=== PATIENT | female | born 1950 | race Caucasian/White ===

== ENCOUNTER → 2016-12-13 | Outpatient (CLI) | payer MEDICARE, MEDICAID | LOC: OD 15:26 | PROVIDERS: ATTEND Specialist | DX: C25.0 Malignant neoplasm of head of pancreas (principal); R97.0 Elevated carcinoembryonic antigen [CEA]; R97.8 Other abnormal tumor markers | CPT/HCPCS: 36415; 82378 ==

== ENCOUNTER → 2017-01-10 | Outpatient (CLI) | payer MEDICAID, MEDICARE ==
--- NOTE | 2017-01-11 15:59 | WOMENS IMAGING REPORT ---
EXAM DESCRIPTION: 3D SCREENING MAMMO BILAT COMPLETED DATE/TIME: 01/10/2017 3:05 pm REASON FOR STUDY: ROUTINE SCREENING; Z12.31 COMPARISON: Multiple since 2009 TECHNIQUE: Standard craniocaudal and mediolateral oblique views of each breast recorded using digita l acquisition and breast tomosynthesis. LIMITATIONS: None. FINDINGS: Findings present which are benign by mammographic criteria. No suspicious masses, calcifi cations or architectural distortion. Pertinent benign findings: The left breast is larger than the right, stable. There is asymmetric fib roglandular tissue in left breast 12 o'clock position without worrisome features. This is stable ove r the series of exams. Read with the assistance of CAD. .[facility] - R2 Cenova Version 1.3 .[facility] - R2 Cenova Version 1.3 .[facility] - R2 Cenova Version 2.4 .[facility] - R2 Cenova Version 2.4 .[facility] - R2 Line Mechanic Version 9.2 Benign mammographic findings may include one or more of the following: Smooth masses, popcorn/rim/co arse calcifications, asymmetries, post-procedure changes, and lesions with long-standing stability. IMPRESSION: BENIGN MAMMOGRAPHIC FINDINGS. BIRADS 2 BREAST DENSITY: b. There are scattered areas of fibroglandular density. BIRAD: 2 BENIGN FINDING(S) RECOMMENDATION: RECOMMENDATION: ROUTINE SCREENING Please continue yearly bilateral screening tomosynthesis in December 2017 COMMENT: The patient has been notified of the results by letter per SA requirements. Additional no tification policies are in place for contacting patient with suspicious or incomplete findings. Quality ID #[id number]: The [employer] recommends an annual screening mammogram for women aged 40 years or over. This facility utilizes a reminder system to ensure that all patients receive reminder letters, and/or direct phone calls for appointments. This includes reminders for routine scr eening mammograms, diagnostic mammograms, or other Breast Imaging Interventions when appropriate. Th is patient will be placed in the appropriate reminder system. The [employer] (ACR) has developed recommendations for screening MRI of the breast s in certain patient populations, to be used in conjunction with mammography. Breast MRI surveillanc e may be appropriate for women with more than 20% lifetime risk of developing breast cancer as deter mined by genetic testing, significant family history of the disease, or history of mantle radiation f or Hodgkins Disease. ACR Practice Guidelines 2008. DBT Technology DBT is a type of tomographic mammography. With conventional mammography, overlapping breast tissue ma y make lesions difficult to detect, even with good compression. DBT uses an x-ray tube that rotates a round the breast, taking images at different angles. These images are then combined to create thin sl ices of the breast that the radiologist can view as a 3D reconstruction. The [employer] Gaming unit can perform full-field digital mammograms (2D imaging); or DBT (3D imaging); or both, in a combination mode that quickly performs both the mammogram and the tomosynthesis scan while the breast is still compressed. RS 6045F: Fluoroscopic imaging is not utilized for breast tomosynthesis. TECHNICAL DOCUMENTATION: FINDING NUMBER: (1) ASSESSMENT: (1) JOB ID: [id number] [employer]- All Rights Reserved
== END ==
LOC: WI 14:49
PROVIDERS: ATTEND Family Medicine
DX: Z12.31 Encounter for screening mammogram for malignant neoplasm of breast (principal)
CPT/HCPCS: 77063; G0202; 77067

== ENCOUNTER → 2017-12-26 | Outpatient (CLI) | payer MEDICARE, MEDICAID ==
--- NOTE | 2017-12-26 15:55 | RADIOLOGY REPORT (SQ) ---
EXAM DESCRIPTION: MRI LT LOWER JOINT WITHOUT COMPLETED DATE/TIME: 12/26/2017 3:42 pm REASON FOR STUDY: OTHER CHONDROCALCINOSIS, LEFT KNEE (M11.262) M11.262 OTHER CHONDROCALCINOSIS, LEF T KNEE COMPARISON: None. TECHNIQUE: Leftknee images acquired and stored on PACS. Multiplanar images include fat sensitive se quences as T1, water sensitive sequences as FST2 or STIR, cartilage sensitive sequences as FSPD, and gradient echo sequences. LIMITATIONS: None. FINDINGS: JOINT AND BURSAE: Small -moderate effusion. No loose bodies appreciated. BONE CORTEX AND MARROW: No alteration of signal to suggest marrow replacement. No worrisome bone lesi ons. No occult fracture. ACL: Intact. No degeneration or ganglion cyst. PCL: Intact. MCL: Intact. No periligamentous edema or fluid. LCL: Intact. No periligamentous edema or fluid. MEDIAL MENISCUS: No tear. LATERAL MENISCUS: Mild degenerative signal is suggested in the posterior horn. Heterogeneous signal in the anterior horn and probably extending into the body. Unclear if this is artifact or related to chondrocalcinosis or true tear. MEDIAL COMPARTMENT: No focal chondral lesions or reactive bone changes. LATERAL COMPARTMENT: No focal chondral lesions or reactive bone changes. PATELLA: Normal location. No focal chondral defects or reactive bone change. EXTENSOR MECHANISM: Intact. Quadriceps and patella tendons normal. SOFT TISSUES: Small popliteal cyst. Appropriate vascular flow voids. OTHER: No other significant finding. IMPRESSION: 1. Lateral meniscus changes as above which may be largely artifact. 2. Joint effusion. No loose bodies appreciated. TECHNICAL DOCUMENTATION: JOB ID: [id number] [employer]- All Rights Reserved Reading location - IP/workstation name: [email or web address]
== END ==
LOC: RAD 14:24
PROVIDERS: ATTEND Orthopaedic Surgery
DX: M11.262 Other chondrocalcinosis, left knee (principal)

== ENCOUNTER → 2018-08-12 | Outpatient (CLI) | payer MEDICARE, MEDICAID ==
--- NOTE | 2018-08-12 14:54 | RADIOLOGY REPORT (SQ) ---
EXAM DESCRIPTION: MRI CERVICAL SPINE WITHOUT COMPLETED DATE/TIME: 08/12/2018 2:30 pm REASON FOR STUDY: M54.2 CERVICALGIA M54.2 CERVICALGIA COMPARISON: None. TECHNIQUE: Sagittal and Axial imaging includes T1, T2, STIR and gradient echo sequences. LIMITATIONS: None. FINDINGS: ALIGNMENT: Minimal degenerative anterolisthesis of C6 on C7. VERTEBRAE: Intact. BONE MARROW: Reactive endplate changes C5-6 DISCS: Loss of height and T2 signal C5-6. HARDWARE: None in the spine. CORD AND BASE OF BRAIN: Normal in size and signal intensity. SOFT TISSUES: No soft tissue masses. C1-C2: No significant spinal stenosis. C2-C3: No significant spinal stenosis or exit foraminal stenosis. C3-C4: No significant spinal stenosis or exit foraminal stenosis. C4-C5: Disc osteophyte complex asymmetric left with moderate narrowing of left exit foramina. . Mild flattening of the anterior thecal sac. C5-C6: Disc osteophyte complex with moderate narrowing of the exit foramina. Flattening of the anter ior thecal sac. C6-C7: Disc osteophyte complex asymmetric left with mild narrowing of the left exit foramina. C7-T1: No significant spinal stenosis or exit foraminal stenosis. UPPER THORACIC: Incompletely imaged. No significant spinal stenosis or exit foraminal stenosis. OTHER: No other significant finding. IMPRESSION: Multilevel milder moderate spondylosis. Most prominent C5-6 with mild spinal stenosis a nd moderate narrowing of the exit foramina. TECHNICAL DOCUMENTATION: JOB ID: [id number] [employer]- All Rights Reserved Reading location - IP/workstation name: [email or web address]
== END ==
LOC: RAD 13:16
PROVIDERS: ATTEND Orthopaedic Surgery
DX: M54.2 Cervicalgia (principal); M47.892 Other spondylosis, cervical region
CPT/HCPCS: 72141

== ENCOUNTER → 2019-01-29 | Outpatient (CLI) | payer MEDICARE, MEDICAID ==
--- NOTE | 2019-01-29 16:33 | WOMENS IMAGING REPORT ---
EXAM DESCRIPTION: 3D SCREENING MAMMO BILAT COMPLETED DATE/TIME: 01/29/2019 3:05 pm REASON FOR STUDY: Z12.31 ENCOUNTER FOR SCREENING MAMMOGRAM FOR MALIGNANT NEOPLASM OF BREAST Z12.31 ENCNTR SCREEN MAMMOGRAM FOR MALIGNANT NEOPLASM OF ELMO COMPARISON: Multiple since 2009 EXAM PARAMETERS: Views: Standard craniocaudal and mediolateral oblique views of each breast recorded using digital acquisition and breast tomosynthesis. Read with the assistance of CAD. .[facility] - [employer]or Belt Repairer Version 9.2 LIMITATIONS: None. FINDINGS: No suspicious masses, suspicious calcifications or architectural distortion. No areas of c oncern. IMPRESSION: NEGATIVE MAMMOGRAM. BIRADS 1. BREAST DENSITY: b. There are scattered areas of fibroglandular density. BIRAD: ASSESSMENT: 1 NEGATIVE RECOMMENDATION: ROUTINE SCREENING COMMENT: The patient has been notified of the results by letter per MQSA requirements. Additional no tification policies are in place for contacting patient with suspicious or incomplete findings. Quality ID #[id number]: The [employer] recommends an annual screening mammogram for women aged 40 years or over. This facility utilizes a reminder system to ensure that all patients receive reminder letters, and/or direct phone calls for appointments. This includes reminders for routine scr eening mammograms, diagnostic mammograms, or other Breast Imaging Interventions when appropriate. Th is patient will be placed in the appropriate reminder system. TECHNICAL DOCUMENTATION: FINDING NUMBER: (1) ASSESSMENT: (1) JOB ID: [id number] [employer]- All Rights Reserved Reading location - IP/workstation name: [email or web address]
== END ==
LOC: WI 14:44
PROVIDERS: ATTEND Family Medicine
DX: Z12.31 Encounter for screening mammogram for malignant neoplasm of breast (principal)
CPT/HCPCS: 77063; 77067

== ENCOUNTER 2019-04-15 18:43 | Emergency (ER) | payer MEDICARE, MEDICAID ==
--- NOTE | 2019-04-15 19:43 | ER Document Report ---
ED Medical Screen (RME) - General Chief Complaint: Fall Stated Complaint: FALL/HEAD INJURY Time Seen by Provider: 04/15/19 19:36 Primary Care Provider: ED HODGES DO [Primary Care Provider] - Follow up as needed TRAVEL OUTSIDE OF THE [place] IN LAST 30 DAYS: No - HPI Notes: 04/15/19 19:42 Patient is a 68-year-old female with history of hypertension who presents complaining of having occasional weakness for the past 1 to 2 weeks with a fall on April 03 in the fall in April 04. Patient states that she was told she needed to come here for evaluation by her family doctor and for imaging of the neck. Patient has been continuing to have neck pain since the fall. She is not on any blood thinning medications. She is able to eat and drink without difficulty. She is urinating normally. No fever, chest pain, shortness of breath, abdominal pain. PHYSICAL EXAMINATION: accompanied by female nurse GENERAL: Well-appearing, well-nourished and in no acute distress. A&Ox3. Answers questions appropriately. HEAD: Atraumatic, normocephalic. Non-tender. No warner sign EYES: Pupils equal round and reactive to light, extraocular movements intact, sclera anicteric, conjunctiva are normal. No raccoon eyes/entrapment ENT: EAC clear b/l. TM's intact b/l without erythema, fluid, or perforation. Nares patent and without discharge. oropharynx clear without exudates. No tonsilar hypertrophy or erythema. Moist mucous membranes. No sinus tenderness. No hemotympanum/CSF discharge. NECK: LROM to rotation due to pain. + midline tenderness. + tenderness left trap mm. Musculoskeletal: Ext b/l: FROM to passive/active. Strength 5+/5. No deficits noted. No bony tenderness of extremities. NEUROLOGICAL: NIH 0. GCS 15. Cranial nerves grossly intact. Normal speech, normal gait. Normal sensory, motor exams. PSYCH: Normal mood, normal affect. SKIN: Warm, Dry, normal turgor, no rashes or lesions noted. - Related Data Allergies/Adverse Reactions: No Known Allergies Allergy (Verified 01/28/16 13:17) Past Medical History - Social History Chew tobacco use (# tins/day): No Frequency of alcohol use: None Drug Abuse: None - Past Medical History Cardiac Medical History: Reports: Hx Hypercholesterolemia, Hx Hypertension GI Medical History: Reports: Hx Gastroesophageal Reflux Disease Past Surgical History: Reports: Hx Cholecystectomy, Hx Orthopedic Surgery - left FA Fx - Immunizations Hx Diphtheria, Pertussis, Tetanus Vaccination: No Physical Exam - Vital signs Vitals: Temp Pulse Resp BP Pulse Ox 98.1 F 96 16 177/87 H 97 04/15/19 19:18 04/15/19 19:18 04/15/19 19:18 04/15/19 19:18 04/15/19 19:18 Course - Vital Signs Vital signs: Temp Pulse Resp BP Pulse Ox 98.1 F 96 16 177/87 H 97 04/15/19 19:34 04/15/19 19:34 04/15/19 19:34 04/15/19 19:34 04/15/19 19:34 Doctor's Discharge - Discharge Referrals: ED HODGES DO [Primary Care Provider] - Follow up as needed
[2019-04-15 20:26] LABS: APPEARANCE,URINE CLEAR; BILIRUBIN,URINE NEGATIVE (NEGATIVE); COLOR,URINE YELLOW; GLUCOSE, URINE NEGATIVE (NEGATIVE); KETONES,URINE NEGATIVE (NEGATIVE); PROTEIN,URINE NEGATIVE (NEGATIVE); URINE SPECIFIC GRAVITY 1.021; UROBILINOGEN,URINE NEGATIVE mg/dL (<2.0)
[2019-04-15 20:35] LABS: ABSOLUTE BASOPHILS # (AUTO) 0.1 10^3/uL (0.0-0.2); ABSOLUTE EOSINOPHILS # (AUTO) 0.1 10^3/uL (0.0-0.6); ABSOLUTE LYMPHOCYTES (AUTO) 2.2 10^3/uL (0.5-4.7); ABSOLUTE MONOCYTES (AUTO) 0.6 10^3/uL (0.1-1.4); ABSOLUTE NEUT (AUTO) 5.7 10^3/uL (1.7-8.2); BASOPHILS % (AUTO) 0.7 % (0-2); EOSINOPHILS % (AUTO) 1.5 % (0-6); HEMATOCRIT 31.4 % (36.0-47.0); HEMOGLOBIN 10.9 g/dL (12.0-15.5); LYMPHOCYTES % (AUTO) 25.1 % (13-45); MEAN CORPUSCULAR HEMOGLOBIN 30.8 pg (27.0-33.4); MEAN CORPUSCULAR HGB CONC 34.6 g/dL (32.0-36.0); MEAN CORPUSCULAR VOLUME 89 fl (80-97); MONOCYTES % (AUTO) 6.7 % (3-13); PLATELET COUNT 435 10^3/uL (150-450); RED BLOOD COUNT 3.53 10^6/uL (3.72-5.28); RED CELL DISTRIBUTION WIDTH 11.9 % (11.5-14.0); TOTAL CELLS COUNTED % (AUTO) 100 %; WHITE BLOOD COUNT 8.6 10^3/uL (4.0-10.5)
[2019-04-15 20:47] LABS: ALBUMIN 3.9 g/dL (3.5-5.0); ALKALINE PHOSPHATASE 97 U/L (38-126); ANION GAP 9 (5-19); ASPARTATE AMINO TRANSFERASE 21 U/L (14-36); BILIRUBIN,DIRECT 0.2 mg/dL (0.0-0.4); BILIRUBIN,TOTAL 0.2 mg/dL (0.2-1.3); BLOOD UREA NITROGEN 27 mg/dL (7-20); CARBON DIOXIDE 31 mmol/L (22-30); CHLORIDE 101 mmol/L (98-107); GLUCOSE 95 mg/dL (75-110); POTASSIUM 4.1 mmol/L (3.6-5.0); TOTAL PROTEIN 6.8 g/dL (6.3-8.2)
--- NOTE | 2019-04-15 20:49 | ER Document Report ---
ED General - General Chief Complaint: Fall Stated Complaint: FALL/HEAD INJURY Time Seen by Provider: 04/15/19 19:36 Primary Care Provider: ED HODGES DO [ACTIVE STAFF] - Follow up as needed TRAVEL OUTSIDE OF THE [place] IN LAST 30 DAYS: No - HPI Onset: Other - Patient fell on Apr 03 and Apr 04 and vincent started to have pain on in her neck Onset/Duration: Gradual Quality of pain: Achy, Sharp Severity: Moderate Pain Level: 4 Associated symptoms: None Exacerbated by: Movement Relieved by: Remaining still Similar symptoms previously: No Recently seen / treated by doctor: No Notes: 68 year old female with a history of Chronic Pain (she is followed at a pain clinic and it sounds like she is maintained on Gabapentin), HTN, HLD, GERD here for neck pain for the last 1-2 weeks. The patient says she fell twice on Apr 03 and Apr 04 and then she developed pain in her neck on which radiates to her head and to her left arm at times. The patient has been using her previously prescribed Gabapentin and Tylenol with mild relief. The patient denies weakness in her arms or hands. - Related Data Allergies/Adverse Reactions: No Known Allergies Allergy (Verified 01/28/16 13:17) Past Medical History - Social History Smoking Status: Never Smoker Chew tobacco use (# tins/day): No Frequency of alcohol use: None Drug Abuse: None Family History: Hypertension Patient has suicidal ideation: No Patient has homicidal ideation: No - Past Medical History Cardiac Medical History: Reports: Hx Hypercholesterolemia, Hx Hypertension GI Medical History: Reports: Hx Gastroesophageal Reflux Disease Musculoskeletal Medical History: Reports Other Other: Chronic Joint and Back Pains Past Surgical History: Reports: Hx Cholecystectomy, Hx Orthopedic Surgery - left FA Fx - Immunizations Hx Diphtheria, Pertussis, Tetanus Vaccination: No Hx Pneumococcal Vaccination: 01/19/11 Review of Systems - Review of Systems Constitutional: No symptoms reported EENT: No symptoms reported Cardiovascular: No symptoms reported Respiratory: No symptoms reported Gastrointestinal: No symptoms reported Genitourinary: No symptoms reported Female Genitourinary: No symptoms reported Musculoskeletal: Neck pain - which radiates to her head and left arm Skin: No symptoms reported Hematologic/Lymphatic: No symptoms reported Neurological/Psychological: No symptoms reported Physical Exam - Vital signs Vitals: Temp Pulse Resp BP Pulse Ox 98.1 F 96 16 177/87 H 97 04/15/19 19:18 04/15/19 19:18 04/15/19 19:18 04/15/19 19:18 04/15/19 19:18 - Notes Notes: GENERAL: Well-appearing, well-nourished and in no acute distress. HEAD: Atraumatic, normocephalic. EYES: Pupils equal round and reactive to light, extraocular movements intact, sclera anicteric, conjunctiva are normal. ENT: Nares patent, oropharynx clear without exudates. Moist mucous membranes. NECK: Slightly limited range of motion due to pain, midline tenderness around C5-C6 area. LUNGS: Breath sounds clear to auscultation bilaterally and equal. No wheezes r ales or rhonchi. HEART: Regular rate and rhythm without murmurs, rubs or gallops. ABDOMEN: Soft, nontender, normoactive bowel sounds. No guarding, no rebound. No masses appreciated. EXTREMITIES: Normal range of motion, no pitting or edema. No clubbing or cyanosis. NEUROLOGICAL: Cranial nerves II through XII grossly intact. Normal speech, normal gait. Normal strength and sensation in upper extremities. PSYCH: Normal mood, normal affect. SKIN: Warm, Dry, normal turgor, no rashes or lesions noted. Morning. Course - Re-evaluation Re-evalutation: 04/15/19 21:23 The patient has pain in her C Spine since a fall in late March. The CT scan shows some Retrolisthesis of C5-C6 and Degenerative changes but no acute injuries. The patient was told of her CT findings and she was was encouraged to follow up with her pain clinic and with a Spine Surgeon for further management. Since the patient likely has a Pain Contract, will DC with Naproxen and Lidocaine Patches. - Vital Signs Vital signs: Temp Pulse Resp BP Pulse Ox 98.1 F 96 16 177/87 H 97 04/15/19 19:34 04/15/19 19:34 04/15/19 19:34 04/15/19 19:34 04/15/19 19:34 - Laboratory Result Diagrams: 04/15/19 20:15 04/15/19 20:15 Laboratory results interpreted by me: 04/15/19 04/15/19 20:15 20:15 RBC 3.53 L Hgb 10.9 L Hct 31.4 L Carbon Dioxide 31 H BUN 27 H - Diagnostic Test Radiology reviewed: Image reviewed, Reports reviewed Discharge - Discharge Clinical Impression: Neck pain Condition: Fair Disposition: HOME, SELF-CARE Instructions: Neck Injury (Cervical Strain) ([facility]) Additional Instructions: Use the prescribed Naproxen for pain along with over the counter Tylenol and your previously prescribed Gabapentin. Also use the prescribed Lidocaine Patches. Follow up with your primary care doctor, your Pain Clinic, and consider follow up with a Spine Surgeon or an Orthopedic Surgeon. Prescriptions: Lidocaine [Lidoderm 5% (700 mg) Transdermal Patch] 1 patch TP DAILY #30 adh..patch Referrals: ED HODGES DO [ACTIVE STAFF] - Follow up as needed
--- NOTE | 2019-04-15 21:19 | RADIOLOGY REPORT (SQ) ---
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 COMPARISON: None. TECHNIQUE: CT scan of the cervical spine without IV contrast. This exam was performed according to our departmental dose-optimization program, which includes automated exposure control, adjustment of the mA and/or kV according to patient size and/or use of iterative reconstruction technique. FINDINGS: No acute cervical fracture or prevertebral soft tissue swelling is seen. There is straightening of the normal cervical lordosis, which may be due to cervical collar, muscle spasm, or patient positioning. Retrolisthesis of C5-C6. Multilevel degenerative disc disease along with facet arthropathy is present. IMPRESSION: No acute fracture or subluxation of the cervical spine.
[2019-04-15 22:50] VITALS: BP 182/77
== END 2019-04-15 22:47 | disposition home or self-care (01) ==
LOC: ER 18:43
DX: S09.90XA Unspecified injury of head, initial encounter (principal); W19.XXXA Unspecified fall, initial encounter; G89.29 Other chronic pain; M54.2 Cervicalgia; I10 Essential (primary) hypertension; E78.00 Pure hypercholesterolemia, unspecified; Z90.49 Acquired absence of other specified parts of digestive tract
CPT/HCPCS: 36415; 72125; 80053; 81001; 85025; 99284

== ENCOUNTER → 2019-04-29 | Outpatient (CLI) | payer MEDICARE, MEDICAID ==
--- NOTE | 2019-04-29 13:57 | RADIOLOGY REPORT (SQ) ---
EXAM DESCRIPTION: CT HEAD WITHOUT COMPLETED DATE/TIME: 04/29/2019 1:46 pm REASON FOR STUDY: REPEATED FALLS (R29.6) M54.16 RADICULOPATHY, LUMBAR REGION M25.511 PAIN IN RIGHT SHOULDER R29.6 REPEATED FALLS COMPARISON: None. TECHNIQUE: Axial images acquired through the brain without intravenous contrast. Images reviewed wi th bone, brain and subdural windows. Additional sagittal and coronal reconstructions were generated. Images stored on PACS. All CT scanners at this facility use dose modulation, iterative reconstruction, and/or weight based d osing when appropriate to reduce radiation dose to as low as reasonably achievable (ALARA). [facility]: Dose Right [facility]: CareDose [facility]: Dose Right [facility]: Teradose 4D [facility]: eeGeo RADIATION DOSE: CT Rad equipment meets quality standard of care and radiation dose reduction techniq ues were employed. CTDIvol: 48.6 mGy. DLP: 929 mGy-cm. mGy. LIMITATIONS: None. FINDINGS: VENTRICLES: Normal size and contour. CEREBRUM: No masses. No hemorrhage. No midline shift. No evidence for acute infarction. Normal gra y/white matter differentiation. No areas of low density in the white matter. CEREBELLUM: No masses. No hemorrhage. No alteration of density. No evidence for acute infarction. EXTRAAXIAL SPACES: No fluid collections. No masses. ORBITS AND GLOBE: No intra- or extraconal masses. Normal contour of globe without masses. CALVARIUM: No fracture. PARANASAL SINUSES: No fluid or mucosal thickening. SOFT TISSUES: No mass or hematoma. OTHER: No other significant finding. IMPRESSION: NORMAL BRAIN CT WITHOUT CONTRAST. EVIDENCE OF ACUTE STROKE: NO. COMMENT: Quality ID # [id number]: Final reports with documentation of one or more dose reduction techniques (e.g., Automated exposure control, adjustment of the mA and/or kV according to patient size, use of iterative reconstruction technique) TECHNICAL DOCUMENTATION: JOB ID: [id number] [employer]- All Rights Reserved Reading location - IP/workstation name: [email or web address]
--- NOTE | 2019-04-29 15:04 | RADIOLOGY REPORT (SQ) ---
EXAM DESCRIPTION: MRI LUMBAR SPINE WITHOUT COMPLETED DATE/TIME: 04/29/2019 2:48 pm REASON FOR STUDY: LUMBAR RADICULOPATHY (M54.16) M54.16 RADICULOPATHY, LUMBAR REGION M25.511 PAIN I N RIGHT SHOULDER R29.6 REPEATED FALLS COMPARISON: None. TECHNIQUE: Sagittal and Axial imaging includes T1, T2, STIR and gradient echo sequences. Coronal T2/ HASTE imaging. LIMITATIONS: None. FINDINGS: VISUALIZED UPPER ABDOMEN: Limited evaluation. No acute or suspicious findings suggested. SEGMENTATION: No transitional anatomy. The lowest well-developed disc space is labeled L5-S1. ALIGNMENT: Anatomic. VERTEBRAE: Intact. BONE MARROW: Normal. No marrow replacement or reactive changes. DISC SIGNAL: Loss of normal height and signal throughout the lumbar spine. POSTERIOR ELEMENTS: Generally intact. No pars defect evident. HARDWARE: None in the spine. CORD AND CONUS: Normal in size and signal intensity. Conus at the appropriate level. SOFT TISSUES: No aortic aneurysm seen. No bulky retroperitoneal adenopathy or mass. No paraspinal mas s or fluid. L1-L2: No significant spinal stenosis or exit foraminal stenosis. L2-L3: Broad-based annular disc bulging with bilateral facet arthropathy. There is mild central sten osis. There is asymmetric narrowing of the right neural foramina. L3-L4: Broad-based disc/osteophyte complex. Bilateral facet arthropathy. Mild central canal stenosi s. Bilateral foraminal narrowing right greater than left. L4-L5: Broad-based disc/ osteophyte complex with bilateral facet arthropathy. This results in modera te central canal stenosis. There is bilateral foraminal narrowing left greater than right. L5-S1: Annular disc bulging. Mild central stenosis. Bilateral foraminal narrowing left greater than right. LOWER THORACIC: Incompletely imaged. No stenosis seen. SACRUM: Visualized upper sacrum intact. OTHER: No other significant findings. IMPRESSION: 1. Multilevel spondylosis. 2. Broad-based annular disc bulging at L2-L3 with bilateral facet arthropathy. This results in mild central stenosis. There is asymmetric narrowing of the right neural foramina. 3. Broad-based disc/ osteophyte complex at L3-L4 along with facet arthropathy. This results in mild central stenosis and bilateral foraminal stenosis right greater than left. 4. Broad-based disc/ osteophyte complex at L4-L5 with bilateral facet arthropathy. This results in moderate central canal stenosis and bilateral foraminal narrowing left greater than right. 5. Annular disc bulging at L5-S1 resulting in mild central stenosis. There is bilateral foraminal s tenosis left greater than right. TECHNICAL DOCUMENTATION: JOB ID: [id number] [employer]- All Rights Reserved Reading location - IP/workstation name: [email or web address]
--- NOTE | 2019-04-29 16:16 | RADIOLOGY REPORT (SQ) ---
EXAM DESCRIPTION: MRI RT UPPER JOINT WITHOUT COMPLETED DATE/TIME: 04/29/2019 2:48 pm REASON FOR STUDY: PAIN IN RIGHT SHOULDER (M25.511) M54.16 RADICULOPATHY, LUMBAR REGION M25.511 AFIA N IN RIGHT SHOULDER R29.6 REPEATED FALLS COMPARISON: None. TECHNIQUE: Right shoulder images acquired and stored on PACS. Multiplanar imaging to include fat sen sitive sequences such as T1, water sensitive sequences such as FST2/STIR, cartilage sensitive sequenc es such as FSPD/gradient-echo sequences. LIMITATIONS: None. FINDINGS: BONE MARROW AND CORTEX: No worrisome bone lesions or marrow replacement. No occult fractur es. JOINT OR BURSAL EFFUSION: Small joint effusion. No loose bodies. GLENO-HUMERAL ARTICULATION: Normal articulation. No subluxation. No cystic change. No osteophytes or cartilage loss. ACROMION AND AC JOINT: Predominantly dorsal degenerative overgrowth. No subacromial compromise. ROTATOR CUFF AND INTERVAL: Diffuse cuff thickening, marked tendinosis. No high-grade partial or full -thickness tear. Mild bursal surface fraying particularly in the supraspinatus. No cuff muscle atro phy. LABRUM AND BICEPS LABRAL COMPLEX: Intact. No labral tear. Intra-articular long-head biceps tendon n ormal. Distal biceps in normal location in bicipital groove. REMAINDER OF LABRUM AND IGHL : No gross tear or paralabral cyst formation. Labral evaluation is less than optimal without joint distention. No thickening of IGHL to suggest adhesive capsulitis. PERIARTICULAR AND ADJACENT SOFT TISSUES: No masses or abnormal nodes. OTHER: No other significant finding. IMPRESSION: 1. AC arthropathy. 2. Cuff tendinosis. No high-grade partial or full-thickness tear detected. TECHNICAL DOCUMENTATION: JOB ID: [id number] [employer]- All Rights Reserved Reading location - IP/workstation name: [email or web address]
== END ==
LOC: RAD 13:23
PROVIDERS: ATTEND Anesthesiology Pain Medicine
DX: S06.0X0A Concussion without loss of consciousness, initial encounter (principal); W19.XXXA Unspecified fall, initial encounter; R41.82 Altered mental status, unspecified; R29.6 Repeated falls; M12.811 Other specific arthropathies, not elsewhere classified, right shoulder; M25.511 Pain in right shoulder; M54.16 Radiculopathy, lumbar region
CPT/HCPCS: 70450; 72148

== ENCOUNTER → 2019-05-01 | Outpatient (CLI) | payer MEDICARE, MEDICAID ==
[2019-05-01 14:44] LABS: ABSOLUTE RETICS # 0.062 10^6/uL (0.028-0.122); HEMATOCRIT 32.8 % (36.0-47.0); MEAN CORPUSCULAR HEMOGLOBIN 29.4 pg (27.0-33.4); MEAN CORPUSCULAR HGB CONC 33.5 g/dL (32.0-36.0); MEAN CORPUSCULAR VOLUME 88 fl (80-97); PLATELET COUNT 377 10^3/uL (150-450); RED BLOOD COUNT 3.73 10^6/uL (3.72-5.28); RED CELL DISTRIBUTION WIDTH 12.4 % (11.5-14.0); RETICULOCYTE COUNT (AUTO) 1.65 % (0.66-2.85); WHITE BLOOD COUNT 5.2 10^3/uL (4.0-10.5)
[2019-05-01 15:04] LABS: ANION GAP 11 (5-19); BLOOD UREA NITROGEN 19 mg/dL (7-20); CALCIUM 9.8 mg/dL (8.4-10.2); CARBON DIOXIDE 28 mmol/L (22-30); CHLORIDE 104 mmol/L (98-107); CHOLESTEROL 204.84 mg/dL (0-200); GLUCOSE 95 mg/dL (75-110); TRIGLYCERIDES 91 mg/dL (<150)
[2019-05-01 15:16] LABS: DIRECT LDL 126 mg/dL (<100)
== END ==
LOC: OD 13:45
PROVIDERS: ATTEND Family Medicine
DX: E78.5 Hyperlipidemia, unspecified (principal); I10 Essential (primary) hypertension; D64.9 Anemia, unspecified; Z79.899 Other long term (current) drug therapy
CPT/HCPCS: 36415; 80048; 80061; 83036; 84443; 85027; 85045

== ENCOUNTER 2019-05-31 20:37 | Inpatient (IN) | payer MEDICARE, MEDICAID ==
[2019-05-31] MEDS ORDERED: ONDANSETRON HCL INJ/PF 4 MG/2 ML SDV IV ONE (21:08)
[2019-05-31] MEDS ORDERED: NORMAL SALINE 1000 ML 1,000 ML IV ONE ×2 (21:08→23:17)
--- NOTE | 2019-05-31 21:14 | ER Document Report ---
ED General - General Stated Complaint: RIGHT KNEE PAIN Time Seen by Provider: 05/31/19 20:57 Notes: Patient is a 68-year-old female that comes from home by EMS for chief complaint of weakness and not being able to get up. Patient states that her knee started hurting and swelling (right knee), she states she has not been able to get up and became progressively weak, she states she has been lying on the floor since Sunday (3-4 days) until she was picked up today. EMS reports that the house was filled with trash and junk "like a hoarder", patient was found covered in feces and urine, patient had to be lifted to the stretcher. She denies vomiting, fever, difficulty breathing, fall injury. Past medical history reportedly only hypertension and arthritis in her knees. TRAVEL OUTSIDE OF THE [place] IN LAST 30 DAYS: No - Related Data Allergies/Adverse Reactions: No Known Allergies Allergy (Verified 01/28/16 13:17) Past Medical History - General Information source: Patient - Social History Smoking Status: Never Smoker Frequency of alcohol use: None Drug Abuse: None Lives with: Family Family History: Hypertension - Past Medical History Cardiac Medical History: Reports: Hx Hypercholesterolemia, Hx Hypertension GI Medical History: Reports: Hx Gastroesophageal Reflux Disease Past Surgical History: Reports: Hx Cholecystectomy, Hx Orthopedic Surgery - left FA Fx - Immunizations Hx Diphtheria, Pertussis, Tetanus Vaccination: No Hx Pneumococcal Vaccination: 01/19/11 Review of Systems - Review of Systems Constitutional: See HPI EENT: No symptoms reported Cardiovascular: No symptoms reported Respiratory: No symptoms reported Gastrointestinal: No symptoms reported Genitourinary: No symptoms reported Female Genitourinary: No symptoms reported Musculoskeletal: See HPI Skin: No symptoms reported Hematologic/Lymphatic: No symptoms reported Neurological/Psychological: No symptoms reported Physical Exam - Vital signs Vitals: Resp 18 05/31/19 20:56 - Notes Notes: GENERAL: Alert, interacts well, cooperative HEAD: Normocephalic, atraumatic. EYES: Pupils equal, round, and reactive to light. Extraocular movements intact. ENT: Oral mucosa very dry moist, tongue midline. Oropharynx unremarkable. Airway patent. NECK: Full range of motion. Supple. Trachea midline. LUNGS: Clear to auscultation bilaterally, no wheezes, rales, or rhonchi. No respiratory distress. No signs of trauma. HEART: Tachycardia, normal rhythm. No murmur ABDOMEN: Soft, non-tender. Non-distended. EXTREMITIES: Warmth and soft tissue swelling over the right knee anteriorly with pain with palpation of the area but no overt erythema. Range of motion is still intact. Left lateral mid thigh with skin breakdown and surrounding soft tissue swelling. No overt erythema or draining noted. There is tenderness to the general area. There is also some skin discoloration of the left shoulder near the point. 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 Lower extremities with some weakness and difficulty lifting both but this is equal, distal neurovascular exam intact. BACK: no cervical, thoracic, lumbar midline tenderness. No saddle anesthesia, normal distal neurovascular exam. Moves all extremities in full range of motion. NEUROLOGICAL: Alert and oriented x3. Normal speech. Cranial nerves II through XII grossly intact except very poor hearing. PSYCH: Normal affect, normal mood. SKIN: Warm, dry, normal turgor. Course - Re-evaluation Re-evalutation: Patient is awake, alert, cooperative. She has skin breakdown over the left hip with some surrounding bruising, bruising and abrasion over the left shoulder although she insists that she did not fall. This could be simply from a lying on her side for days. Patient is tachycardic, has extremely dry mucous membranes, and has swelling and pain to the right knee. Physical exam unremarkable otherwise. Work-up pending. CBC shows leukocytosis at greater than 20,000, no bandemia. Nonspecific minimal normocytic anemia. Chemistry shows elevated BUN but unremarkable creatinine, CK is very elevated at greater than 1500 (especially given patient's small size and emaciated appearance). Urine shows large amount of blood on dipstick with some on automation, urinary tract infection. Given Rocephin, IV fluids, clinical picture is consistent with skin breakdown, patient is persistently tachycardic, she has suspected rhabdomyolysis and urinary tract infection. She is not febrile or hypotensive. Patient is so weak she cannot stand. She will require hospitalization and possible placement. Discussed with Dr. Gorman, hospitalist, she is accepted to [facility] full admission. I discussed with patient, she states appreciation and agreement. - Vital Signs Vital signs: Temp Pulse Resp BP Pulse Ox 99.9 F 126 H 17 140/32 H 99 06/01/19 03:43 06/01/19 03:43 06/01/19 03:43 06/01/19 03:43 06/01/19 03:43 - Laboratory Result Diagrams: 06/01/19 04:50 06/01/19 04:50 Laboratory results interpreted by me: 05/31/19 05/31/19 05/31/19 21:00 21:00 21:00 WBC 22.1 H Hgb 11.7 L Hct 34.7 L Seg Neuts % (Manual) 91 H Lymphocytes % (Manual) 4 L Abs Neuts (Manual) 20.1 H Sodium 133.4 L Potassium 3.4 L Chloride 96 L BUN 42 H Glucose 170 H Direct Bilirubin 0.5 H AST 67 H Alkaline Phosphatase 131 H Creatine Kinase 1388 H Total Protein 6.2 L Albumin 3.1 L Prealbumin 5.2 L Urine Protein Urine Ketones Urine Blood Urine Urobilinogen Ur Leukocyte Esterase 05/31/19 23:50 WBC Hgb Hct Seg Neuts % (Manual) Lymphocytes % (Manual) Abs Neuts (Manual) Sodium Potassium Chloride BUN Glucose Direct Bilirubin AST Alkaline Phosphatase Creatine Kinase Total Protein Albumin Prealbumin Urine Protein >=500 H Urine Ketones TRACE H Urine Blood LARGE H Urine Urobilinogen 4.0 H Ur Leukocyte Esterase SMALL H Discharge - Discharge Clinical Impression: Weakness Urinary tract infection Qualifiers: Urinary tract infection type: site unspecified Hematuria presence: with hematuria Qualified Code(s): N39.0 - Urinary tract infection, site not specified Rhabdomyolysis Qualifiers: Rhabdomyolysis type: non-traumatic Qualified Code(s): M62.82 - Rhabdomyolysis Condition: Stable Disposition: ADMITTED INPATIENT Admitting Provider: Sherif (Hospitalist) Unit Admitted: Telemetry
[2019-05-31 21:33] LABS: HEMATOCRIT 34.7 % (36.0-47.0); HEMOGLOBIN 11.7 g/dL (12.0-15.5); MEAN CORPUSCULAR HEMOGLOBIN 28.7 pg (27.0-33.4); MEAN CORPUSCULAR HGB CONC 33.7 g/dL (32.0-36.0); MEAN CORPUSCULAR VOLUME 85 fl (80-97); PLATELET COUNT 358 10^3/uL (150-450); RED BLOOD COUNT 4.07 10^6/uL (3.72-5.28); RED CELL DISTRIBUTION WIDTH 13.8 % (11.5-14.0); WHITE BLOOD COUNT 22.1 10^3/uL (4.0-10.5)
[2019-05-31 21:39] LABS: ALBUMIN 3.1 g/dL (3.5-5.0); ALKALINE PHOSPHATASE 131 U/L (38-126); ANION GAP 13 (5-19); ASPARTATE AMINO TRANSFERASE 67 U/L (14-36); BILIRUBIN,DIRECT 0.5 mg/dL (0.0-0.4); BLOOD UREA NITROGEN 42 mg/dL (7-20); CALCIUM 9.2 mg/dL (8.4-10.2); CARBON DIOXIDE 24 mmol/L (22-30); CHLORIDE 96 mmol/L (98-107); CREATINE KINASE 1388 U/L (30-135); GLUCOSE 170 mg/dL (75-110); POTASSIUM 3.4 mmol/L (3.6-5.0); TOTAL PROTEIN 6.2 g/dL (6.3-8.2)
[2019-05-31 22:09] LABS: ABSOLUTE LYMPHOCYTES# (MANUAL) 0.9 10^3/uL (0.5-4.7); ABSOLUTE MONOCYTES # (MANUAL) 1.1 10^3/uL (0.1-1.4); BASOPHILS % (MANUAL) 0 % (0-2); EOSINOPHILS % (MANUAL) 0 % (0-6); LYMPHOCYTES % (MANUAL) 4 % (13-45); MONOCYTES % (MANUAL) 5 % (3-13); SEGMENTED NEUTROPHILS % (MAN) 91 % (42-78); TOTAL CELLS COUNTED 100
--- NOTE | 2019-05-31 22:09 | RADIOLOGY REPORT (SQ) ---
EXAM DESCRIPTION: Left shoulder RadLex: XR SHOULDER 2 OR MORE VIEWS Views: 3 CLINICAL HISTORY: 68 years Female; bruising, pain; COMPARISON: None. FINDINGS: Negative for acute fracture, dislocation, or radiopaque foreign body. There are chronic degenerative changes at the AC joint, with mild reactive bone formation. No subluxation. Surgical staple line is noted at the right lung apex. IMPRESSION: 1. No acute findings.
[2019-05-31 22:10] LABS: PLATELET COMMENT ADEQUATE; RBC MORPHOLOGY COMMENT NORMO-CYTIC/CHROMIC
--- NOTE | 2019-05-31 22:10 | RADIOLOGY REPORT (SQ) ---
EXAM DESCRIPTION: XR CHEST 1 VIEW COMPLETED DATE/TME: 05/31/2019 21:07 CLINICAL HISTORY: 68 years, Female, weakness COMPARISON: Prior study from 05/12/2014 NUMBER OF VIEWS: One TECHNIQUE: Single frontal view of the chest was obtained portably LIMITATIONS: None. FINDINGS: Cardiac and mediastinal contours are stable in appearance. Suture line projects over the right apex. Lungs are otherwise clear. No pleural effusion or pneumothorax. Surgical clips project over the right upper quadrant. IMPRESSION: No acute disease. copyright 2010 [employer]- All Rights Reserved
--- NOTE | 2019-05-31 22:10 | RADIOLOGY REPORT (SQ) ---
EXAM DESCRIPTION: XR KNEE 4 OR MORE VIEWS COMPLETED DATE/TME: 05/31/2019 21:07 CLINICAL HISTORY: 68 years, Female, swelling, pain COMPARISON: None. NUMBER OF VIEWS: 4 TECHNIQUE: Right LIMITATIONS: None. FINDINGS: No acute displaced fracture. Alignment is anatomic. Small to moderate joint effusion. Osteoarthritis. Chondrocalcinosis IMPRESSION: No acute bony injury to the knee. Small to moderate joint effusion copyright 2010 [employer]- All Rights Reserved
--- NOTE | 2019-05-31 22:15 | RADIOLOGY REPORT (SQ) ---
EXAM DESCRIPTION: XR HIP 2 OR MORE VIEWS COMPLETED DATE/TME: 05/31/2019 21:07 CLINICAL HISTORY: 68 years, Female, bruising, swelling, pain COMPARISON: None. NUMBER OF VIEWS: 2 TECHNIQUE: AP pelvis single view left hip LIMITATIONS: None. FINDINGS: Osteoarthritis. No acute fracture. Vascular calcification. Moderate hard stool within the colon IMPRESSION: No acute displaced fracture of the left hip. Osteoarthritis copyright 2010 [employer]- All Rights Reserved
[2019-05-31] MEDS ORDERED: MORPHINE SULFATE 10 MG/ML INJ IV ONE (22:32)
[2019-06-01 00:08] LABS: APPEARANCE,URINE CLOUDY; BILIRUBIN,URINE NEGATIVE (NEGATIVE); CALCIUM OXALATE CRYSTALS,URINE RARE /HPF; COLOR,URINE AMBER; GLUCOSE, URINE NEGATIVE (NEGATIVE); KETONES,URINE TRACE mg/dL (NEGATIVE); LEUKOCYTE ESTERASE,URINE SMALL (NEGATIVE); NITRITE,URINE NEGATIVE (NEGATIVE); PROTEIN,URINE >=500 mg/dL (NEGATIVE); URINE SPECIFIC GRAVITY 1.026
[2019-06-01] MEDS ORDERED: CEFTRIAXONE 1 GM/D5W RTU 1 GM/50 ML RTUPB IV ONE (00:23)
[2019-06-01] MEDS ORDERED: MAGNESIUM HYDROXIDE SUSP 30 ML UDCUP PO PRN (00:38)
[2019-06-01] MEDS ORDERED: MAG HYDROX/AL HYDROX/SIMETH SUSP 30 ML UDCUP PO PRN (00:38)
[2019-06-01] MEDS ORDERED: IPRATROPIUM/ALBUTEROL 0.5-2.5 MG/3 ML AMPUL NEB PRN (00:38)
[2019-06-01] MEDS ORDERED: AMLODIPINE BESYLATE 5 MG TABLET PO ONE (01:00)
[2019-06-01 01:21] LABS: PHOSPHORUS 3.3 mg/dL (2.5-4.5)
[2019-06-01 01:27] LABS: PREALBUMIN 5.2 mg/dL (17.6-36.0)
--- NOTE | 2019-06-01 03:25 | PDOC H&P ---
History of Present Illness Admission Date/PCP: 06/01/19 00:55 TYRONE FLORES MD Patient complains of: Right knee pain History of Present Illness: OSMAN VALERIO is a 68 year old female with past medical history of difficulty hearing, chronic pain and narcotic use who presents to the emergency room via EMS. She was found on the floor after 3 days disheveled surrounded by trash and excrement the resides with her mother and sister. Patient is unable to provide significant history that led up to her being found on the ground. In the emergency room she is found to have leukocytosis, rhabdomyolysis and a urinary tract infection. She is started on empiric antibiotics, IV fluids and referred to the hospitalist for admission. Patient is unable to recall the names of her medications Past Medical History Cardiac Medical History: Reports: Hyperlipidema, Hypertension GI Medical History: Reports: Gastroesophageal Reflux Disease Psychiatric Medical History: Denies: Dementia, Substance Abuse, Tobacco Dependency Past Surgical History Past Surgical History: Reports: Cholecystectomy, Orthopedic Surgery - left FA Fx Social History Information Source: Patient, [facility] Lives with: Family Smoking Status: Never Smoker Frequency of Alcohol Use: None Drugs: None - Advance Directive Resuscitation Status: Full Code Family History Family History: Hypertension Parental Family History Reviewed: Yes Children Family History Reviewed: Yes Sibling(s) Family History Reviewed.: Yes Medication/Allergy Home Medications: Lidocaine [Lidoderm 5% (700 mg) Transdermal Patch] 1 patch TP DAILY #30 adh..pat ch 04/15/19 Naproxen 500 mg PO BID PRN #14 tablet 04/15/19 Allergies/Adverse Reactions: No Known Allergies Allergy (Verified 01/28/16 13:17) Physical Exam Vital Signs: Temp Pulse Resp BP Pulse Ox 99.5 F 19 167/93 H 96 05/31/19 21:23 06/01/19 02:01 06/01/19 02:01 06/01/19 02:48 Intake & Output 05/30/19 05/31/19 06/01/19 11:59 11:59 11:59 Intake Total 2049 Balance 2049 Weight 57.7 kg General appearance: PRESENT: cooperative, disheveled, severe distress, well- developed. ABSENT: well-nourished Head exam: PRESENT: atraumatic, normocephalic Eye exam: PRESENT: conjunctiva pink, EOMI, PERRLA. ABSENT: scleral icterus Ear exam: PRESENT: normal external ear exam Mouth exam: PRESENT: dry mucosa, tongue midline Neck exam: ABSENT: carotid bruit, JVD, lymphadenopathy, thyromegaly Respiratory exam: ABSENT: accessory muscle use, prolonged expiratory phas, rales, wheezes Cardiovascular exam: PRESENT: RRR. ABSENT: diastolic murmur, rubs, systolic mu rmur Pulses: PRESENT: normal dorsalis pedis pul Vascular exam: PRESENT: normal capillary refill GI/Abdominal exam: PRESENT: normal bowel sounds, soft. ABSENT: distended, guarding, mass, organolmegaly, rebound, tenderness Rectal exam: PRESENT: deferred Extremities exam: PRESENT: tenderness - Left acromium process ecchymosis without deformity, other - Right lateral thigh with stage II decubiti Neurological exam: PRESENT: alert, awake, oriented to person, oriented to place, oriented to time, oriented to situation, CN II-XII grossly intact. ABSENT: motor sensory deficit Psychiatric exam: PRESENT: appropriate affect, normal mood. ABSENT: homicidal ideation, suicidal ideation Skin exam: PRESENT: abrasion, erythema, other - 5 x 5 cm left lateral thigh stage II decubitus. ABSENT: mottled, normal color, pallor, petechiae, rash Results Laboratory Results: 05/31/19 21:00 05/31/19 21:00 05/31/19 05/31/19 05/31/19 21:00 21:00 21:00 WBC 22.1 H RBC 4.07 Hgb 11.7 L Hct 34.7 L MCV 85 MCH 28.7 MCHC 33.7 RDW 13.8 Plt Count 358 Seg Neutrophils % Not Reportable Sodium 133.4 L Potassium 3.4 L Chloride 96 L Carbon Dioxide 24 Anion Gap 13 BUN 42 H Creatinine 0.83 Est GFR ( Amer) > 60 Glucose 170 H Calcium 9.2 Phosphorus Magnesium 1.9 Total Bilirubin 1.0 AST 67 H Alkaline Phosphatase 131 H Total Protein 6.2 L Albumin 3.1 L Prealbumin TSH Urine Color Urine Appearance Urine pH Ur Specific [place] Urine Protein Urine Glucose (UA) Urine Ketones Urine Blood Urine Nitrite Ur Leukocyte Esterase Urine WBC (Auto) Urine RBC (Auto) 05/31/19 05/31/19 05/31/19 21:00 21:00 23:50 WBC RBC Hgb Hct MCV MCH MCHC RDW Plt Count Seg Neutrophils % Sodium Potassium Chloride Carbon Dioxide Anion Gap BUN Creatinine Est GFR ( Amer) Glucose Calcium Phosphorus 3.3 Magnesium Total Bilirubin AST Alkaline Phosphatase Total Protein Albumin Prealbumin 5.2 L TSH 1.56 Urine Color AYESHA Urine Appearance CLOUDY Urine pH 6.0 Ur Specific [place] 1.026 Urine Protein >=500 H Urine Glucose (UA) NEGATIVE Urine Ketones TRACE H Urine Blood LARGE H Urine Nitrite NEGATIVE Ur Leukocyte Esterase SMALL H Urine WBC (Auto) 53 Urine RBC (Auto) 24 05/31/19 05/31/19 21:00 21:00 Creatine Kinase 1388 H Troponin I 0.028 Impressions: Chest X-Ray 05/31/19 21:07 IMPRESSION: No acute disease. copyright 2010 [employer]- All Rights Reserved Hip X-Ray 05/31/19 21:07 IMPRESSION: No acute displaced fracture of the left hip. Osteoarthritis copyright 2010 [employer]- All Rights Reserved Knee X-Ray 05/31/19 21:07 IMPRESSION: No acute bony injury to the knee. Small to moderate joint effusion copyright 2010 [employer] All Rights Reserved Shoulder X-Ray 05/31/19 21:07 IMPRESSION: 1. No acute findings. Assessment and Plan - Diagnosis (1) Hypertension Is this a current diagnosis for this admission?: Yes Plan: Norvasc, hydralazine as needed (2) Rhabdomyolysis Qualifiers: Rhabdomyolysis type: non-traumatic Qualified Code(s): M62.82 - Rhabdomyol ysis Is this a current diagnosis for this admission?: Yes Plan: Secondary to prolonged immobile state likely complicated by narcotics. IV fluid challenge, follow-up chemistry and total CK (3) Urinary tract infection Qualifiers: Urinary tract infection type: site unspecified Hematuria presence: with hematuria Qualified Code(s): N39.0 - Urinary tract infection, site not specified; R31.9 - Hematuria, unspecified Is this a current diagnosis for this admission?: Yes Plan: Empiric antibiotics, follow-up blood and urine culture (4) Hypokalemia Is this a current diagnosis for this admission?: Yes Plan: Potassium repletion, follow-up magnesium and phosphate level (5) Failure to thrive Is this a current diagnosis for this admission?: Yes Plan: Discharge planning consult given living condition (6) Weakness Is this a current diagnosis for this admission?: Yes Plan: Physical and Occupational Therapy consult - Time Time Spent with patient: 25-34 minutes - Inpatient Certification Medical Necessity: Significant Comorbidiites Make Outpatient Treatment Too Risky, Need Close Monitoring Due to Risk of Patient Decompensation
[2019-06-01] MEDS: NORMAL SALINE 1000 ML 1,000 ML IV PRN ×3 (03:44→15:14)
[2019-06-01] MEDS ORDERED: INFLUENZA QUAD (6MOS+) 2019-20 VAC 0.5 ML SYR IM ONE (04:25)
[2019-06-01 05:22] LABS: ABSOLUTE BASOPHILS # (AUTO) 0.2 10^3/uL (0.0-0.2); ABSOLUTE MONOCYTES (AUTO) 1.7 10^3/uL (0.1-1.4); ABSOLUTE NEUT (AUTO) 14.9 10^3/uL (1.7-8.2); HEMATOCRIT 31.4 % (36.0-47.0); HEMOGLOBIN 10.6 g/dL (12.0-15.5); LYMPHOCYTES % (AUTO) 5.5 % (13-45); MEAN CORPUSCULAR HEMOGLOBIN 28.4 pg (27.0-33.4); MEAN CORPUSCULAR HGB CONC 33.7 g/dL (32.0-36.0); MEAN CORPUSCULAR VOLUME 84 fl (80-97); MONOCYTES % (AUTO) 9.7 % (3-13); PLATELET COUNT 299 10^3/uL (150-450); RED BLOOD COUNT 3.73 10^6/uL (3.72-5.28); RED CELL DISTRIBUTION WIDTH 13.3 % (11.5-14.0); SEGMENTED NEUTROPHILS % (AUTO) 83.8 % (42-78); TOTAL CELLS COUNTED % (AUTO) 100 %; WHITE BLOOD COUNT 17.8 10^3/uL (4.0-10.5)
[2019-06-01 05:37] LABS: ANION GAP 10 (5-19); BLOOD UREA NITROGEN 33 mg/dL (7-20); CALCIUM 8.8 mg/dL (8.4-10.2); CARBON DIOXIDE 24 mmol/L (22-30); CHLORIDE 100 mmol/L (98-107); GLUCOSE 124 mg/dL (75-110); POTASSIUM 3.2 mmol/L (3.6-5.0)
[2019-06-01] MEDS: HEPARIN SOD (PORCINE) 5,000 UNIT/ML 1 ML VIAL SUBCUT SCH ×3 (05:50→21:44)
[2019-06-01] MEDS: ACETAMINOPHEN 325 MG TABLET PO PRN ×4 (06:15→18:20)
[2019-06-01] MEDS: DOCUSATE SODIUM 100 MG CAPSULE PO SCH ×2 (10:10→17:46)
[2019-06-01] MEDS: AMLODIPINE BESYLATE 5 MG TABLET PO SCH ×2 (10:10→21:46)
[2019-06-01] MEDS: POTASSIUM CHLORIDE 10 MEQ TABLET.ER PO SCH ×2 (14:06→21:44)
[2019-06-01] MEDS: TRAMADOL HCL 50 MG TABLET PO PRN ×2 (15:10→21:45)
[2019-06-01] MEDS: VERAPAMIL HCL 240 MG TABLET.SA PO SCH (15:10)
[2019-06-01] MEDS: FLUTICASONE NASAL SPRAY 50 MCG/SPRY 120 SPRAY/16 GM NAREB SCH (17:47)
--- NOTE | 2019-06-01 18:29 | EKG REPORT ---
SEVERITY:- ABNORMAL ECG - SINUS TACHYCARDIA NONSPECIFIC INTRAVENTRICULAR CONDUCTION DELAY : Confirmed by: Elli Viveros MD 01-Jun-2019 18:28:49
[2019-06-01] MEDS: DULOXETINE HCL 30 MG CAPSULE.DR PO SCH (21:45)
[2019-06-01] MEDS: CEFTRIAXONE 1 GM/D5W RTU 1 GM/50 ML RTUPB IV SCH (21:45)
[2019-06-01] MEDS: GABAPENTIN 400 MG CAPSULE PO SCH (21:45)
[2019-06-02] MEDS: TRAMADOL HCL 50 MG TABLET PO PRN ×2 (05:29→21:39)
[2019-06-02] MEDS: HEPARIN SOD (PORCINE) 5,000 UNIT/ML 1 ML VIAL SUBCUT SCH ×3 (05:30→21:39)
[2019-06-02 07:13] LABS: ABSOLUTE BASOPHILS # (AUTO) 0.2 10^3/uL (0.0-0.2); ABSOLUTE EOSINOPHILS # (AUTO) 0.1 10^3/uL (0.0-0.6); ABSOLUTE LYMPHOCYTES (AUTO) 1.3 10^3/uL (0.5-4.7); ABSOLUTE MONOCYTES (AUTO) 1.2 10^3/uL (0.1-1.4); ABSOLUTE NEUT (AUTO) 11.2 10^3/uL (1.7-8.2); BASOPHILS % (AUTO) 1.1 % (0-2); EOSINOPHILS % (AUTO) 0.4 % (0-6); HEMATOCRIT 29.6 % (36.0-47.0); HEMOGLOBIN 9.8 g/dL (12.0-15.5); LYMPHOCYTES % (AUTO) 9.5 % (13-45); MEAN CORPUSCULAR HEMOGLOBIN 28.3 pg (27.0-33.4); MEAN CORPUSCULAR HGB CONC 33.2 g/dL (32.0-36.0); MEAN CORPUSCULAR VOLUME 85 fl (80-97); MONOCYTES % (AUTO) 8.5 % (3-13); PLATELET COUNT 319 10^3/uL (150-450); RED BLOOD COUNT 3.47 10^6/uL (3.72-5.28); SEGMENTED NEUTROPHILS % (AUTO) 80.5 % (42-78); TOTAL CELLS COUNTED % (AUTO) 100 %; WHITE BLOOD COUNT 13.9 10^3/uL (4.0-10.5)
[2019-06-02 07:35] LABS: ANION GAP 9 (5-19); BLOOD UREA NITROGEN 22 mg/dL (7-20); CALCIUM 8.6 mg/dL (8.4-10.2); CARBON DIOXIDE 23 mmol/L (22-30); CHLORIDE 105 mmol/L (98-107); CREATINE KINASE 479 U/L (30-135); GLUCOSE 94 mg/dL (75-110)
[2019-06-02] MEDS: FLUTICASONE NASAL SPRAY 50 MCG/SPRY 120 SPRAY/16 GM NAREB SCH ×2 (10:40→17:58)
[2019-06-02] MEDS: DULOXETINE HCL 30 MG CAPSULE.DR PO SCH ×2 (10:41→21:36)
[2019-06-02] MEDS: AMLODIPINE BESYLATE 5 MG TABLET PO SCH ×2 (10:41→21:37)
[2019-06-02] MEDS: DOCUSATE SODIUM 100 MG CAPSULE PO SCH ×2 (10:41→17:57)
[2019-06-02] MEDS: ACETAMINOPHEN 325 MG TABLET PO PRN (10:41)
[2019-06-02] MEDS: CETIRIZINE 10 MG TABLET PO SCH (10:41)
[2019-06-02] MEDS: GABAPENTIN 400 MG CAPSULE PO SCH ×2 (10:41→21:39)
[2019-06-02] MEDS: VERAPAMIL HCL 240 MG TABLET.SA PO SCH (10:41)
[2019-06-02] MEDS: NORMAL SALINE 1000 ML 1,000 ML IV PRN ×2 (12:51→23:20)
--- NOTE | 2019-06-02 13:17 | PDOC PROGRESS REPORT ---
Subjective Progress Note for:: 06/02/19 Subjective:: Patient states that she has significant pain in b/l knees. States that she has some back pain but is unable to walk due to bad knee pains. Patient Reason For Visit: RHABDO FTT UTI Physical Exam Vital Signs: Temp Pulse Resp BP Pulse Ox 98.5 F 96 15 104/57 L 96 06/02/19 12:18 06/02/19 12:18 06/02/19 12:18 06/02/19 12:18 06/02/19 12:18 Intake & Output 06/01/19 06/02/19 06/03/19 06:59 06:59 06:59 Intake Total 2049 4170 Output Total 1699 Balance 2049 2470 Weight 60 kg 63 kg General appearance: PRESENT: no acute distress, cooperative Neck exam: ABSENT: JVD Respiratory exam: PRESENT: clear to auscultation stephany, unlabored. ABSENT: accessory muscle use, chest wall tenderness, retraction, tachypnea, wheezes Cardiovascular exam: PRESENT: +S1, +S2 GI/Abdominal exam: PRESENT: soft. ABSENT: normal bowel sounds, rebound, rigid, tenderness Rectal exam: PRESENT: normal rectal tone. ABSENT: decreased rectal tone Extremities exam: PRESENT: joint swelling - Effusion and significant tenderness in bilateral knees Neurological exam: PRESENT: alert, awake, oriented to person, oriented to place. ABSENT: oriented to time, oriented to situation Results Laboratory Results: 06/02/19 06:22 06/02/19 06:22 06/01/19 06/02/19 06/02/19 04:50 06:22 06:22 WBC 13.9 H RBC 3.47 L Hgb 9.8 L Hct 29.6 L MCV 85 MCH 28.3 MCHC 33.2 RDW 14.0 Plt Count 319 Seg Neutrophils % 80.5 H Sodium 137.2 Potassium 4.0 Chloride 105 Carbon Dioxide 23 Anion Gap 9 BUN 22 H Creatinine 0.69 Est GFR ( Amer) > 60 Glucose 94 Uric Acid 3.9 Calcium 8.6 05/31/19 23:50 Catheterized Urine Urine Culture - Final Escherichia Coli 05/31/19 05/31/19 06/02/19 21:00 21:00 06:22 Creatine Kinase 1388 H 479 H Troponin I 0.028 Impressions: Chest X-Ray 05/31/19 21:07 IMPRESSION: No acute disease. copyright 2010 [employer]- All Rights Reserved Hip X-Ray 05/31/19 21:07 IMPRESSION: No acute displaced fracture of the left hip. Osteoarthritis copyright 2010 [employer]- All Rights Reserved Knee X-Ray 05/31/19 21:07 IMPRESSION: No acute bony injury to the knee. Small to moderate joint effusion copyright 2010 [employer]- All Rights Reserved Shoulder X-Ray 05/31/19 21:07 IMPRESSION: 1. No acute findings. Assessment and Plan - Diagnosis (1) Rhabdomyolysis Qualifiers: Rhabdomyolysis type: traumatic Encounter type: initial encounter Qualified Code(s): T79.6XXA - Traumatic ischemia of muscle, initial encounter Is this a current diagnosis for this admission?: Yes Plan: Likely secondary to prolonged immobilization on the floor from fall. CK down to 400s today following IV fluids. (2) Bilateral knee effusions Is this a current diagnosis for this admission?: Yes Plan: Patient has history of pseudogout with chondrocalcinosis noted on right knee x- ray I will try to see if ambulatory dysfunction improved once her significant knee pains are better controlled. Orthopedics consulted for diagnostic and therapeutic arthrocentesis and need for possible intra-articular steroid injection (3) Ambulatory dysfunction Is this a current diagnosis for this admission?: Yes Plan: Secondary to generalized muscle weakness as well as bilateral knee pain and effusion Will need physical therapy while addressing knee problems. PT recommending SNF. service planner made aware for placement. (4) Failure to thrive Qualifiers: Failure to thrive age range: in adult Qualified Code(s): R62.7 - Adult failure to thrive Is this a current diagnosis for this admission?: Yes Plan: Patient seems to have some cognitive impairment as well on encounter. Patient was found in her house very poorly kept, dirty, seems to be a hoarder and covered in faeces. Discharge planning has been made aware of patient will need placement at SNF regardless. (5) Hypertension Qualifiers: Hypertension type: essential hypertension Qualified Code(s): I10 - Essential (primary) hypertension Is this a current diagnosis for this admission?: Yes Plan: Lisinopril and amlodipine (6) Urinary tract infection Qualifiers: Urinary tract infection type: site unspecified Hematuria presence: with hematuria Qualified Code(s): N39.0 - Urinary tract infection, site not specified; R31.9 - Hematuria, unspecified Is this a current diagnosis for this admission?: Yes Plan: Ceftriaxone day 2 of 3. Urine culture now growing pansensitive E. coli. - Time Time Spent with patient: 15-24 minutes
[2019-06-02] MEDS: LISINOPRIL 10 MG TABLET PO SCH (14:48)
--- NOTE | 2019-06-02 17:23 | PDOC CONSULTATION ---
Consultation Consult Date: 06/02/19 Provider Consulted: ED HODGES Consult reason:: Bilateral knee pain History of Present Illness Admission Date/PCP: 06/01/19 00:55 TYRONE FLORES MD Patient complains of: Bilateral knee pain History of Present Illness: OSMAN VALERIO is a 68 year old female who was made to the hospital with pain status post fall for unknown period of time developing rhabdomyolysis patient was seen and brought to the emergency room. Patient states she is been having right knee pain for quite some time and has history of previous injections that were done at our office. She states in the past 24 hours she is also noticed increasing pain and swelling in the left knee as well and has been unable to ambulate. Denies fever or chills. Pain 8/10. Past Medical History Cardiac Medical History: Reports: Hyperlipidema, Hypertension GI Medical History: Reports: Gastroesophageal Reflux Disease Psychiatric Medical History: Reports: Depression Denies: Dementia, Substance Abuse, Tobacco Dependency Past Surgical History Past Surgical History: Reports: Cholecystectomy, Orthopedic Surgery - left FA Fx Social History Lives with: Family Smoking Status: Never Smoker Electronic Cigarette use?: No Frequency of Alcohol Use: None Hx Recreational Drug Use: No Drugs: None Hx Prescription Drug Abuse: No - patient denies - Advance Directive Resuscitation Status: Full Code Family History Family History: Hypertension Parental Family History Reviewed: No Children Family History Reviewed: No Sibling(s) Family History Reviewed.: No Medication/Allergy Home Medications: Benzonatate 200 mg PO Q8HP PRN 06/01/19 Cetirizine HCl [Zyrtec 10 mg Tablet] 10 mg PO DAILY 06/01/19 Duloxetine HCl 60 mg PO Q12 06/01/19 Fluticasone Propionate [Flonase Nasal Exmore 50 Mcg/Exmore 16 gm] 1 spray NAREB BID 06/01/19 Gabapentin [Neurontin 400 mg Capsule] 400 mg PO Q12 06/01/19 Lisinopril [Prinivil 10 mg Tablet] 40 mg PO DAILY 06/01/19 Loperamide HCl [Imodium 2 mg Capsule] 2 mg PO BIDP PRN 06/01/19 Naproxen 500 mg PO DAILY 06/01/19 Tramadol HCl [Ultram 50 mg Tablet] 50 mg PO Q6HP PRN 06/01/19 Verapamil HCl [Calan Sr 240 mg Tablet.sa] 240 mg PO DAILY 06/01/19 Allergies/Adverse Reactions: No Known Allergies Allergy (Verified 01/28/16 13:17) Review of Systems Constitutional: ABSENT: chills, fever(s), headache(s), weight gain, weight loss Eyes: ABSENT: visual disturbances Ears: ABSENT: hearing changes Cardiovascular: ABSENT: chest pain, dyspnea on exertion, edema, orthropnea, palpitations Respiratory: ABSENT: cough, hemoptysis Gastrointestinal: ABSENT: abdominal pain, constipation, diarrhea, hematemesis, hematochezia, nausea, vomiting Genitourinary: ABSENT: dysuria, hematuria Musculoskeletal: PRESENT: as per HPI Integumentary: ABSENT: rash, wounds Neurological: ABSENT: abnormal gait, abnormal speech, confusion, dizziness, focal weakness, syncope Psychiatric: ABSENT: anxiety, depression, homidical ideation, suicidal ideation Endocrine: ABSENT: cold intolerance, heat intolerance, menstrual abnormalities, polydipsia, polyuria Hematologic/Lymphatic: ABSENT: easy bleeding, easy bruising, lymphadenopathy Physical Exam Vital Signs: Temp Pulse Resp BP Pulse Ox 98.5 F 96 15 104/57 L 96 06/02/19 12:18 06/02/19 12:18 06/02/19 12:18 06/02/19 12:18 06/02/19 12:18 Intake & Output 06/01/19 06/02/19 06/03/19 06:59 06:59 06:59 Intake Total 2049 4170 240 Output Total 1700 125 Balance 2049 2470 115 Weight 60 kg 63 kg Results Laboratory Results: 06/02/19 06:22 06/02/19 06:22 06/02/19 06/02/19 06:22 06:22 WBC 13.9 H RBC 3.47 L Hgb 9.8 L Hct 29.6 L MCV 85 MCH 28.3 MCHC 33.2 RDW 14.0 Plt Count 319 Seg Neutrophils % 80.5 H Sodium 137.2 Potassium 4.0 Chloride 105 Carbon Dioxide 23 Anion Gap 9 BUN 22 H Creatinine 0.69 Est GFR ( Amer) > 60 Glucose 94 Calcium 8.6 05/31/19 23:50 Catheterized Urine Urine Culture - Final Escherichia Coli 05/31/19 05/31/19 06/02/19 21:00 21:00 06:22 Creatine Kinase 1388 H 479 H Troponin I 0.028 Impressions: Chest X-Ray 05/31/19 21:07 IMPRESSION: No acute disease. copyright 2010 [employer]- All Rights Reserved Hip X-Ray 05/31/19 21:07 IMPRESSION: No acute displaced fracture of the left hip. Osteoarthritis copyright 2010 [employer]- All Rights Reserved Knee X-Ray 05/31/19 21:07 IMPRESSION: No acute bony injury to the knee. Small to moderate joint effusion copyright 2010 [employer]- All Rights Reserved Shoulder X-Ray 05/31/19 21:07 IMPRESSION: 1. No acute findings. Status: Image reviewed by il - Radiographs of the right knee have been reviewed which demonstrate mildmoderate effusion with chondrocalcinosis. Assessment & Plan - Diagnosis (1) Bilateral knee effusions Is this a current diagnosis for this admission?: Yes Plan: Patient has radiographic evidence of chondrocalcinosis which likely matches patient's clinical presentation I feel septic arthritis is low on the differential diagnosis but given her leukocytosis and bilateral effusions we will proceed with right knee aspiration. Depending on knee aspiration results will discuss treatment options including possible bilateral intra-articular injections.
--- NOTE | 2019-06-02 17:31 | Progress Note ---
Provider Note Provider Note: Procedure note: Pre-procedure diagnosis: Right knee effusion Post procedure diagnosis: Same Procedure performed: Right knee arthrocentesis Procedure in detail: Right knee was prepped with alcohol. Under sterile technique 18-gauge needle was inserted via superolateral patellar approach. 20 cc of yellow fluid was successfully aspirated no purulence was appreciated. Patient tolerated procedure well. Fluid was sent for cell count with differential, culture and sensitivity, crystals
[2019-06-02 17:46] LABS: CALCIUM PYROPHOSPHATE CRYSTALS NONE OBSERVED; MONOSODIUM URATE CRYSTALS INTRACELLULAR; OTHER CRYSTALS NONE OBSERVED
[2019-06-02 18:42] LABS: FLUID APPEARANCE CLOUDY; FLUID COLOR LIGHT YELLOW; FLUID SOURCE KNEE; FLUID TYPE SYNOVIAL
[2019-06-02 18:43] LABS: FLUID VISCOSITY MODERATELY VISCOUS
[2019-06-02] MEDS: CEFTRIAXONE 1 GM/D5W RTU 1 GM/50 ML RTUPB IV SCH (21:38)
[2019-06-03] MEDS: TRAMADOL HCL 50 MG TABLET PO PRN (05:22)
[2019-06-03] MEDS: HEPARIN SOD (PORCINE) 5,000 UNIT/ML 1 ML VIAL SUBCUT SCH ×3 (05:22→21:59)
[2019-06-03 05:31] LABS: ABSOLUTE EOSINOPHILS # (AUTO) 0.1 10^3/uL (0.0-0.6); ABSOLUTE LYMPHOCYTES (AUTO) 1.3 10^3/uL (0.5-4.7); ABSOLUTE MONOCYTES (AUTO) 1.2 10^3/uL (0.1-1.4); ABSOLUTE NEUT (AUTO) 9.6 10^3/uL (1.7-8.2); BASOPHILS % (AUTO) 0.3 % (0-2); EOSINOPHILS % (AUTO) 0.9 % (0-6); HEMOGLOBIN 9.6 g/dL (12.0-15.5); LYMPHOCYTES % (AUTO) 10.7 % (13-45); MEAN CORPUSCULAR HEMOGLOBIN 28.1 pg (27.0-33.4); MEAN CORPUSCULAR HGB CONC 33.2 g/dL (32.0-36.0); MEAN CORPUSCULAR VOLUME 85 fl (80-97); MONOCYTES % (AUTO) 9.5 % (3-13); PLATELET COUNT 332 10^3/uL (150-450); RED BLOOD COUNT 3.42 10^6/uL (3.72-5.28); RED CELL DISTRIBUTION WIDTH 13.8 % (11.5-14.0); SEGMENTED NEUTROPHILS % (AUTO) 78.6 % (42-78); TOTAL CELLS COUNTED % (AUTO) 100 %; WHITE BLOOD COUNT 12.2 10^3/uL (4.0-10.5)
[2019-06-03 06:02] LABS: ANION GAP 9 (5-19); BLOOD UREA NITROGEN 20 mg/dL (7-20); CALCIUM 8.4 mg/dL (8.4-10.2); CARBON DIOXIDE 25 mmol/L (22-30); CHLORIDE 102 mmol/L (98-107); CREATINE KINASE 172 U/L (30-135); GLUCOSE 93 mg/dL (75-110); POTASSIUM 3.5 mmol/L (3.6-5.0)
--- NOTE | 2019-06-03 08:09 | PDOC PROGRESS REPORT ---
Subjective Progress Note for:: 06/03/19 Subjective:: Patient lying in bed comfortably. No issues overnight. States she continues to have pain in her right and left knee with motion and attempted ambulation. Denies fever chills or sweats. Reason For Visit: RHABDO FTT UTI Physical Exam Vital Signs: Temp Pulse Resp BP Pulse Ox 98.2 F 104 H 16 135/60 H 91 L 06/03/19 03:05 06/03/19 03:05 06/03/19 03:05 06/03/19 03:05 06/03/19 03:05 Intake & Output 06/02/19 06/03/19 06/04/19 06:59 06:59 06:59 Intake Total 4170 1610 Output Total 1700 1475 Balance 2470 135 Weight 63 kg 65 kg General appearance: PRESENT: no acute distress, well-developed, well-nourished Head exam: PRESENT: atraumatic, normocephalic Eye exam: PRESENT: conjunctiva pink, EOMI, PERRLA. ABSENT: scleral icterus Ear exam: PRESENT: normal external ear exam Mouth exam: PRESENT: moist, tongue midline Neck exam: PRESENT: full ROM. ABSENT: carotid bruit, JVD, lymphadenopathy, thyromegaly Cardiovascular exam: PRESENT: RRR. ABSENT: diastolic murmur, rubs, systolic murmur Pulses: PRESENT: normal dorsalis pedis pul, +2 pedal pulses bilateral Vascular exam: PRESENT: normal capillary refill GI/Abdominal exam: PRESENT: normal bowel sounds, soft. ABSENT: distended, gu arding, mass, organolmegaly, rebound, tenderness Rectal exam: PRESENT: deferred Musculoskeletal exam: PRESENT: other - Right knee: Mildmoderate effusion with no significant increased warmth compared to left knee. Pain with attempted range of motion. No calf tenderness. No erythema or swelling. No evidence of open wound. Intact plantarflexion/dorsiflexion no sensory deficits. Left knee: Mildmoderate effusion with no significant increased warmth compared to left knee. Pain with attempted range of motion. No calf tenderness. No erythema or swelling. No evidence of open wound. Intact plantarflexion/dorsiflexion no sensory deficits. Neurological exam: PRESENT: alert, awake, oriented to person, oriented to place, oriented to time, oriented to situation, CN II-XII grossly intact. ABSENT: motor sensory deficit Psychiatric exam: PRESENT: appropriate affect, normal mood. ABSENT: homicidal ideation, suicidal ideation Skin exam: PRESENT: dry, intact, warm. ABSENT: cyanosis, rash Results Laboratory Results: 06/03/19 04:25 06/03/19 04:25 06/02/19 06/02/19 06/03/19 17:10 17:10 04:25 WBC 12.2 H RBC 3.42 L Hgb 9.6 L Hct 29.0 L MCV 85 MCH 28.1 MCHC 33.2 RDW 13.8 Plt Count 332 Seg Neutrophils % 78.6 H Sodium Potassium Chloride Carbon Dioxide Anion Gap BUN Creatinine Est GFR ( Amer) Glucose Calcium Fluid Type SYNOVIAL SYNOVIAL Fluid Source KNEE Fluid Color LIGHT YELLOW Fluid Appearance CLOUDY Fluid Viscosity MODERATELY VISCOUS Fluid WBC 09553 Fluid RBC 633 06/03/19 04:25 WBC RBC Hgb Hct MCV MCH MCHC RDW Plt Count Seg Neutrophils % Sodium 135.9 L Potassium 3.5 L Chloride 102 Carbon Dioxide 25 Anion Gap 9 BUN 20 Creatinine 0.60 Est GFR ( Amer) > 60 Glucose 93 Calcium 8.4 Fluid Type Fluid Source Fluid Color Fluid Appearance Fluid Viscosity Fluid WBC Fluid RBC 05/31/19 23:50 Catheterized Urine Urine Culture - Final Escherichia Coli 05/31/19 05/31/19 06/02/19 21:00 21:00 06:22 Creatine Kinase 1388 H 479 H Troponin I 0.028 06/03/19 04:25 Creatine Kinase 172 H Troponin I Impressions: Chest X-Ray 05/31/19 21:07 IMPRESSION: No acute disease. copyright 2010 [employer]- All Rights Reserved Hip X-Ray 05/31/19 21:07 IMPRESSION: No acute displaced fracture of the left hip. Osteoarthritis copyright 2010 [employer]- All Rights Reserved Knee X-Ray 05/31/19 21:07 IMPRESSION: No acute bony injury to the knee. Small to moderate joint effusion copyright 2010 [employer]- All Rights Reserved Shoulder X-Ray 05/31/19 21:07 IMPRESSION: 1. No acute findings. Assessment & Plan - Diagnosis (1) Bilateral knee effusions Is this a current diagnosis for this admission?: Yes Plan: Patient has evidence of bilateral knee effusions radiographs of the right knee demonstrate chondrocalcinosis with degenerative changes. Proceeded with aspiration of the right knee which demonstrated white blood cell count of 13,000 which is low risk for septic arthritis there is positive mono sodium crystals consistent with gout. Thus would recommend treatment of gout. Alternative option would include bilateral intra-articular corticosteroid injections but would recommend against injection until patient's leukocytosis is normalized. Also feel some of patient's current pain is likely secondary to rhabdomyolysis. Patient may follow-up as an outpatient for bilateral knee injections or may obtain the injections while in the hospital once leukocytosis resolved and knee cultures negative - Time Time Spent with patient: Less than 15 minutes
[2019-06-03] MEDS ORDERED: POTASSIUM CHLORIDE 10 MEQ TABLET.ER PO ONE (09:00)
[2019-06-03] MEDS: LISINOPRIL 10 MG TABLET PO SCH (09:24)
[2019-06-03] MEDS: CETIRIZINE 10 MG TABLET PO SCH (09:24)
[2019-06-03] MEDS: ACETAMINOPHEN 325 MG TABLET PO PRN (09:24)
[2019-06-03] MEDS: DULOXETINE HCL 30 MG CAPSULE.DR PO SCH ×2 (09:24→21:58)
[2019-06-03] MEDS: AMLODIPINE BESYLATE 5 MG TABLET PO SCH ×2 (09:24→21:58)
[2019-06-03] MEDS: GABAPENTIN 400 MG CAPSULE PO SCH ×2 (09:24→21:58)
[2019-06-03] MEDS: NORMAL SALINE 1000 ML 1,000 ML IV PRN ×2 (09:25→19:48)
--- NOTE | 2019-06-03 10:26 | RADIOLOGY REPORT (SQ) ---
EXAM DESCRIPTION: KNEE LEFT 2 VIEWS COMPLETED DATE/TIME: 06/03/2019 10:14 am REASON FOR STUDY: left knee pain COMPARISON: 05/12/2014. NUMBER OF VIEWS: Two views. TECHNIQUE: AP and lateral radiographic images acquired of the left knee. LIMITATIONS: None. FINDINGS: MINERALIZATION: Normal. BONES: No acute fracture or dislocation. No worrisome bone lesions. Small osteophytes. JOINT: No effusion. Chondrocalcinosis. OTHER: No other significant finding. IMPRESSION: DEGENERATIVE CHANGES. CHONDROCALCINOSIS. NO ACUTE FINDINGS. TECHNICAL DOCUMENTATION: JOB ID: [id number] [employer]- All Rights Reserved Reading location - IP/workstation name: [email or web address]
[2019-06-03] MEDS: VERAPAMIL HCL 240 MG TABLET.SA PO SCH (11:57)
[2019-06-03] MEDS: FLUTICASONE NASAL SPRAY 50 MCG/SPRY 120 SPRAY/16 GM NAREB SCH ×2 (11:57→18:22)
--- NOTE | 2019-06-03 17:01 | PDOC PROGRESS REPORT ---
Subjective Progress Note for:: 06/03/19 Subjective:: Patient still having some knee pain bilaterally. Patient had arthrocentesis done yesterday. Patient denies fever chills. Reason For Visit: RHABDO FTT UTI Physical Exam Vital Signs: Temp Pulse Resp BP Pulse Ox 98.4 F 102 H 20 137/68 H 95 06/03/19 11:28 06/03/19 14:00 06/03/19 11:28 06/03/19 11:28 06/03/19 11:28 Intake & Output 06/02/19 06/03/19 06/04/19 06:59 06:59 06:59 Intake Total 4170 1610 1400 Output Total 1700 1475 600 Balance 2470 135 800 Weight 63 kg 65 kg 65 kg General appearance: PRESENT: no acute distress, cooperative, disheveled Ear exam: PRESENT: other - Hard of hearing and seems to have some cognitive delays Neck exam: ABSENT: JVD Respiratory exam: PRESENT: clear to auscultation stephany, symmetrical, unlabored. ABSENT: tachypnea, wheezes Cardiovascular exam: PRESENT: RRR, +S1, +S2. ABSENT: tachycardia GI/Abdominal exam: PRESENT: normal bowel sounds, soft. ABSENT: rebound, rigid, tenderness Rectal exam: PRESENT: normal rectal tone Extremities exam: PRESENT: joint swelling - Bilateral knee swelling without erythema or significant warmth, tenderness - Tenderness in thighs, +1 edema. ABSENT: +2 edema Neurological exam: PRESENT: alert, awake Results Laboratory Results: 06/03/19 04:25 06/03/19 04:25 06/02/19 06/02/19 06/03/19 17:10 17:10 04:25 WBC 12.2 H RBC 3.42 L Hgb 9.6 L Hct 29.0 L MCV 85 MCH 28.1 MCHC 33.2 RDW 13.8 Plt Count 332 Seg Neutrophils % 78.6 H Sodium Potassium Chloride Carbon Dioxide Anion Gap BUN Creatinine Est GFR ( Amer) Glucose Calcium Fluid Type SYNOVIAL SYNOVIAL Fluid Source KNEE Fluid Color LIGHT YELLOW Fluid Appearance CLOUDY Fluid Viscosity MODERATELY VISCOUS Fluid WBC 11768 Fluid RBC 633 06/03/19 04:25 WBC RBC Hgb Hct MCV MCH MCHC RDW Plt Count Seg Neutrophils % Sodium 135.9 L Potassium 3.5 L Chloride 102 Carbon Dioxide 25 Anion Gap 9 BUN 20 Creatinine 0.60 Est GFR ( Amer) > 60 Glucose 93 Calcium 8.4 Fluid Type Fluid Source Fluid Color Fluid Appearance Fluid Viscosity Fluid WBC Fluid RBC 05/31/19 05/31/19 06/02/19 21:00 21:00 06:22 Creatine Kinase 1388 H 479 H Troponin I 0.028 06/03/19 04:25 Creatine Kinase 172 H Troponin I Impressions: Chest X-Ray 05/31/19 21:07 IMPRESSION: No acute disease. copyright 2010 [employer]- All Rights Reserved Hip X-Ray 05/31/19 21:07 IMPRESSION: No acute displaced fracture of the left hip. Osteoarthritis copyright 2010 [employer]- All Rights Reserved Shoulder X-Ray 05/31/19 21:07 IMPRESSION: 1. No acute findings. Knee X-Ray 06/03/19 00:00 IMPRESSION: DEGENERATIVE CHANGES. CHONDROCALCINOSIS. NO ACUTE FINDINGS. Assessment and Plan - Diagnosis (1) Rhabdomyolysis Qualifiers: Rhabdomyolysis type: traumatic Encounter type: initial encounter Qualified Code(s): T79.6XXA - Traumatic ischemia of muscle, initial encounter Is this a current diagnosis for this admission?: Yes Plan: Likely secondary to prolonged immobilization on the floor from fall. Resolved (2) Bilateral knee effusions Is this a current diagnosis for this admission?: Yes Plan: Patient has history of pseudogout with chondrocalcinosis noted on right knee x- ray I will try to see if ambulatory dysfunction improved once her significant knee pains are better controlled. Right knee arthrocentesis done by orthopedics yesterday. Fluid analysis showing 13,000 WBCs which makes septic arthritis unlikely and shows intracellular monosodium crystals suggestive of gout. However Gram stain is positive for gram-negative rods but only 1 colony raising possible question of septic joint or contamination. I have discussed this with orthopedics who holds very low suspicion for septic arthritis raising potential of contamination of sample and would like to hold off on any plan for knee washout at this time. He recommends treating for gout while waiting on speciation from knee culture as well as blood cultures results. Of note patient is currently on ceftriaxone for treatment of UTI. I will go ahead and start patient on Motrin and colchicine load. Follow-up blood cultures and synovial fluid culture for speciation. (3) Ambulatory dysfunction Is this a current diagnosis for this admission?: Yes Plan: Secondary to generalized muscle weakness as well as bilateral knee pain and e ffusion Will need physical therapy while addressing knee problems. PT recommending SNF. interstate planner made aware for placement. (4) Failure to thrive Qualifiers: Failure to thrive age range: in adult Qualified Code(s): R62.7 - Adult failure to thrive Is this a current diagnosis for this admission?: Yes Plan: Patient seems to have some cognitive impairment as well on encounter. Patient was found in her house very poorly kept, dirty, seems to be a hoarder and [place]ove red in faeces. Discharge planning has been made aware of patient will need placement at SNF regardless. (5) Hypertension Qualifiers: Hypertension type: essential hypertension Qualified Code(s): I10 - Essential (primary) hypertension Is this a current diagnosis for this admission?: Yes Plan: Lisinopril and amlodipine (6) Urinary tract infection Qualifiers: Urinary tract infection type: site unspecified Hematuria presence: with hematuria Qualified Code(s): N39.0 - Urinary tract infection, site not specified; R31.9 - Hematuria, unspecified Is this a current diagnosis for this admission?: Yes Plan: Ceftriaxone day 07/14. Urine culture now growing pansensitive E. coli. - Time Time Spent with patient: 15-24 minutes
[2019-06-03] MEDS ORDERED: COLCHICINE 0.6 MG TABLET PO ONE (17:02)
[2019-06-03] MEDS: IBUPROFEN 400 MG TABLET PO SCH (18:21)
[2019-06-03] MEDS ORDERED: COLCHICINE 0.6 MG TABLET PO SCH (18:30)
[2019-06-03] MEDS: CEFTRIAXONE 1 GM/D5W RTU 1 GM/50 ML RTUPB IV SCH (21:59)
[2019-06-04 05:02] LABS: ABSOLUTE EOSINOPHILS # (AUTO) 0.2 10^3/uL (0.0-0.6); ABSOLUTE LYMPHOCYTES (AUTO) 1.4 10^3/uL (0.5-4.7); ABSOLUTE MONOCYTES (AUTO) 1.1 10^3/uL (0.1-1.4); ABSOLUTE NEUT (AUTO) 6.9 10^3/uL (1.7-8.2); BASOPHILS % (AUTO) 0.3 % (0-2); EOSINOPHILS % (AUTO) 2.1 % (0-6); HEMATOCRIT 30.8 % (36.0-47.0); HEMOGLOBIN 10.4 g/dL (12.0-15.5); LYMPHOCYTES % (AUTO) 14.5 % (13-45); MEAN CORPUSCULAR HEMOGLOBIN 28.7 pg (27.0-33.4); MEAN CORPUSCULAR HGB CONC 33.8 g/dL (32.0-36.0); MEAN CORPUSCULAR VOLUME 85 fl (80-97); MONOCYTES % (AUTO) 11.5 % (3-13); PLATELET COUNT 386 10^3/uL (150-450); RED BLOOD COUNT 3.64 10^6/uL (3.72-5.28); SEGMENTED NEUTROPHILS % (AUTO) 71.6 % (42-78); TOTAL CELLS COUNTED % (AUTO) 100 %; WHITE BLOOD COUNT 9.6 10^3/uL (4.0-10.5)
[2019-06-04 05:17] LABS: ANION GAP 6 (5-19); BLOOD UREA NITROGEN 13 mg/dL (7-20); CALCIUM 8.4 mg/dL (8.4-10.2); CARBON DIOXIDE 29 mmol/L (22-30); CHLORIDE 101 mmol/L (98-107); GLUCOSE 78 mg/dL (75-110); POTASSIUM 3.4 mmol/L (3.6-5.0)
[2019-06-04] MEDS: NORMAL SALINE 1000 ML 1,000 ML IV PRN ×2 (06:20→16:35)
[2019-06-04] MEDS: HEPARIN SOD (PORCINE) 5,000 UNIT/ML 1 ML VIAL SUBCUT SCH ×3 (06:21→21:55)
[2019-06-04] MEDS: DULOXETINE HCL 30 MG CAPSULE.DR PO SCH ×2 (10:30→21:54)
[2019-06-04] MEDS: CETIRIZINE 10 MG TABLET PO SCH (10:30)
[2019-06-04] MEDS: AMLODIPINE BESYLATE 5 MG TABLET PO SCH ×2 (10:30→22:57)
[2019-06-04] MEDS: LISINOPRIL 10 MG TABLET PO SCH (10:30)
[2019-06-04] MEDS: GABAPENTIN 400 MG CAPSULE PO SCH ×2 (10:30→21:55)
[2019-06-04] MEDS: FLUTICASONE NASAL SPRAY 50 MCG/SPRY 120 SPRAY/16 GM NAREB SCH ×2 (10:31→16:38)
[2019-06-04] MEDS: VERAPAMIL HCL 240 MG TABLET.SA PO SCH (10:31)
[2019-06-04] MEDS: COLCHICINE 0.6 MG TABLET PO SCH (10:31)
[2019-06-04] MEDS: IBUPROFEN 400 MG TABLET PO SCH ×2 (10:32→16:39)
[2019-06-04] MEDS ORDERED: POTASSIUM CHLORIDE 10 MEQ TABLET.ER PO ONE (13:57)
--- NOTE | 2019-06-04 14:02 | PDOC PROGRESS REPORT ---
Subjective Progress Note for:: 06/04/19 Subjective:: Patient was seen and examined at bedside. She is awake and alert. She still having pain in her knees. She is tolerating diet. She is afebrile. White count is normal. Reason For Visit: RHABDO FTT UTI Physical Exam Vital Signs: Temp Pulse Resp BP Pulse Ox 98.0 F 109 H 18 142/69 H 96 06/04/19 12:35 06/04/19 12:35 06/04/19 12:35 06/04/19 12:35 06/04/19 12:35 Intake & Output 06/03/19 06/04/19 06/05/19 06:59 06:59 06:59 Intake Total 1610 3775 Output Total 1475 2900 Balance 135 875 Weight 143 lb 4.807 oz 142 lb 6.698 oz Exam: Patient is no acute distress Alert oriented to time place person No anxiety or depression Head: atraumatic normocephalic Pupils: are equal reactive Neck: is supple and trachea is central no lymphadenopathy No pharyngeal erythema or exudates Heart: Regular rate and rhythm, no peripheral edema Lungs: clear to auscul, no respiratory distress Abdomen: nontender nondistended Neurological exam: unremarkable Musculoskeletal: Mild bilateral knee joint effusion No suicidal or homicidal ideation Results Laboratory Results: 06/04/19 04:39 06/04/19 04:39 06/03/19 06/04/19 06/04/19 15:58 04:39 04:39 WBC 9.6 RBC 3.64 L Hgb 10.4 L Hct 30.8 L MCV 85 MCH 28.7 MCHC 33.8 RDW 14.0 Plt Count 386 Seg Neutrophils % 71.6 Sodium 135.5 L Potassium 3.4 L Chloride 101 Carbon Dioxide 29 Anion Gap 6 BUN 13 Creatinine 0.53 Est GFR ( Amer) > 60 Glucose 78 Calcium 8.4 C-Reactive Protein 231.4 H 06/02/19 17:10 Knee Fluid - Right Gram Stain - Final 05/31/19 05/31/19 06/02/19 21:00 21:00 06:22 Creatine Kinase 1388 H 479 H Troponin I 0.028 06/03/19 04:25 Creatine Kinase 172 H Troponin I Impressions: Chest X-Ray 05/31/19 21:07 IMPRESSION: No acute disease. copyright 2011 [employer]- All Rights Reserved Hip X-Ray 05/31/19 21:07 IMPRESSION: No acute displaced fracture of the left hip. Osteoarthritis copyright 2010 [employer]- All Rights Reserved Shoulder X-Ray 05/31/19 21:07 IMPRESSION: 1. No acute findings. Knee X-Ray 06/03/19 00:00 IMPRESSION: DEGENERATIVE CHANGES. CHONDROCALCINOSIS. NO ACUTE FINDINGS. Assessment and Plan - Diagnosis (1) Ambulatory dysfunction Is this a current diagnosis for this admission?: Yes Plan: Secondary to generalized muscle weakness as well as bilateral knee pain and effusion PT recommending SNF. (2) Bilateral knee effusions Is this a current diagnosis for this admission?: Yes Plan: Patient has history of pseudogout with chondrocalcinosis noted on right knee x- ray Right knee arthrocentesis done by orthopedics yesterday. Fluid analysis showing 13,000 WBCs which makes septic arthritis unlikely and shows intracellular monosodium crystals suggestive of gout. Continue Motrin and colchicine. (3) Failure to thrive Qualifiers: Failure to thrive age range: in adult Qualified Code(s): R62.7 - Adult failure to thrive Is this a current diagnosis for this admission?: Yes Plan: Patient seems to have some cognitive impairment as well on encounter. Patient was found in her house very poorly kept, dirty, seems to be a hoarder and covered in faeces. Plan to discharge to SNF. (4) Hypertension Qualifiers: Hypertension type: essential hypertension Qualified Code(s): I10 - Essential (primary) hypertension Is this a current diagnosis for this admission?: Yes Plan: Lisinopril and amlodipine (5) Rhabdomyolysis Qualifiers: Rhabdomyolysis type: traumatic Encounter type: initial encounter Qualified Code(s): T79.6XXA - Traumatic ischemia of muscle, initial encounter Is this a current diagnosis for this admission?: Yes Plan: Likely secondary to prolonged immobilization on the floor from fall. Resolved (6) Urinary tract infection Qualifiers: Urinary tract infection type: site unspecified Hematuria presence: with hematuria Qualified Code(s): N39.0 - Urinary tract infection, site not specified; R31.9 - Hematuria, unspecified Is this a current diagnosis for this admission?: Yes Plan: Continue ceftriaxone. Urine culture now growing pansensitive E. coli.
[2019-06-04] MEDS: CEFTRIAXONE 1 GM/D5W RTU 1 GM/50 ML RTUPB IV SCH (21:54)
[2019-06-05] MEDS: NORMAL SALINE 1000 ML 1,000 ML IV PRN ×2 (03:05→16:45)
[2019-06-05 03:22] LABS: C DIFFICILE GDH NEGATIVE (NEGATIVE)
[2019-06-05] MEDS: HEPARIN SOD (PORCINE) 5,000 UNIT/ML 1 ML VIAL SUBCUT SCH ×3 (05:39→22:24)
[2019-06-05] MEDS: IBUPROFEN 400 MG TABLET PO SCH ×2 (09:25→19:36)
[2019-06-05] MEDS: COLCHICINE 0.6 MG TABLET PO SCH (09:25)
[2019-06-05] MEDS: LISINOPRIL 10 MG TABLET PO SCH (09:25)
[2019-06-05] MEDS: CETIRIZINE 10 MG TABLET PO SCH (09:25)
[2019-06-05] MEDS: GABAPENTIN 400 MG CAPSULE PO SCH ×2 (09:26→22:24)
[2019-06-05] MEDS: DULOXETINE HCL 30 MG CAPSULE.DR PO SCH ×2 (09:26→22:25)
[2019-06-05] MEDS: VERAPAMIL HCL 240 MG TABLET.SA PO SCH (09:26)
[2019-06-05] MEDS: FLUTICASONE NASAL SPRAY 50 MCG/SPRY 120 SPRAY/16 GM NAREB SCH ×2 (09:26→19:37)
[2019-06-05] MEDS: AMLODIPINE BESYLATE 5 MG TABLET PO SCH ×2 (09:26→22:24)
--- NOTE | 2019-06-05 16:20 | PDOC PROGRESS REPORT ---
Subjective Progress Note for:: 06/05/19 Subjective:: Patient was seen and examined at bedside. She is awake and alert. She still having pain in her knees. The nurse told me that patient is not eating well. Reason For Visit: RHABDO FTT UTI Physical Exam Vital Signs: Temp Pulse Resp BP Pulse Ox 98.6 F 102 H 16 128/56 H 94 06/05/19 13:14 06/05/19 13:14 06/05/19 13:14 06/05/19 13:14 06/05/19 13:14 Intake & Output 06/04/19 06/05/19 06/06/19 06:59 06:59 06:59 Intake Total 3775 2410 Output Total 2900 1600 Balance 875 810 Weight 142 lb 6.698 oz 142 lb 6.698 oz Exam: Patient is no acute distress Alert oriented to time place person No anxiety or depression Head: atraumatic normocephalic Pupils: are equal reactive Neck: is supple and trachea is central no lymphadenopathy No pharyngeal erythema or exudates Heart: Regular rate and rhythm, no peripheral edema Lungs: clear to auscul, no respiratory distress Abdomen: nontender nondistended Neurological exam: unremarkable Musculoskeletal: Mild bilateral knee joint effusion No suicidal or homicidal ideation Results Laboratory Results: 06/04/19 04:39 06/04/19 04:39 06/02/19 17:10 Knee Fluid - Right Gram Stain - Final 05/31/19 05/31/19 06/02/19 21:00 21:00 06:22 Creatine Kinase 1388 H 479 H Troponin I 0.028 06/03/19 04:25 Creatine Kinase 172 H Troponin I Impressions: Chest X-Ray 05/31/19 21:07 IMPRESSION: No acute disease. copyright 2010 [employer]- All Rights Reserved Hip X-Ray 05/31/19 21:07 IMPRESSION: No acute displaced fracture of the left hip. Osteoarthritis copyright 2010 [employer]- All Rights Reserved Shoulder X-Ray 05/31/19 21:07 IMPRESSION: 1. No acute findings. Knee X-Ray 06/03/19 00:00 IMPRESSION: DEGENERATIVE CHANGES. CHONDROCALCINOSIS. NO ACUTE FINDINGS. Assessment and Plan - Diagnosis (1) Ambulatory dysfunction Is this a current diagnosis for this admission?: Yes Plan: Secondary to generalized muscle weakness as well as bilateral knee pain and effusion PT recommending SNF. (2) Bilateral knee effusions Is this a current diagnosis for this admission?: Yes Plan: Patient has history of pseudogout with chondrocalcinosis noted on right knee x- ray Right knee arthrocentesis done by orthopedics yesterday. Fluid analysis showing 13,000 WBCs which makes septic arthritis unlikely and shows intracellular monosodium crystals suggestive of gout. Continue Motrin and colchicine. (3) Failure to thrive Qualifiers: Failure to thrive age range: in adult Qualified Code(s): R62.7 - Adult failure to thrive Is this a current diagnosis for this admission?: Yes Plan: Patient seems to have some cognitive impairment as well on encounter. Patient was found in her house very poorly kept, dirty, seems to be a hoarder and covered in faeces. Start Marinol. She seems to be depressed. We will start mirtazapine. Plan to discharge to SNF. (4) Hypertension Qualifiers: Hypertension type: essential hypertension Qualified Code(s): I10 - Essential (primary) hypertension Is this a current diagnosis for this admission?: Yes Plan: Lisinopril and amlodipine (5) Rhabdomyolysis Qualifiers: Rhabdomyolysis type: traumatic Encounter type: initial encounter Qualified Code(s): T79.6XXA - Traumatic ischemia of muscle, initial encounter Is this a current diagnosis for this admission?: Yes Plan: Likely secondary to prolonged immobilization on the floor from fall. Resolved (6) Urinary tract infection Qualifiers: Urinary tract infection type: site unspecified Hematuria presence: with hematuria Qualified Code(s): N39.0 - Urinary tract infection, site not specified; R31.9 - Hematuria, unspecified Is this a current diagnosis for this admission?: Yes Plan: Continue ceftriaxone. Urine culture now growing pansensitive E. coli.
[2019-06-05 17:48] LABS: ANION GAP 11 (5-19); BLOOD UREA NITROGEN 13 mg/dL (7-20); CALCIUM 8.6 mg/dL (8.4-10.2); CARBON DIOXIDE 30 mmol/L (22-30); CHLORIDE 96 mmol/L (98-107); GLUCOSE 89 mg/dL (75-110); POTASSIUM 3.1 mmol/L (3.6-5.0)
[2019-06-05] MEDS: DRONABINOL 2.5 MG CAPSULE PO SCH (19:36)
[2019-06-05] MEDS: CEPHALEXIN 500 MG CAPSULE PO SCH (19:38)
[2019-06-05] MEDS: MIRTAZAPINE 15 MG TABLET PO SCH (22:25)
[2019-06-06] MEDS: CEPHALEXIN 500 MG CAPSULE PO SCH ×5 (01:00→23:15)
[2019-06-06] MEDS: NORMAL SALINE 1000 ML 1,000 ML IV PRN ×2 (05:27→16:21)
[2019-06-06] MEDS: HEPARIN SOD (PORCINE) 5,000 UNIT/ML 1 ML VIAL SUBCUT SCH ×3 (05:28→22:49)
[2019-06-06] MEDS ORDERED: POTASSIUM CHLORIDE 10 MEQ TABLET.ER PO ONE ×2 (09:04→10:19)
[2019-06-06] MEDS ORDERED: POTASSIUM CHLORIDE 10 MEQ TABLET.ER PO SCH (10:00)
[2019-06-06] MEDS: AMLODIPINE BESYLATE 5 MG TABLET PO SCH ×2 (10:13→22:49)
[2019-06-06] MEDS: GABAPENTIN 400 MG CAPSULE PO SCH ×2 (10:13→22:49)
[2019-06-06] MEDS: DULOXETINE HCL 30 MG CAPSULE.DR PO SCH ×2 (10:13→22:49)
[2019-06-06] MEDS: CETIRIZINE 10 MG TABLET PO SCH (10:13)
[2019-06-06] MEDS: DRONABINOL 2.5 MG CAPSULE PO SCH ×3 (10:14→17:00)
[2019-06-06] MEDS: VERAPAMIL HCL 240 MG TABLET.SA PO SCH (10:14)
[2019-06-06] MEDS: IBUPROFEN 400 MG TABLET PO SCH ×2 (10:14→17:00)
[2019-06-06] MEDS: FLUTICASONE NASAL SPRAY 50 MCG/SPRY 120 SPRAY/16 GM NAREB SCH ×2 (10:15→17:00)
[2019-06-06] MEDS: COLCHICINE 0.6 MG TABLET PO SCH (10:15)
[2019-06-06] MEDS: LISINOPRIL 10 MG TABLET PO SCH (10:15)
--- NOTE | 2019-06-06 12:19 | PDOC PROGRESS REPORT ---
Subjective Progress Note for:: 06/06/19 Subjective:: 06/04/2019: Patient was seen and examined at bedside. She is awake and alert. She still having pain in her knees. She is tolerating diet. She is afebrile. White count is normal. 06/05/2019: Patient was seen and examined at bedside. She is awake and alert. She still having pain in her knees. The nurse told me that patient is not eating well. 06/06/2019: Patient was seen and examined at bedside. She is awake and alert. Still having poor appetite. Still with low potassium. Reason For Visit: RHABDO FTT UTI Physical Exam Vital Signs: Temp Pulse Resp BP Pulse Ox 98.8 F 86 18 147/58 H 96 06/06/19 00:00 06/06/19 02:00 06/06/19 00:00 06/06/19 00:00 06/06/19 00:00 Intake & Output 06/05/19 06/06/19 06/07/19 06:59 06:59 06:59 Intake Total 2410 2060 Output Total 1600 Balance 810 2060 Weight 142 lb 6.698 oz 142 lb 6.698 oz Exam: Patient is no acute distress Alert oriented to time place person No anxiety or depression Head: atraumatic normocephalic Pupils: are equal reactive Neck: is supple and trachea is central no lymphadenopathy No pharyngeal erythema or exudates Heart: Regular rate and rhythm, no peripheral edema Lungs: clear to auscul, no respiratory distress Abdomen: nontender nondistended Neurological exam: unremarkable Musculoskeletal: Mild bilateral knee joint effusion No suicidal or homicidal ideation Results Laboratory Results: 06/04/19 04:39 06/05/19 16:57 06/05/19 16:57 Sodium 136.7 L Potassium 3.1 L Chloride 96 L Carbon Dioxide 30 Anion Gap 11 BUN 13 Creatinine 0.50 L Est GFR ( Amer) > 60 Glucose 89 Calcium 8.6 06/02/19 17:10 Knee Fluid - Right Gram Stain - Final 06/02/19 17:10 Knee Fluid - Right Body Fluid Culture - Final NO AEROBIC OR ANAEROBIC ORGANISMS RECOVERED 05/31/19 05/31/19 06/02/19 21:00 21:00 06:22 Creatine Kinase 1388 H 479 H Troponin I 0.028 06/03/19 04:25 Creatine Kinase 172 H Troponin I Impressions: Chest X-Ray 05/31/19 21:07 IMPRESSION: No acute disease. copyright 2010 [employer]- All Rights Reserved Hip X-Ray 05/31/19 21:07 IMPRESSION: No acute displaced fracture of the left hip. Osteoarthritis copyright 2010 [employer]- All Rights Reserved Shoulder X-Ray 05/31/19 21:07 IMPRESSION: 1. No acute findings. Knee X-Ray 06/03/19 00:00 IMPRESSION: DEGENERATIVE CHANGES. CHONDROCALCINOSIS. NO ACUTE FINDINGS. Assessment and Plan - Diagnosis (1) Ambulatory dysfunction Is this a current diagnosis for this admission?: Yes Plan: Secondary to generalized muscle weakness as well as bilateral knee pain and effusion PT recommending SNF. (2) Bilateral knee effusions Is this a current diagnosis for this admission?: Yes Plan: Patient has history of pseudogout with chondrocalcinosis noted on right knee x-ray Right knee arthrocentesis done by orthopedics. Fluid analysis showing 13,000 WBCs which makes septic arthritis unlikely and shows intracellular monosodium crystals suggestive of gout. Continue Motrin and colchicine. (3) Failure to thrive Qualifiers: Failure to thrive age range: in adult Qualified Code(s): R62.7 - Adult fail ure to thrive Is this a current diagnosis for this admission?: Yes Plan: Patient seems to have some cognitive impairment as well on encounter. Patient was found in her house very poorly kept, dirty, seems to be a hoarder and covered in faeces. continue Marinol. She seems to be depressed. continue mirtazapine. Plan to discharge to SNF. (4) Hypertension Qualifiers: Hypertension type: essential hypertension Qualified Code(s): I10 - Essential (primary) hypertension Is this a current diagnosis for this admission?: Yes Plan: Lisinopril and amlodipine (5) Rhabdomyolysis Qualifiers: Rhabdomyolysis type: traumatic Encounter type: initial encounter Qualified Code(s): T79.6XXA - Traumatic ischemia of muscle, initial encounter Is this a current diagnosis for this admission?: Yes Plan: Likely secondary to prolonged immobilization on the floor from fall. Resolved (6) Urinary tract infection Qualifiers: Urinary tract infection type: site unspecified Hematuria presence: with hematuria Qualified Code(s): N39.0 - Urinary tract infection, site not specified; R31.9 - Hematuria, unspecified Is this a current diagnosis for this admission?: Yes Plan: Continue keflex. Urine culture now growing pansensitive E. coli.
[2019-06-06 14:41] LABS: ANION GAP 10 (5-19); BLOOD UREA NITROGEN 11 mg/dL (7-20); CALCIUM 8.3 mg/dL (8.4-10.2); CARBON DIOXIDE 31 mmol/L (22-30); CHLORIDE 98 mmol/L (98-107); GLUCOSE 96 mg/dL (75-110); POTASSIUM 3.4 mmol/L (3.6-5.0)
--- NOTE | 2019-06-06 15:41 | PSYCHOLOGICAL NOTE ---
Psych Note - Psych Note Date seen by psych provider: 06/06/19 Time seen by psych provider: 12:45 Psych Note: Reason For Consult: Depression Patient reports she came to [facility] because she was unable to walk. She is unsure what is wrong however thinks that it may be gout. She states she can even feel her legs in the hospital is going to be sending her to rehab. Patient asked clinician why she cannot engage in rehab here at the hospital. When patient is asked about her thoughts and emotions she deflects and reports she worries about her mom. She reports that she normally cares for her mom however her sister is currently taking care of their mom since she cannot. Patient reports that she knew the day would come that she have difficulty with mobility however did not think you would be so soon. Patient will not answer if she has a prior diagnosis of mental health. Patient is alert and orientated to person, place, time and circumstance. Mood and affect is flat. Patient denies suicidal and homicidal ideation. Delusions are absent and behaviors congruent with an intact reality based presentation ie organized and linear thought process. Eye contact is poor. Conversational speech is within normal rate, tone and prosody. Intellectual abilities appear to be within the average range. Attention and concentration are fair. Insight, judgment, impulse control are fair. Medication recommendations per [facility]'s contracted psychiatrist Dr. Nadeen PEÑA are as follows Please decrease home medication of Cymbalta to 60mg daily Please discontinue Remeron Impression\plan: Patient is cleared from acute psychiatric services. Patient engages appropriately with clinician however will not discuss her emotions in regards to anxiety or depression. Patient is very focused on her current medical situation and not being able to walk. She is concerned about her mother and not being there for her because she is being sent to inpatient physical rehab. Patient asked why she could not engage in physical rehab here at this hospital. Clinician explained that if she needs to be sent for rehab, the hospital staff will assist her to ensure she obtains all necessary medical treatment. Medication recommendations have been provided. Thank you for this consult. If any new concerns arise please reconsult. Dr. Griggs was consulted to care management of this patient; attending physicians in agreement with recommendations and disposition.
[2019-06-06] MEDS: MIRTAZAPINE 15 MG TABLET PO SCH (22:49)
[2019-06-07] MEDS: NORMAL SALINE 1000 ML 1,000 ML IV PRN ×3 (02:54→23:54)
[2019-06-07] MEDS: HEPARIN SOD (PORCINE) 5,000 UNIT/ML 1 ML VIAL SUBCUT SCH ×3 (05:17→22:32)
[2019-06-07] MEDS: CEPHALEXIN 500 MG CAPSULE PO SCH ×4 (05:17→23:08)
[2019-06-07] MEDS: DRONABINOL 2.5 MG CAPSULE PO SCH ×3 (09:46→17:20)
[2019-06-07] MEDS: GABAPENTIN 400 MG CAPSULE PO SCH ×2 (09:46→22:34)
[2019-06-07] MEDS: POTASSIUM CHLORIDE 10 MEQ TABLET.ER PO SCH (09:46)
[2019-06-07] MEDS: DULOXETINE HCL 30 MG CAPSULE.DR PO SCH ×2 (09:46→22:34)
[2019-06-07] MEDS: LISINOPRIL 10 MG TABLET PO SCH (09:47)
[2019-06-07] MEDS: AMLODIPINE BESYLATE 5 MG TABLET PO SCH ×2 (09:47→22:34)
[2019-06-07] MEDS: VERAPAMIL HCL 240 MG TABLET.SA PO SCH (09:47)
[2019-06-07] MEDS: CETIRIZINE 10 MG TABLET PO SCH (09:47)
[2019-06-07] MEDS: COLCHICINE 0.6 MG TABLET PO SCH (09:47)
[2019-06-07] MEDS: IBUPROFEN 400 MG TABLET PO SCH ×2 (09:47→17:20)
[2019-06-07] MEDS: FLUTICASONE NASAL SPRAY 50 MCG/SPRY 120 SPRAY/16 GM NAREB SCH ×2 (09:47→17:21)
[2019-06-07] MEDS ORDERED: MAGNESIUM SULFATE/D5W 1 GM/100 ML RTUPB IV ONE (11:39)
--- NOTE | 2019-06-07 11:43 | PDOC PROGRESS REPORT ---
Subjective Progress Note for:: 06/07/19 Subjective:: 06/04/2019: Patient was seen and examined at bedside. She is awake and alert. She still having pain in her knees. She is tolerating diet. She is afebrile. White count is normal. 06/05/2019: Patient was seen and examined at bedside. She is awake and alert. She still having pain in her knees. The nurse told me that patient is not eating well. 06/06/2019: Patient was seen and examined at bedside. She is awake and alert. Still having poor appetite. Still with low potassium. 06/07/2019: Patient was seen and examined at bedside. Is awake and alert. Still with poor appetite. Discussed with RN and dietitian today. Still with low potassium and low magnesium levels. Reason For Visit: RHABDO FTT UTI Physical Exam Vital Signs: Temp Pulse Resp BP Pulse Ox 98.4 F 94 16 134/65 H 96 06/07/19 08:02 06/07/19 08:02 06/07/19 08:02 06/07/19 08:02 06/07/19 08:02 Intake & Output 06/06/19 06/07/19 06/08/19 06:59 06:59 06:59 Intake Total 2059 2360 Output Total 1403 Balance 2059 957 Weight 142 lb 6.698 oz 143 lb 4.807 oz Exam: Patient is no acute distress Alert oriented to time place person No anxiety or depression Head: atraumatic normocephalic Pupils: are equal reactive Neck: is supple and trachea is central no lymphadenopathy No pharyngeal erythema or exudates Heart: Regular rate and rhythm, no peripheral edema Lungs: clear to auscul, no respiratory distress Abdomen: nontender nondistended Neurological exam: unremarkable Musculoskeletal: Mild bilateral knee joint effusion No suicidal or homicidal ideation Results Laboratory Results: 06/04/19 04:39 06/06/19 06/07/19 13:21 06:23 Sodium 138.8 Potassium 3.4 L Chloride 98 Carbon Dioxide 31 H Anion Gap 10 BUN 11 Creatinine 0.48 L Est GFR ( Amer) > 60 Glucose 96 Calcium 8.3 L Magnesium 1.4 L 06/02/19 17:10 Knee Fluid - Right Gram Stain - Final 06/02/19 17:10 Knee Fluid - Right Body Fluid Culture - Final NO AEROBIC OR ANAEROBIC ORGANISMS RECOVERED 05/31/19 05/31/19 06/02/19 21:00 21:00 06:22 Creatine Kinase 1388 H 479 H Troponin I 0.028 06/03/19 04:25 Creatine Kinase 172 H Troponin I Impressions: Chest X-Ray 05/31/19 21:07 IMPRESSION: No acute disease. copyright 2010 [employer]- All Rights Reserved Hip X-Ray 05/31/19 21:07 IMPRESSION: No acute displaced fracture of the left hip. Osteoarthritis copyright 2010 [employer]- All Rights Reserved Shoulder X-Ray 05/31/19 21:07 IMPRESSION: 1. No acute findings. Knee X-Ray 06/03/19 00:00 IMPRESSION: DEGENERATIVE CHANGES. CHONDROCALCINOSIS. NO ACUTE FINDINGS. Assessment and Plan - Diagnosis (1) Ambulatory dysfunction Is this a current diagnosis for this admission?: Yes Plan: Secondary to generalized muscle weakness as well as bilateral knee pain and effusion PT recommending SNF. (2) Bilateral knee effusions Is this a current diagnosis for this admission?: Yes Plan: Patient has history of pseudogout with chondrocalcinosis noted on right knee x- ray Right knee arthrocentesis done by orthopedics. Fluid analysis showing 13,000 WBCs which makes septic arthritis unlikely and shows intracellular monosodium crystals suggestive of gout. Continue Motrin and colchicine. (3) Failure to thrive Qualifiers: Failure to thrive age range: in adult Qualified Code(s): R62.7 - Adult failure to thrive Is this a current diagnosis for this admission?: Yes Plan: Patient seems to have some cognitive impairment as well on encounter. Patient was found in her house very poorly kept, dirty, seems to be a hoarder and covered in faeces. continue Marinol. She seems to be depressed. continue mirtazapine. Discussed with RN and dietitian. Continue supplements. Plan to discharge to SNF. (4) Hypertension Qualifiers: Hypertension type: essential hypertension Qualified Code(s): I10 - Essential (primary) hypertension Is this a current diagnosis for this admission?: Yes Plan: Lisinopril and amlodipine (5) Rhabdomyolysis Qualifiers: Rhabdomyolysis type: traumatic Encounter type: initial encounter Qualified Code(s): T79.6XXA - Traumatic ischemia of muscle, initial encounter Is this a current diagnosis for this admission?: Yes Plan: Likely secondary to prolonged immobilization on the floor from fall. Resolved (6) Urinary tract infection Qualifiers: Urinary tract infection type: site unspecified Hematuria presence: with hematuria Qualified Code(s): N39.0 - Urinary tract infection, site not specified; R31.9 - Hematuria, unspecified Is this a current diagnosis for this admission?: Yes Plan: Continue keflex. Urine culture now growing pansensitive E. coli.
[2019-06-07 11:48] LABS: ANION GAP 6 (5-19); BLOOD UREA NITROGEN 10 mg/dL (7-20); CALCIUM 8.5 mg/dL (8.4-10.2); CARBON DIOXIDE 33 mmol/L (22-30); CHLORIDE 102 mmol/L (98-107); GLUCOSE 81 mg/dL (75-110); POTASSIUM 3.4 mmol/L (3.6-5.0)
[2019-06-07] MEDS: MAGNESIUM OXIDE 400 MG TABLET PO SCH (17:20)
[2019-06-07] MEDS: MIRTAZAPINE 15 MG TABLET PO SCH (22:33)
[2019-06-08] MEDS: HEPARIN SOD (PORCINE) 5,000 UNIT/ML 1 ML VIAL SUBCUT SCH ×3 (06:44→22:42)
[2019-06-08] MEDS: CEPHALEXIN 500 MG CAPSULE PO SCH ×2 (06:44→11:11)
[2019-06-08 09:09] LABS: ANION GAP 8 (5-19); BLOOD UREA NITROGEN 10 mg/dL (7-20); CALCIUM 8.5 mg/dL (8.4-10.2); CARBON DIOXIDE 29 mmol/L (22-30); CHLORIDE 103 mmol/L (98-107); GLUCOSE 95 mg/dL (75-110); POTASSIUM 3.2 mmol/L (3.6-5.0)
[2019-06-08] MEDS: CETIRIZINE 10 MG TABLET PO SCH (11:05)
[2019-06-08] MEDS: VERAPAMIL HCL 240 MG TABLET.SA PO SCH (11:05)
[2019-06-08] MEDS: FLUTICASONE NASAL SPRAY 50 MCG/SPRY 120 SPRAY/16 GM NAREB SCH ×2 (11:06→17:53)
[2019-06-08] MEDS: DRONABINOL 2.5 MG CAPSULE PO SCH ×3 (11:06→18:00)
[2019-06-08] MEDS: MAGNESIUM OXIDE 400 MG TABLET PO SCH ×2 (11:06→18:00)
[2019-06-08] MEDS: GABAPENTIN 400 MG CAPSULE PO SCH ×2 (11:06→23:01)
[2019-06-08] MEDS: DULOXETINE HCL 30 MG CAPSULE.DR PO SCH ×2 (11:06→23:00)
[2019-06-08] MEDS: POTASSIUM CHLORIDE 10 MEQ TABLET.ER PO SCH ×2 (11:06→18:00)
[2019-06-08] MEDS: COLCHICINE 0.6 MG TABLET PO SCH (11:07)
[2019-06-08] MEDS: LISINOPRIL 10 MG TABLET PO SCH (11:07)
[2019-06-08] MEDS: MAGNESIUM SULFATE/D5W 1 GM/100 ML RTUPB IV SCH (11:07)
[2019-06-08] MEDS: IBUPROFEN 400 MG TABLET PO SCH ×2 (11:08→17:59)
[2019-06-08] MEDS: AMLODIPINE BESYLATE 5 MG TABLET PO SCH ×2 (11:10→23:01)
[2019-06-08] MEDS: NORMAL SALINE 1000 ML 1,000 ML IV PRN ×2 (11:12→20:17)
--- NOTE | 2019-06-08 11:22 | PDOC PROGRESS REPORT ---
Subjective Progress Note for:: 06/08/19 Subjective:: 06/04/2019: Patient was seen and examined at bedside. She is awake and alert. She still having pain in her knees. She is tolerating diet. She is afebrile. White count is normal. 06/05/2019: Patient was seen and examined at bedside. She is awake and alert. She still having pain in her knees. The nurse told me that patient is not eating well. 06/06/2019: Patient was seen and examined at bedside. She is awake and alert. Still having poor appetite. Still with low potassium. 06/07/2019: Patient was seen and examined at bedside. Is awake and alert. Still with poor appetite. Discussed with RN and dietitian today. Still with low potassium and low magnesium levels. 06/08/2019: Patient was seen and examined. He is awake and alert. She still has poor appetite but slightly better. She still with low potassium and magnesium levels. Is having diarrhea for at least for the past couple of days. Reason For Visit: RHABDO FTT UTI Physical Exam Vital Signs: Temp Pulse Resp BP Pulse Ox 98.5 F 96 16 137/58 H 98 06/08/19 07:41 06/08/19 07:41 06/08/19 07:41 06/08/19 07:41 06/08/19 07:41 Intake & Output 06/07/19 06/08/19 06/09/19 06:59 06:59 06:59 Intake Total 2360 2676 1000 Output Total 1403 600 Balance 957 2076 1000 Weight 143 lb 4.807 oz 143 lb 1.28 oz Exam: Patient is no acute distress Alert oriented to time place person No anxiety or depression Head: atraumatic normocephalic Pupils: are equal reactive Neck: is supple and trachea is central no lymphadenopathy No pharyngeal erythema or exudates Heart: Regular rate and rhythm, no peripheral edema Lungs: clear to auscul, no respiratory distress Abdomen: nontender nondistended Neurological exam: unremarkable Musculoskeletal: Mild bilateral knee joint effusion No suicidal or homicidal ideation Results Laboratory Results: 06/04/19 04:39 06/08/19 06:06 06/07/19 06/08/19 06/08/19 06:23 06:06 06:06 Sodium 140.5 140.0 Potassium 3.4 L 3.2 L Chloride 102 103 Carbon Dioxide 33 H 29 Anion Gap 6 8 BUN 10 10 Creatinine 0.60 0.54 Est GFR ( Amer) > 60 > 60 Glucose 81 95 Calcium 8.5 8.5 Magnesium 1.4 L 05/31/19 05/31/19 06/02/19 21:00 21:00 06:22 Creatine Kinase 1388 H 479 H Troponin I 0.028 06/03/19 04:25 Creatine Kinase 172 H Troponin I Impressions: Chest X-Ray 05/31/19 21:07 IMPRESSION: No acute disease. copyright 2010 [employer]- All Rights Reserved Hip X-Ray 05/31/19 21:07 IMPRESSION: No acute displaced fracture of the left hip. Osteoarthritis copyright 2010 [employer]- All Rights Reserved Shoulder X-Ray 05/31/19 21:07 IMPRESSION: 1. No acute findings. Knee X-Ray 06/03/19 00:00 IMPRESSION: DEGENERATIVE CHANGES. CHONDROCALCINOSIS. NO ACUTE FINDINGS. Assessment and Plan - Diagnosis (1) Ambulatory dysfunction Is this a current diagnosis for this admission?: Yes Plan: Secondary to generalized muscle weakness as well as bilateral knee pain and effusion PT recommending SNF. (2) Bilateral knee effusions Is this a current diagnosis for this admission?: Yes Plan: Patient has history of pseudogout with chondrocalcinosis noted on right knee x- ray Right knee arthrocentesis done by orthopedics. Fluid analysis showing 13,000 WBCs which makes septic arthritis unlikely and shows intracellular monosodium crystals suggestive of gout. Continue Motrin and colchicine. (3) Failure to thrive Qualifiers: Failure to thrive age range: in adult Qualified Code(s): R62.7 - Adult failure to thrive Is this a current diagnosis for this admission?: Yes Plan: Patient seems to have some cognitive impairment as well on encounter. Patient was found in her house very poorly kept, dirty, seems to be a hoarder and covered in faeces. continue Marinol. She seems to be depressed. continue mirtazapine. Discussed with RN and dietitian. Continue supplements. Plan to discharge to SNF. (4) Hypertension Qualifiers: Hypertension type: essential hypertension Qualified Code(s): I10 - Essential (primary) hypertension Is this a current diagnosis for this admission?: Yes Plan: Lisinopril and amlodipine (5) Rhabdomyolysis Qualifiers: Rhabdomyolysis type: traumatic Encounter type: initial encounter Qualified Code(s): T79.6XXA - Traumatic ischemia of muscle, initial encounter Is this a current diagnosis for this admission?: Yes Plan: Likely secondary to prolonged immobilization on the floor from fall. Resolved (6) Urinary tract infection Qualifiers: Urinary tract infection type: site unspecified Hematuria presence: with hematuria Qualified Code(s): N39.0 - Urinary tract infection, site not specified; R31.9 - Hematuria, unspecified Is this a current diagnosis for this admission?: Yes Plan: Continue keflex. Urine culture now growing pansensitive E. coli. (7) Hypomagnesemia Is this a current diagnosis for this admission?: Yes Plan: Replace and monitor. (8) Diarrhea Is this a current diagnosis for this admission?: Yes Plan: Continue IV fluids. Check C. difficile. (9) Hypokalemia Is this a current diagnosis for this admission?: Yes Plan: Potassium repletion, follow-up magnesium level
[2019-06-08 12:34] LABS: ANION GAP 9 (5-19); BLOOD UREA NITROGEN 8 mg/dL (7-20); CALCIUM 8.7 mg/dL (8.4-10.2); CARBON DIOXIDE 31 mmol/L (22-30); CHLORIDE 99 mmol/L (98-107); GLUCOSE 106 mg/dL (75-110)
[2019-06-08] MEDS: MAGNESIUM SULFATE 1 GM/D5W 100 ML IV SCH ×2 (12:48→16:17)
[2019-06-08] MEDS ORDERED: POTASSIUM CHLORIDE 20 MEQ/50 ML RTU IV ONE (14:00)
[2019-06-08] MEDS: ACETAMINOPHEN 325 MG TABLET PO PRN (20:17)
[2019-06-08] MEDS: MIRTAZAPINE 15 MG TABLET PO SCH (23:01)
[2019-06-09 05:02] LABS: C DIFFICILE GDH NEGATIVE (NEGATIVE)
[2019-06-09] MEDS: HEPARIN SOD (PORCINE) 5,000 UNIT/ML 1 ML VIAL SUBCUT SCH ×3 (05:06→22:24)
[2019-06-09] MEDS: DULOXETINE HCL 30 MG CAPSULE.DR PO SCH ×2 (10:59→22:23)
[2019-06-09] MEDS: POTASSIUM CHLORIDE 10 MEQ TABLET.ER PO SCH ×2 (11:00→17:55)
[2019-06-09] MEDS: MAGNESIUM OXIDE 400 MG TABLET PO SCH ×2 (11:00→17:56)
[2019-06-09] MEDS: AMLODIPINE BESYLATE 5 MG TABLET PO SCH ×2 (11:00→22:23)
[2019-06-09] MEDS: DRONABINOL 2.5 MG CAPSULE PO SCH ×3 (11:00→17:55)
[2019-06-09] MEDS: GABAPENTIN 400 MG CAPSULE PO SCH ×2 (11:00→22:23)
[2019-06-09] MEDS: FLUTICASONE NASAL SPRAY 50 MCG/SPRY 120 SPRAY/16 GM NAREB SCH ×2 (11:01→18:00)
[2019-06-09] MEDS: CETIRIZINE 10 MG TABLET PO SCH (11:01)
[2019-06-09] MEDS: COLCHICINE 0.6 MG TABLET PO SCH (11:01)
[2019-06-09] MEDS: VERAPAMIL HCL 240 MG TABLET.SA PO SCH (11:02)
[2019-06-09] MEDS: IBUPROFEN 400 MG TABLET PO SCH ×2 (11:02→17:56)
[2019-06-09] MEDS: MAGNESIUM SULFATE/D5W 1 GM/100 ML RTUPB IV SCH (11:07)
[2019-06-09] MEDS: NORMAL SALINE 1000 ML 1,000 ML IV PRN ×2 (11:10→20:24)
[2019-06-09] MEDS: LISINOPRIL 10 MG TABLET PO SCH (11:30)
--- NOTE | 2019-06-09 11:35 | PDOC PROGRESS REPORT ---
Subjective Progress Note for:: 06/09/19 Subjective:: 06/04/2019: Patient was seen and examined at bedside. She is awake and alert. She still having pain in her knees. She is tolerating diet. She is afebrile. White count is normal. 06/05/2019: Patient was seen and examined at bedside. She is awake and alert. She still having pain in her knees. The nurse told me that patient is not eating well. 06/06/2019: Patient was seen and examined at bedside. She is awake and alert. Still having poor appetite. Still with low potassium. 06/07/2019: Patient was seen and examined at bedside. Is awake and alert. Still with poor appetite. Discussed with RN and dietitian today. Still with low potassium and low magnesium levels. 06/08/2019: Patient was seen and examined. He is awake and alert. She still has poor appetite but slightly better. She still with low potassium and magnesium levels. Is having diarrhea for at least for the past couple of days. 06/09/2019: Patient seen and examined. Awake and alert. Appetite slightly better. She still complains of generalized pain. Reason For Visit: RHABDO FTT UTI Physical Exam Vital Signs: Temp Pulse Resp BP Pulse Ox 97.5 F 75 16 118/47 L 94 06/09/19 07:28 06/09/19 07:28 06/09/19 07:28 06/09/19 07:28 06/09/19 07:28 Intake & Output 06/08/19 06/09/19 06/10/19 06:59 06:59 06:59 Intake Total 7446 3629 1000 Output Total 600 Balance 2076 3629 1000 Weight 143 lb 1.28 oz 143 lb 1.28 oz Exam: Patient is no acute distress Alert oriented to time place person No anxiety or depression Head: atraumatic normocephalic Pupils: are equal reactive Neck: is supple and trachea is central no lymphadenopathy No pharyngeal erythema or exudates Heart: Regular rate and rhythm, no peripheral edema Lungs: clear to auscul, no respiratory distress Abdomen: nontender nondistended Neurological exam: unremarkable Musculoskeletal: Mild bilateral knee joint effusion No suicidal or homicidal ideation Results Laboratory Results: 06/04/19 04:39 06/08/19 11:54 06/08/19 11:54 Sodium 138.7 Potassium 3.0 L* Chloride 99 Carbon Dioxide 31 H Anion Gap 9 BUN 8 Creatinine 0.52 Est GFR ( Amer) > 60 Glucose 106 Calcium 8.7 Magnesium 1.6 06/03/19 16:42 Blood Blood Culture - Final NO GROWTH IN 5 DAYS 06/03/19 15:58 Blood Blood Culture - Final NO GROWTH IN 5 DAYS 05/31/19 05/31/19 06/02/19 21:00 21:00 06:22 Creatine Kinase 1388 H 479 H Troponin I 0.028 06/03/19 04:25 Creatine Kinase 172 H Troponin I Impressions: Chest X-Ray 05/31/19 21:07 IMPRESSION: No acute disease. copyright 2010 [employer]- All Rights Reserved Hip X-Ray 05/31/19 21:07 IMPRESSION: No acute displaced fracture of the left hip. Osteoarthritis copyright 2010 [employer]- All Rights Reserved Shoulder X-Ray 05/31/19 21:07 IMPRESSION: 1. No acute findings. Knee X-Ray 06/03/19 00:00 IMPRESSION: DEGENERATIVE CHANGES. CHONDROCALCINOSIS. NO ACUTE FINDINGS. Assessment and Plan - Diagnosis (1) Ambulatory dysfunction Is this a current diagnosis for this admission?: Yes Plan: Secondary to generalized muscle weakness as well as bilateral knee pain and effusion PT recommending SNF. (2) Bilateral knee effusions Is this a current diagnosis for this admission?: Yes Plan: Patient has history of pseudogout with chondrocalcinosis noted on right knee x- ray Right knee arthrocentesis done by orthopedics. Fluid analysis showing 13,000 WBCs which makes septic arthritis unlikely and shows intracellular monosodium crystals suggestive of gout. Continue Motrin and colchicine. (3) Failure to thrive Qualifiers: Failure to thrive age range: in adult Qualified Code(s): R62.7 - Adult failure to thrive Is this a current diagnosis for this admission?: Yes Plan: Patient seems to have some cognitive impairment as well on encounter. Patient was found in her house very poorly kept, dirty, seems to be a hoarder and covered in faeces. continue Marinol. She seems to be depressed. continue mirtazapine. Discussed with RN and dietitian. Continue supplements. Plan to discharge to SNF. (4) Hypertension Qualifiers: Hypertension type: essential hypertension Qualified Code(s): I10 - Essential (primary) hypertension Is this a current diagnosis for this admission?: Yes Plan: Lisinopril and amlodipine (5) Rhabdomyolysis Qualifiers: Rhabdomyolysis type: traumatic Encounter type: initial encounter Qualified Code(s): T79.6XXA - Traumatic ischemia of muscle, initial encounter Is this a current diagnosis for this admission?: Yes Plan: Likely secondary to prolonged immobilization on the floor from fall. Resolved (6) Urinary tract infection Qualifiers: Urinary tract infection type: site unspecified Hematuria presence: with hematuria Qualified Code(s): N39.0 - Urinary tract infection, site not specified; R31.9 - Hematuria, unspecified Is this a current diagnosis for this admission?: Yes Plan: Finished course of ceftriaxone and Keflex. Urine culture now growing pansensitive E. coli. (7) Hypomagnesemia Is this a current diagnosis for this admission?: Yes Plan: Replace and monitor. (8) Diarrhea Is this a current diagnosis for this admission?: Yes Plan: Continue IV fluids. Negative C. difficile. Improved. (9) Hypokalemia Is this a current diagnosis for this admission?: Yes Plan: Continue supplements and monitor magnesium and potassium levels.
[2019-06-09 13:08] LABS: ANION GAP 9 (5-19); BLOOD UREA NITROGEN 11 mg/dL (7-20); CARBON DIOXIDE 30 mmol/L (22-30); CHLORIDE 102 mmol/L (98-107); GLUCOSE 87 mg/dL (75-110); POTASSIUM 4.2 mmol/L (3.6-5.0)
[2019-06-09] MEDS: MIRTAZAPINE 15 MG TABLET PO SCH (22:23)
[2019-06-10] MEDS: HEPARIN SOD (PORCINE) 5,000 UNIT/ML 1 ML VIAL SUBCUT SCH ×3 (05:11→22:02)
[2019-06-10 05:55] LABS: HEMATOCRIT 31.5 % (36.0-47.0); HEMOGLOBIN 10.6 g/dL (12.0-15.5); MEAN CORPUSCULAR HEMOGLOBIN 28.7 pg (27.0-33.4); MEAN CORPUSCULAR HGB CONC 33.7 g/dL (32.0-36.0); MEAN CORPUSCULAR VOLUME 85 fl (80-97); PLATELET COUNT 472 10^3/uL (150-450); RED CELL DISTRIBUTION WIDTH 14.3 % (11.5-14.0); WHITE BLOOD COUNT 9.7 10^3/uL (4.0-10.5)
[2019-06-10] MEDS: NORMAL SALINE 1000 ML 1,000 ML IV PRN ×2 (06:28→16:58)
[2019-06-10] MEDS: CETIRIZINE 10 MG TABLET PO SCH (10:26)
[2019-06-10] MEDS: AMLODIPINE BESYLATE 5 MG TABLET PO SCH ×2 (10:26→22:02)
[2019-06-10] MEDS: GABAPENTIN 400 MG CAPSULE PO SCH ×2 (10:26→22:02)
[2019-06-10] MEDS: DULOXETINE HCL 30 MG CAPSULE.DR PO SCH ×2 (10:26→22:02)
[2019-06-10] MEDS: DRONABINOL 2.5 MG CAPSULE PO SCH ×3 (10:26→17:55)
[2019-06-10] MEDS: MAGNESIUM OXIDE 400 MG TABLET PO SCH ×2 (10:26→17:55)
[2019-06-10] MEDS: LISINOPRIL 10 MG TABLET PO SCH (10:26)
[2019-06-10] MEDS: POTASSIUM CHLORIDE 10 MEQ TABLET.ER PO SCH ×2 (10:26→17:55)
[2019-06-10] MEDS: IBUPROFEN 400 MG TABLET PO SCH ×2 (10:27→17:57)
[2019-06-10] MEDS: COLCHICINE 0.6 MG TABLET PO SCH (10:27)
[2019-06-10] MEDS: FLUTICASONE NASAL SPRAY 50 MCG/SPRY 120 SPRAY/16 GM NAREB SCH ×2 (10:28→17:55)
[2019-06-10] MEDS: VERAPAMIL HCL 240 MG TABLET.SA PO SCH (10:28)
--- NOTE | 2019-06-10 15:28 | PDOC PROGRESS REPORT ---
Subjective Progress Note for:: 06/10/19 Subjective:: OSMAN VALERIO is a 68 year old female with past medical history of difficulty hearing, chronic pain and narcotic use who presents to the emergency room via EMS. She was found on the floor after 3 days disheveled surrounded by trash and excrement the resides with her mother and sister. Patient is unable to provide significant history that led up to her being found on the ground. In the emergency room she is found to have leukocytosis, rhabdomyolysis and a urinary tract infection. She is started on empiric antibiotics, IV fluids and referred to the hospitalist for admission. Patient is unable to recall the names of her medications 06/02/2019. No acute events overnight. Pending placement to rehab. Reason For Visit: RHABDO FTT UTI Physical Exam Vital Signs: Temp Pulse Resp BP Pulse Ox 98.4 F 87 16 130/54 H 98 06/10/19 11:01 06/10/19 11:01 06/10/19 11:01 06/10/19 11:01 06/10/19 11:01 Intake & Output 06/09/19 06/10/19 06/11/19 06:59 06:59 06:59 Intake Total 3629 4558 576 Output Total 1150 1900 Balance 3629 3408 -1324 Weight 64.9 kg 53.7 kg General appearance: PRESENT: no acute distress, well-developed, well-nourished Head exam: PRESENT: atraumatic, normocephalic Respiratory exam: PRESENT: clear to auscultation stephany. ABSENT: rales, rhonchi, wheezes Cardiovascular exam: PRESENT: RRR. ABSENT: diastolic murmur, rubs, systolic murmur GI/Abdominal exam: PRESENT: normal bowel sounds, soft. ABSENT: distended, guarding, mass, organolmegaly, rebound, tenderness Neurological exam: PRESENT: alert, awake, oriented to person, oriented to place, CN II-XII grossly intact. ABSENT: motor sensory deficit Results Laboratory Results: 06/10/19 05:26 06/09/19 12:25 06/10/19 05:26 WBC 9.7 RBC 3.70 L Hgb 10.6 L Hct 31.5 L MCV 85 MCH 28.7 MCHC 33.7 RDW 14.3 H Plt Count 472 H 06/09/19 02:55 Stool - Stool - Final 05/31/19 05/31/19 06/02/19 21:00 21:00 06:22 Creatine Kinase 1388 H 479 H Troponin I 0.028 06/03/19 04:25 Creatine Kinase 172 H Troponin I Impressions: Chest X-Ray 05/31/19 21:07 IMPRESSION: No acute disease. copyright 2010 [employer]- All Rights Reserved Hip X-Ray 05/31/19 21:07 IMPRESSION: No acute displaced fracture of the left hip. Osteoarthritis copyright 2010 [employer]- All Rights Reserved Shoulder X-Ray 05/31/19 21:07 IMPRESSION: 1. No acute findings. Knee X-Ray 06/03/19 00:00 IMPRESSION: DEGENERATIVE CHANGES. CHONDROCALCINOSIS. NO ACUTE FINDINGS. Assessment and Plan - Diagnosis (1) Acute gout of right knee Qualifiers: Encounter type: initial encounter Is this a current diagnosis for this admission?: Yes Plan: Bilateral knee swelling and pain worse on the right side. That is post right knee thoracentesis. Synovitic fluid right knee WBC 13,300, RBC 633, neutrophil 96. Monosodium urate crystals present. Calcium pyrophosphate crystals not observed. Initially started on colchicine but unfortunately causing diarrhea. DC colchicine, start on prednisone 20 mg p.o. twice daily untill acute flare is resolved and to be tapered over 10 to 14 days. Outpatient rheumatology follow-up. (2) Ambulatory dysfunction Is this a current diagnosis for this admission?: Yes Plan: Secondary to generalized muscle weakness as well as bilateral knee pain and effusion PT recommending SNF. (3) Bilateral knee effusions Is this a current diagnosis for this admission?: Yes Plan: Patient has history of pseudogout with chondrocalcinosis noted on right knee x- ray Right knee arthrocentesis done by orthopedics. Fluid analysis showing 13,000 WBCs which makes septic arthritis unlikely and shows intracellular monosodium crystals suggestive of gout. Plan as per #1. (4) Diarrhea Qualifiers: Diarrhea type: unspecified type Qualified Code(s): R19.7 - Diarrhea, unspecified Is this a current diagnosis for this admission?: Yes Plan: Improved. C. difficile negative. WBC WNL. Afebrile. This was likely induced by colchicine started for acute gouty attack. DC colchicine. Monitor volume status, monitor electrolytes and replace as needed. (5) Failure to thrive Qualifiers: Failure to thrive age range: in adult Qualified Code(s): R62.7 - Adult failure to thrive Is this a current diagnosis for this admission?: Yes Plan: Patient seems to have some cognitive impairment as well on encounter. Patient was found in her house very poorly kept, dirty, seems to be a hoarder and covered in faeces. Continue Marinol. She seems to be depressed. Continue mirtazapine. Continue supplements. (6) Hypertension Qualifiers: Hypertension type: essential hypertension Qualified Code(s): I10 - Essential (primary) hypertension Is this a current diagnosis for this admission?: Yes Plan: Euvolemic. Normotensive. Continue lisinopril and amlodipine. Outpatient PCP follow-up. Adjust dosage as needed. (7) Hypomagnesemia Is this a current diagnosis for this admission?: Yes Plan: Repleted. Replace and monitor. (8) Rhabdomyolysis Qualifiers: Rhabdomyolysis type: traumatic Encounter type: initial encounter Qualified Code(s): T79.6XXA - Traumatic ischemia of muscle, initial encounter Is this a current diagnosis for this admission?: Yes Plan: Likely secondary to prolonged immobilization on the floor from fall. Renal function WNL. Resented with CK of 13,000 noted with CK of 1388. Follow- up CK 172. (9) Urinary tract infection Qualifiers: Urinary tract infection type: site unspecified Hematuria presence: with hematuria Qualified Code(s): N39.0 - Urinary tract infection, site not specified; R31.9 - Hematuria, unspecified Is this a current diagnosis for this admission?: Yes Plan: Due to E. coli pansensitive. Completed a course of IV antibiotics. Asymptomatic. (10) Hypokalemia Is this a current diagnosis for this admission?: Yes Plan: Replaced. Potassium WNL.
[2019-06-10] MEDS: MIRTAZAPINE 15 MG TABLET PO SCH (22:02)
[2019-06-11] MEDS: NORMAL SALINE 1000 ML 1,000 ML IV PRN (03:02)
[2019-06-11] MEDS: HEPARIN SOD (PORCINE) 5,000 UNIT/ML 1 ML VIAL SUBCUT SCH ×2 (05:33→13:28)
[2019-06-11] MEDS: MAGNESIUM OXIDE 400 MG TABLET PO SCH (09:49)
[2019-06-11] MEDS: DULOXETINE HCL 30 MG CAPSULE.DR PO SCH (09:49)
[2019-06-11] MEDS: DRONABINOL 2.5 MG CAPSULE PO SCH ×2 (09:49→13:28)
[2019-06-11] MEDS: AMLODIPINE BESYLATE 5 MG TABLET PO SCH (09:49)
[2019-06-11] MEDS: LISINOPRIL 10 MG TABLET PO SCH (09:49)
[2019-06-11] MEDS: POTASSIUM CHLORIDE 10 MEQ TABLET.ER PO SCH (09:49)
[2019-06-11] MEDS: CETIRIZINE 10 MG TABLET PO SCH (09:50)
[2019-06-11] MEDS: COLCHICINE 0.6 MG TABLET PO SCH (09:50)
[2019-06-11] MEDS: VERAPAMIL HCL 240 MG TABLET.SA PO SCH (09:50)
[2019-06-11] MEDS: GABAPENTIN 400 MG CAPSULE PO SCH (09:50)
[2019-06-11] MEDS: IBUPROFEN 400 MG TABLET PO SCH (09:50)
[2019-06-11] MEDS: FLUTICASONE NASAL SPRAY 50 MCG/SPRY 120 SPRAY/16 GM NAREB SCH (09:51)
[2019-06-11] MEDS ORDERED: PREDNISONE 20 MG TABLET PO SCH (11:45)
--- NOTE | 2019-06-11 12:31 | PDOC H&P/TRANSFER SUM ---
General Admission Date/PCP: 06/01/19 00:55 TYRONE FLORES MD Resuscitation Status: Full Code - Transfer Diagnosis (1) Acute gout of right knee Current Visit: Yes (2) Ambulatory dysfunction Current Visit: Yes (3) Bilateral knee effusions Current Visit: Yes (4) Diarrhea Current Visit: Yes (5) Failure to thrive Current Visit: Yes (6) Hypertension Current Visit: Yes (7) Hypomagnesemia Current Visit: Yes (8) Rhabdomyolysis Current Visit: Yes (9) Urinary tract infection Current Visit: Yes (10) Hypokalemia Current Visit: No - Transfer Medications Home Medications: Benzonatate 200 mg PO Q8HP PRN 06/01/19 Cetirizine HCl [Zyrtec 10 mg Tablet] 10 mg PO DAILY 06/01/19 Duloxetine HCl 60 mg PO Q12 06/01/19 Fluticasone Propionate [Flonase Nasal [place] 50 Mcg/[place] 16 gm] 1 spray NAREB BID 06/01/19 Gabapentin [Neurontin 400 mg Capsule] 400 mg PO Q12 06/01/19 Lisinopril [Prinivil 10 mg Tablet] 40 mg PO DAILY 06/01/19 Loperamide HCl [Imodium 2 mg Capsule] 2 mg PO BIDP PRN 06/01/19 Naproxen 500 mg PO DAILY 06/01/19 Tramadol HCl [Ultram 50 mg Tablet] 50 mg PO Q6HP PRN 06/01/19 Verapamil HCl [Calan Sr 240 mg Tablet.sa] 240 mg PO DAILY 06/01/19 Transfer Medications: Current Medications Acetaminophen (Tylenol 325 Mg Tablet) 650 mg PO Q4HP PRN PRN Reason: FOR PAIN OR TEMP Stop: 07/01/19 00:37 Last Admin: 06/08/19 20:17 Dose: 650 mg Documented by: Al Hydrox/Mg Hydrox/Simethicone (Maalox Plus Susp 30 Udcup) 30 ml PO Q6HP PRN PRN Reason: HEARTBURN Stop: 07/01/19 00:37 Albuterol/Ipratropium (Duoneb 3 Ml Ampul) 3 ml NEB [id number] PRN PRN Reason: SHORTNESS OF BREATH Stop: 07/01/19 00:37 Amlodipine Besylate (Norvasc 5 Mg Tablet) 5 mg PO Q12 JEVON Stop: 07/01/19 09:59 Last Admin: 06/11/19 09:49 Dose: 5 mg Documented by: Cetirizine HCl (Zyrtec 10 Mg Tablet) 10 mg PO DAILY [facility] Stop: 07/02/19 09:59 Last Admin: 06/11/19 09:50 Dose: 10 mg Documented by: Dronabinol (Marinol 2.5 Mg Capsule) 2.5 mg PO TID [facility] Stop: 06/12/19 17:59 Last Admin: 06/11/19 09:49 Dose: 2.5 mg Documented by: Duloxetine HCl (Cymbalta 30 Mg Capsule.Dr) 60 mg PO Q12 [facility] Stop: 07/01/19 21:59 Last Admin: 06/11/19 09:49 Dose: 60 mg Documented by: Fluticasone Propionate (Flonase Nasal [place] 50 Mcg/[place] 16 Gm) 1 spray NAREB BID [facility] Stop: 07/01/19 17:59 Last Admin: 06/11/19 09:51 Dose: 1 sprays Documented by: Gabapentin (Neurontin 400 Mg Capsule) 400 mg PO Q12 [facility] Stop: 07/01/19 21:59 Last Admin: 06/11/19 09:50 Dose: 400 mg Documented by: Heparin Sodium (Porcine) (Heparin Inj 5,000 Units/Ml 1 Ml Vial) 5,000 unit SUBCUT Q8 [facility] Stop: 07/01/19 05:59 Last Admin: 06/11/19 05:33 Dose: 5,000 unit Documented by: Sodium Chloride (Nacl 0.9% 1000 Ml Iv Soln) 1,000 mls @ 100 mls/hr IV CONTINUOUS PRN PRN Reason: THIS MED IS NOT "PRN" Stop: 07/02/19 12:32 Last Admin: 06/11/19 03:02 Dose: 100 mls/hr Documented by: Ibuprofen (Motrin 400 Mg Tablet) 400 mg PO BID [facility] Stop: 07/03/19 17:59 Last Admin: 06/11/19 09:50 Dose: 400 mg Documented by: Lisinopril (Prinivil 10 Mg Tablet) 40 mg PO DAILY [facility] Stop: 07/02/19 09:59 Last Admin: 06/11/19 09:49 Dose: 40 mg Documented by: Magnesium Hydroxide (Milk Of Magnesia 30 Ml Udcup) 30 ml PO HSP PRN PRN Reason: FOR CONSTIPATION Stop: 07/01/19 00:37 Magnesium Oxide (Mag-Ox 400 Mg Tablet) 400 mg PO BID JEVON Stop: 07/07/19 17:59 Last Admin: 06/11/19 09:49 Dose: 400 mg Documented by: Mirtazapine (Remeron 15 Mg Tablet) 15 mg PO QHS JEVON Stop: 07/05/19 21:59 Last Admin: 06/10/19 22:02 Dose: 15 mg Documented by: Potassium Chloride (Klor-Con 10 Meq Tablet Er) 40 meq PO BID JEVON Stop: 07/08/19 17:59 Last Admin: 06/11/19 09:49 Dose: 40 meq Documented by: Prednisone (Deltasone 20 Mg Tablet) 20 mg PO BID [facility] Stop: 07/11/19 11:44 Verapamil HCl (Calan Sr 240 Mg Tablet.Sa) 240 mg PO DAILY [facility] Stop: 07/01/19 13:59 Last Admin: 06/11/19 09:50 Dose: 240 mg Documented by: - Allergies Allergies/Adverse Reactions: No Known Allergies Allergy (Verified 01/28/16 13:17) History of Present Illness Admission Date/PCP: 06/01/19 00:55 TYRONE FLORES MD History of Present Illness: OSMAN VALERIO is a 68 year old female with past medical history of difficulty hearing, chronic pain and narcotic use who presents to the emergency room via EMS. She was found on the floor after 3 days disheveled surrounded by trash and excrement the resides with her mother and sister. Patient is unable to provide significant history that led up to her being found on the ground. In the emergency room she is found to have leukocytosis, rhabdomyolysis and a urinary tract infection. She is started on empiric antibiotics, IV fluids and referred to the hospitalist for admission. Patient is unable to recall the names of her medications (1) Acute gout of right knee Bilateral knee swelling and pain worse on the right side. That is post right knee thoracentesis. Synovitic fluid right knee WBC 13,300, RBC 633, neutrophil 96. Monosodium urate crystals present. Calcium pyrophosphate crystals not observed. Initially started on colchicine but unfortunately causing diarrhea. DC colchicine, start on prednisone 20 mg p.o. twice daily untill acute flare is resolved and to be tapered over 10 to 14 days. Continue Motrin 400 p.o. twice daily. Continue once acute gouty flare has resolved to avoid GI renal side effects. Outpatient rheumatology follow-up. (2) Ambulatory dysfunction Secondary to generalized muscle weakness as well as bilateral knee pain and effusion PT recommending SNF. (3) Bilateral knee effusions Patient has history of pseudogout with chondrocalcinosis noted on right knee x- ray Right knee arthrocentesis done by orthopedics. Fluid analysis showing 13,000 WBCs which makes septic arthritis unlikely and shows intracellular monosodium crystals suggestive of gout. Plan as per #1. (4) Diarrhea Chronic diarrhea likely worsened by addition of colchicine for acute gout attack. Takes Imodium at home. Improved. C. difficile negative. WBC WNL. Afebrile. DC colchicine. Monitor volume status, monitor electrolytes and replace as needed. (5) Failure to thrive Patient seems to have some cognitive impairment as well on encounter. Patient was found in her house very poorly kept, dirty, seems to be a hoarder and covered in faeces. Continue Marinol. She seems to be depressed. Continue mirtazapine. Continue supplements. (6) Hypertension Euvolemic. Normotensive. Continue lisinopril and amlodipine. Outpatient PCP follow-up. Adjust dosage as needed. (7) Hypomagnesemia Replaced. Magnesium level WNL. Continue supplemental magnesium. Patient will need her magnesium rechecked once her diarrhea resolved to avoid causing hypermagnesemia. (8) Rhabdomyolysis Likely secondary to prolonged immobilization on the floor from fall. Renal function WNL. Resented with CK of 13,000 noted with CK of 1388. Follow- up CK 172. (9) Urinary tract infection Due to E. coli pansensitive. Completed a course of IV antibiotics. Asymptomatic. (10) Hypokalemia Due to GI losses. Replaced. Potassium WNL. Continue supplemental potassium. Patient will need routine BMP if she is continued on supplemental potassium and her diarrhea has completely resolved to avoid causing hyperkalemia. Past Medical History Cardiac Medical History: Reports: Hyperlipidema, Hypertension GI Medical History: Reports: Gastroesophageal Reflux Disease Psychiatric Medical History: Reports: Depression Denies: Dementia, Substance Abuse, Tobacco Dependency Past Surgical History Past Surgical History: Reports: Cholecystectomy, Orthopedic Surgery - left FA Fx Social History Lives with: Family Smoking Status: Never Smoker Electronic Cigarette use?: No Frequency of Alcohol Use: None Hx Recreational Drug Use: No Drugs: None Hx Prescription Drug Abuse: No - patient denies - Advance Directive Resuscitation Status: Full Code Family History Family History: Hypertension Parental Family History Reviewed: Yes Children Family History Reviewed: Yes Sibling(s) Family History Reviewed.: Yes Physical Exam Vital Signs: Temp Pulse Resp BP Pulse Ox 97.6 F 88 16 117/98 H 98 06/11/19 10:59 06/11/19 10:59 06/11/19 10:59 06/11/19 10:59 06/11/19 10:59 Intake & Output 06/10/19 06/11/19 06/12/19 06:59 06:59 06:59 Intake Total 4558 3918 Output Total 1150 4000 Balance 3408 -82 Weight 53.7 kg 53.7 kg General appearance: PRESENT: no acute distress, well-developed, well-nourished Neck exam: ABSENT: carotid bruit, JVD, lymphadenopathy, thyromegaly Respiratory exam: PRESENT: clear to auscultation stephany. ABSENT: rales, rhonchi, wheezes Cardiovascular exam: PRESENT: RRR. ABSENT: diastolic murmur, rubs, systolic murmur GI/Abdominal exam: PRESENT: normal bowel sounds, soft. ABSENT: distended, guarding, mass, organolmegaly, rebound, tenderness Extremities exam: PRESENT: full ROM, tenderness - Bilateral knee numbness, bilateral lower extremity neurovascularly intact. No erythema, discharge or any sign of infection.. ABSENT: calf tenderness, clubbing, pedal edema Skin exam: PRESENT: dry, intact, warm. ABSENT: cyanosis, rash Results Laboratory Results: 06/10/19 05:26 06/09/19 12:25 06/09/19 02:55 Stool - Stool - Final 05/31/19 05/31/19 06/02/19 21:00 21:00 06:22 Creatine Kinase 1388 H 479 H Troponin I 0.028 06/03/19 04:25 Creatine Kinase 172 H Troponin I Impressions: Chest X-Ray 05/31/19 21:07 IMPRESSION: No acute disease. copyright 2010 [employer]- All Rights Reserved Hip X-Ray 05/31/19 21:07 IMPRESSION: No acute displaced fracture of the left hip. Osteoarthritis copyright 2010 [employer]- All Rights Reserved Shoulder X-Ray 05/31/19 21:07 IMPRESSION: 1. No acute findings. Knee X-Ray 06/03/19 00:00 IMPRESSION: DEGENERATIVE CHANGES. CHONDROCALCINOSIS. NO ACUTE FINDINGS.
[2019-06-11 17:39] VITALS: BP 140/32
--- NOTE | 2019-06-14 17:53 | PDOC TRANSFER SUMMARY ---
General Admission Date/PCP: 06/01/19 00:55 TYRONE FLORES MD Resuscitation Status: Full Code - Transfer Diagnosis (1) Acute gout of right knee Is this a current diagnosis for this admission?: Yes (2) Ambulatory dysfunction Is this a current diagnosis for this admission?: Yes (3) Bilateral knee effusions Is this a current diagnosis for this admission?: Yes (4) Diarrhea Is this a current diagnosis for this admission?: Yes (5) Failure to thrive Is this a current diagnosis for this admission?: Yes (6) Hypertension Is this a current diagnosis for this admission?: Yes (7) Hypomagnesemia Is this a current diagnosis for this admission?: Yes (8) Rhabdomyolysis Is this a current diagnosis for this admission?: Yes (9) Urinary tract infection Is this a current diagnosis for this admission?: Yes (10) Hypokalemia Is this a current diagnosis for this admission?: Yes - Transfer Medications Home Medications: Benzonatate 200 mg PO Q8HP PRN 06/01/19 Cetirizine HCl [Zyrtec 10 mg Tablet] 10 mg PO DAILY 06/01/19 Duloxetine HCl 60 mg PO Q12 06/01/19 Fluticasone Propionate [Flonase Nasal [place] 50 Mcg/[place] 16 gm] 1 spray NAREB BID 06/01/19 Gabapentin [Neurontin 400 mg Capsule] 400 mg PO Q12 06/01/19 Lisinopril [Prinivil 10 mg Tablet] 40 mg PO DAILY 06/01/19 Loperamide HCl [Imodium 2 mg Capsule] 2 mg PO BIDP PRN 06/01/19 Naproxen 500 mg PO DAILY 06/01/19 Tramadol HCl [Ultram 50 mg Tablet] 50 mg PO Q6HP PRN 06/01/19 Verapamil HCl [Calan Sr 240 mg Tablet.sa] 240 mg PO DAILY 06/01/19 - Allergies Allergies/Adverse Reactions: No Known Allergies Allergy (Verified 01/28/16 13:17) Hospital Course Hospital Course: OSMAN VALERIO is a 68 year old female with past medical history of difficulty hearing, chronic pain and narcotic use who presents to the emergency room via EMS. She was found on the floor after 3 days disheveled surrounded by trash and excrement the resides with her mother and sister. Patient is unable to provide significant history that led up to her being found on the ground. In the emergency room she is found to have leukocytosis, rhabdomyolysis and a urinary tract infection. She is started on empiric antibiotics, IV fluids and referred to the hospitalist for admission. Patient is unable to recall the names of her medications (1) Acute gout of right knee Bilateral knee swelling and pain worse on the right side. That is post right knee thoracentesis. Synovitic fluid right knee WBC 13,300, RBC 633, neutrophil 96. Monosodium urate crystals present. Calcium pyrophosphate crystals not observed. Initially started on colchicine but unfortunately causing diarrhea. DC colchicine, start on prednisone 20 mg p.o. twice daily untill acute flare is resolved and to be tapered over 10 to 14 days. Continue Motrin 400 p.o. twice daily. Continue once acute gouty flare has resolved to avoid GI renal side effects. Outpatient rheumatology follow-up. (2) Ambulatory dysfunction Secondary to generalized muscle weakness as well as bilateral knee pain and effusion PT recommending SNF. (3) Bilateral knee effusions Patient has history of pseudogout with chondrocalcinosis noted on right knee x- ray Right knee arthrocentesis done by orthopedics. Fluid analysis showing 13,000 WBCs which makes septic arthritis unlikely and shows intracellular monosodium crystals suggestive of gout. Plan as per #1. (4) Diarrhea Chronic diarrhea likely worsened by addition of colchicine for acute gout a ttack. Takes Imodium at home. Improved. C. difficile negative. WBC WNL. Afebrile. DC colchicine. Monitor volume status, monitor electrolytes and replace as needed. (5) Failure to thrive Patient seems to have some cognitive impairment as well on encounter. Patient was found in her house very poorly kept, dirty, seems to be a hoarder and covered in faeces. Continue Marinol. She seems to be depressed. Continue mirtazapine. Continue supplements. (6) Hypertension Euvolemic. Normotensive. Continue lisinopril and amlodipine. Outpatient PCP follow-up. Adjust dosage as needed. (7) Hypomagnesemia Replaced. Magnesium level WNL. Continue supplemental magnesium. Patient will need her magnesium rechecked once her diarrhea resolved to avoid causing hypermagnesemia. (8) Rhabdomyolysis Likely secondary to prolonged immobilization on the floor from fall. Renal function WNL. Resented with CK of 13,000 noted with CK of 1388. Follow- up CK 172. (9) Urinary tract infection Due to E. coli pansensitive. Completed a course of IV antibiotics. Asymptomatic. (10) Hypokalemia Due to GI losses. Replaced. Potassium WNL. Continue supplemental potassium. Patient will need routine BMP if she is continued on supplemental potassium and her diarrhea has completely resolved to avoid causing hyperkalemia. Physical Exam Vital Signs: Temp Pulse Resp BP Pulse Ox 98.4 F 89 16 140/32 H 96 06/11/19 17:35 06/11/19 17:35 06/11/19 17:35 06/11/19 17:35 06/11/19 17:35 General appearance: PRESENT: no acute distress, well-developed, well-nourished Head exam: PRESENT: atraumatic, normocephalic Respiratory exam: PRESENT: clear to auscultation stephany. ABSENT: rales, rhonchi, wheezes GI/Abdominal exam: PRESENT: normal bowel sounds, soft. ABSENT: distended, guarding, mass, organolmegaly, rebound, tenderness Neurological exam: PRESENT: alert, awake, oriented to person, oriented to place, CN II-XII grossly intact. ABSENT: motor sensory deficit Results Laboratory Results: 06/10/19 05:26 06/09/19 12:25 05/31/19 05/31/19 06/02/19 21:00 21:00 06:22 Creatine Kinase 1388 H 479 H Troponin I 0.028 06/03/19 04:25 Creatine Kinase 172 H Troponin I Impressions: Chest X-Ray 05/31/19 21:07 IMPRESSION: No acute disease. copyright 2010 [employer]- All Rights Reserved Hip X-Ray 05/31/19 21:07 IMPRESSION: No acute displaced fracture of the left hip. Osteoarthritis copyright 2010 [employer]- All Rights Reserved Shoulder X-Ray 05/31/19 21:07 IMPRESSION: 1. No acute findings. Knee X-Ray 06/03/19 00:00 IMPRESSION: DEGENERATIVE CHANGES. CHONDROCALCINOSIS. NO ACUTE FINDINGS.
== END 2019-06-11 17:39 | DRG 554 ==
LOC: ER 20:37 → EH 06-01 00:55 → 4S 06-01 03:18
PROVIDERS: ADMIT Internal Medicine; ATTEND Internal Medicine
PROC: 0S9C3ZX Drainage of Right Knee Joint, Percutaneous Approach, Diagnostic (ICD-10-PCS; principal; 2019-06-02)
DX: M10.9 Gout, unspecified (principal); M62.82 Rhabdomyolysis; N39.0 Urinary tract infection, site not specified; L89.892 Pressure ulcer of other site, stage 2; M11.261 Other chondrocalcinosis, right knee; E87.6 Hypokalemia; E83.42 Hypomagnesemia; R62.7 Adult failure to thrive; I10 Essential (primary) hypertension; E78.00 Pure hypercholesterolemia, unspecified; K21.9 Gastro-esophageal reflux disease without esophagitis; R31.9 Hematuria, unspecified; B96.20 Unspecified Escherichia coli [E. coli] as the cause of diseases classified elsewhere; F32.9 Major depressive disorder, single episode, unspecified
CPT/HCPCS: 36415; 51702; 71045; 80048; 80053; 81001; 82550; 83735; 84100; 84134; 84443; 84484; 84550; 85025; 85027; 85652; 86140; 87040; 87045; 87070; 87075; 87077; 87086; 87088; 87186; 87205; 87324; 87449; 89050; 89060; 93005; 93010; 96361; 96374; 96375; 99285; A9270-GY; J0696; J1644; J2270; J2405; J3475; J3480; J3490; J7030; J7512

== ENCOUNTER 2019-07-18 09:35 | Inpatient (IN) | payer MEDICARE, MEDICAID ==
[2019-07-18] MEDS ORDERED: NORMAL SALINE 1000 ML 1,000 ML IV PRN (10:13)
--- NOTE | 2019-07-18 10:15 | ER Document Report ---
ED General - General Chief Complaint: Abnormal Lab Results Stated Complaint: POSSIBLE SEPSIS Time Seen by Provider: 07/18/19 09:51 Primary Care Provider: TYRONE FLORES MD [Primary Care Provider] - Follow up as needed Mode of Arrival: Medic Information source: Patient Notes: 68-year-old woman presents to the emergency department with a elevated white blood cell count and multiple joint swelling and pain. She was sent to the emergency department for evaluation for possible sepsis. TRAVEL OUTSIDE OF THE [place] IN LAST 30 DAYS: No - Related Data Allergies/Adverse Reactions: No Known Allergies Allergy (Verified 01/28/16 13:17) Home Medications: ASA, Atorvastatin, benztropine, biotene, bisacodyl, Docusate, fluvoxamine, maalox, magnesium oxide, melatonin, propranolol, prostat Past Medical History - Social History Smoking Status: Never Smoker Family History: Hypertension Patient has suicidal ideation: No Patient has homicidal ideation: No - Past Medical History Cardiac Medical History: Reports: Hx Hypercholesterolemia, Hx Hypertension GI Medical History: Reports: Hx Gastroesophageal Reflux Disease Psychiatric Medical History: Reports: Hx Depression Denies: Hx Dementia Past Surgical History: Reports: Hx Cholecystectomy, Hx Orthopedic Surgery - left FA Fx - Immunizations Hx Diphtheria, Pertussis, Tetanus Vaccination: No Hx Pneumococcal Vaccination: 01/19/11 Review of Systems - Review of Systems Notes: Constitutional: Negative for fever. HENT: Negative for sore throat. Eyes: Negative for visual changes. Cardiovascular: Negative for chest pain. Respiratory: Negative for shortness of breath. Gastrointestinal: Negative for abdominal pain, vomiting or diarrhea. Genitourinary: Negative for dysuria. Musculoskeletal: + Knee swelling and pain, + bilateral ankle pain Skin: Negative for rash. Neurological: + Poor historian. 10 point ROS negative except as marked above and in HPI. Physical Exam - Vital signs Vitals: Temp Resp BP 98.3 F 17 142/68 H 07/18/19 09:41 07/18/19 09:41 07/18/19 09:41 - Notes Notes: PHYSICAL EXAMINATION: Physical Exam: General: Frail elderly 68-year-old woman moderate distress secondary to bilateral knee and bilateral ankle pain. HEENT: NC/AT, pupils equal round and reactive to light, MM moist,nares clear, oropharynx clear, airway patent Neck: supple, no adenopathy, no masses. Good range of motion Lungs: clear, no wheezing, no rales no rhonchi CVS: Regular rate and rhythm no murmur gallop or rub Abdomen: Soft, active, nontender, no masses, no hepatosplenomegaly Ext: + Swelling at the knees bilaterally, + swelling at the ankles bilaterally Neuro: Alert and responsive, moving all 4 extremities on command, cranial nerves intact, no focal findings Skin: Intact no open lesions, no rash PSYCH: Normal mood, normal affect. Course - Re-evaluation Re-evalutation: 07/18/19 13:07 Sepsis work-up was begun blood cultures x2, lactate, IV fluids, and 1 dose of IV antibiotics given as part of the protocol. Lactate is 1.1 patient is afebrile white count is elevated at 18,000. Given the bilateral joint swelling, history of osteoarthritis is unclear whether this is an acute flare of arthritis which may be supported by CRP, uric acid level. The patient is given Decadron 10 mg IV and Toradol 30 mg. BUN and creatinine are also elevated and the patient is given more IV fluids. I have discussed the patient with the hospitalist, Dr. Itz diego will admit the patient to the hospital for further evaluation and treatment. - Vital Signs Vital signs: Temp Pulse Resp BP Pulse Ox 98.3 F 15 136/68 H 95 07/18/19 09:41 07/18/19 10:01 07/18/19 10:00 07/18/19 10:01 - Laboratory Result Diagrams: 07/18/19 09:43 07/18/19 09:43 Laboratory results interpreted by me: 07/18/19 07/18/19 07/18/19 09:43 09:43 10:45 WBC 18.4 H RBC 3.24 L Hgb 9.1 L Hct 27.2 L RDW 17.0 H Plt Count 723 H Seg Neuts % (Manual) 84 H Lymphocytes % (Manual) 3 L Abs Neuts (Manual) 15.5 H Abs Monocytes (Manual) 2.4 H ABG pO2 ABG HCO3 ABG Total CO2 ABG O2 Saturation Sodium 133.1 L Potassium 5.7 H Chloride 95 L BUN 46 H Creatinine 1.69 H Est GFR ( Amer) 36 L Est GFR (MDRD) Non-Af 30 L Glucose 122 H Alkaline Phosphatase 294 H C-Reactive Protein 388.4 H Total Protein 5.9 L Albumin 2.8 L Urine Protein 30 H Urine Blood SMALL H 07/18/19 10:50 WBC RBC Hgb Hct RDW Plt Count Seg Neuts % (Manual) Lymphocytes % (Manual) Abs Neuts (Manual) Abs Monocytes (Manual) ABG pO2 68.1 L ABG HCO3 25.4 H ABG Total CO2 26.6 H ABG O2 Saturation 93.7 L Sodium Potassium Chloride BUN Creatinine Est GFR ( Amer) Est GFR (MDRD) Non-Af Glucose Alkaline Phosphatase C-Reactive Protein Total Protein Albumin Urine Protein Urine Blood Discharge - Discharge Clinical Impression: Polyarthritis, LENIN (acute kidney injury) Dementia Qualifiers: Dementia type: unspecified type Dementia behavioral disturbance: without behavioral disturbance Qualified Code(s): F03.90 - Unspecified dementia without behavioral disturbance Leukocytosis Qualifiers: Leukocytosis type: lymphocytosis Qualified Code(s): D72.820 - Lymphocytosis (symptomatic) Condition: Good Disposition: ADMITTED INPATIENT Admitting Provider: Renard (Hospitalist) Unit Admitted: Medical Floor Referrals: TYRONE FLORES MD [Primary Care Provider] - Follow up as needed
[2019-07-18] MEDS ORDERED: DEXAMETHASONE SOD PHOS INJ 10 MG/1 ML VIAL IV ONE (10:16)
[2019-07-18] MEDS ORDERED: KETOROLAC TROMETHAMINE INJ/PF 30 MG/1 ML SDV IV ONE (10:16)
[2019-07-18 10:36] LABS: INTERNATIONAL RATION (INR) 1.16; PROTHROMBIN TIME 14.9 SEC (11.4-15.4)
[2019-07-18 10:43] LABS: HEMATOCRIT 27.2 % (36.0-47.0); HEMOGLOBIN 9.1 g/dL (12.0-15.5); MEAN CORPUSCULAR HGB CONC 33.3 g/dL (32.0-36.0); MEAN CORPUSCULAR VOLUME 84 fl (80-97); PLATELET COUNT 723 10^3/uL (150-450); RED BLOOD COUNT 3.24 10^6/uL (3.72-5.28); WHITE BLOOD COUNT 18.4 10^3/uL (4.0-10.5)
--- NOTE | 2019-07-18 10:48 | RADIOLOGY REPORT (SQ) ---
EXAM DESCRIPTION: CHEST SINGLE VIEW COMPLETED DATE/TIME: 07/18/2019 10:37 am REASON FOR STUDY: Possible sepsis COMPARISON: AP chest 05/31/2019 EXAM PARAMETERS: NUMBER OF VIEWS: One view. TECHNIQUE: Single frontal radiographic view of the chest acquired. RADIATION DOSE: NA LIMITATIONS: Low lung volumes FINDINGS: LUNGS AND PLEURA: Low lung volumes. Minimal bibasilar airspace disease likely atelectasis . No fluffy alveolar infiltrates worrisome for pulmonary edema. No pleural effusion. No pneumothorax. Old surgical miko right lung apex. MEDIASTINUM AND HILAR STRUCTURES: No masses. Contour normal. HEART AND VASCULAR STRUCTURES: Heart normal in size. Normal vasculature. BONES: No acute findings. HARDWARE: Clips right upper quadrant post cholecystectomy. Old surgical clips right lung apex OTHER: No other significant finding. IMPRESSION: Low lung volumes with probable bibasilar atelectasis TECHNICAL DOCUMENTATION: JOB ID: [id number] 2010 [employer]- All Rights Reserved Reading location - IP/workstation name: [email or web address]
[2019-07-18 10:54] LABS: ALBUMIN 2.8 g/dL (3.5-5.0); ALKALINE PHOSPHATASE 294 U/L (38-126); ANION GAP 10 (5-19); ASPARTATE AMINO TRANSFERASE 36 U/L (14-36); BILIRUBIN,DIRECT 0.3 mg/dL (0.0-0.4); BILIRUBIN,TOTAL 0.4 mg/dL (0.2-1.3); BLOOD UREA NITROGEN 46 mg/dL (7-20); CALCIUM 8.7 mg/dL (8.4-10.2); CARBON DIOXIDE 28 mmol/L (22-30); CHLORIDE 95 mmol/L (98-107); GLUCOSE 122 mg/dL (75-110); POTASSIUM 5.7 mmol/L (3.6-5.0); TOTAL PROTEIN 5.9 g/dL (6.3-8.2); URIC ACID 4.5 mg/dL (2.5-7.5)
[2019-07-18 11:08] LABS: ARTERIAL BLOOD BASE EXCESS 0.6 mmol/L; ARTERIAL BLOOD H2CO3 1.24 mmol/L (1.05-1.35); ARTERIAL BLOOD HCO3 25.4 mmol/L (20-24); ARTERIAL BLOOD O2 SATURATION 93.7 % (94-98); ARTERIAL BLOOD PCO2 41.3 mmHg (35-45); ARTERIAL BLOOD PH 7.41 (7.35-7.45); ARTERIAL BLOOD PO2 68.1 mmHg (80-100); ARTERIAL BLOOD TOTAL CO2 26.6 mmol/L (21-25)
[2019-07-18 11:09] LABS: APPEARANCE,URINE SLIGHTLY-CLOUDY; BILIRUBIN,URINE NEGATIVE (NEGATIVE); COLOR,URINE YELLOW; GLUCOSE, URINE NEGATIVE (NEGATIVE); KETONES,URINE NEGATIVE (NEGATIVE); PROTEIN,URINE 30 mg/dL (NEGATIVE); URINE SPECIFIC GRAVITY 1.013; UROBILINOGEN,URINE NEGATIVE mg/dL (<2.0)
[2019-07-18 11:10] LABS: ABSOLUTE LYMPHOCYTES# (MANUAL) 0.6 10^3/uL (0.5-4.7); ABSOLUTE MONOCYTES # (MANUAL) 2.4 10^3/uL (0.1-1.4); BASOPHILS % (MANUAL) 0 % (0-2); EOSINOPHILS % (MANUAL) 0 % (0-6); LYMPHOCYTES % (MANUAL) 3 % (13-45); MONOCYTES % (MANUAL) 13 % (3-13); SEGMENTED NEUTROPHILS % (MAN) 84 % (42-78); TOTAL CELLS COUNTED 100
[2019-07-18 11:11] LABS: ANISOCYTOSIS 1+; PLATELET COMMENT INCREASED
[2019-07-18 11:12] LABS: ARTERIAL BLOOD FIO2 ROOM AIR
[2019-07-18 11:12] LABS: HYPOCHROMASIA SLIGHT; TOXIC VACUOLATION PRESENT
[2019-07-18 11:29] LABS: C-REACTIVE PROTEIN 388.4 mg/L (<10.0)
[2019-07-18] MEDS: PIPERACILLIN SODIUM/TAZOBACTAM 4.5 GM in NORMAL SALINE 100 ML IV SCH ×3 (12:13→23:12)
[2019-07-18] MEDS ORDERED: ALBUTEROL SULFATE 0.042% NEB (1.25 MG/3 ML) AMPUL NEB ONE (14:26)
[2019-07-18] MEDS ORDERED: ONDANSETRON HCL INJ/PF 4 MG/2 ML SDV IV PRN (14:27)
[2019-07-18] MEDS ORDERED: ACETAMINOPHEN 325 MG TABLET PO PRN (14:27)
[2019-07-18] MEDS ORDERED: PROMETHAZINE HCL INJ 25 MG/1 ML VIAL IV PRN (14:27)
[2019-07-18] MEDS ORDERED: MAGNESIUM HYDROXIDE SUSP 30 ML UDCUP PO PRN (14:27)
[2019-07-18] MEDS ORDERED: COLCHICINE 0.6 MG TABLET PO ONE ×2 (15:00→18:30)
[2019-07-18] MEDS ORDERED: CALCIUM GLUCONATE 1000 MG/10 ML INJ IV ONE (15:00)
[2019-07-18 17:46] LABS: ANION GAP 11 (5-19); BLOOD UREA NITROGEN 40 mg/dL (7-20); CALCIUM 8.7 mg/dL (8.4-10.2); CARBON DIOXIDE 23 mmol/L (22-30); CHLORIDE 100 mmol/L (98-107); GLUCOSE 130 mg/dL (75-110); POTASSIUM 5.3 mmol/L (3.6-5.0)
--- NOTE | 2019-07-18 18:03 | EKG REPORT ---
SEVERITY:- OTHERWISE NORMAL ECG - SINUS TACHYCARDIA : Confirmed by: Jeffrey Scott MD 18-Jul-2019 18:02:18
[2019-07-18] MEDS ORDERED: TRAMADOL HCL 50 MG TABLET PO PRN (18:04)
[2019-07-18] MEDS ORDERED: HYDRALAZINE HCL INJ/PF 20 MG/1 ML SDV IV PRN (18:09)
[2019-07-18] MEDS ORDERED: METOPROLOL TARTRATE PF/INJ 5 MG/5 ML SDV IV PRN (18:09)
--- NOTE | 2019-07-18 18:12 | PDOC H&P ---
History of Present Illness Admission Date/PCP: 07/18/19 13:16 TYRONE FLORES MD History of Present Illness: OSMAN VALERIO is a 68 year old female who is a resident of long-term with past medical history of hypertension, bilateral knee severe osteoarthritis complicated by bilateral knee gouty arthritis with chronic bilateral knee effusions, ambulatory dysfunction, dementia, chronic diarrhea, who was sent from long-term after routine lab found elevated white blood cells and suspicion of sepsis was raised. On my encounter patient comfortably resting in bed, in no apparent distress, alert and oriented only to self, complaining of bilateral chronic knee pain, otherwise does not provide much history due to dementia, denies any fever, chills, shortness of breath, chest pain, nausea, diarrhea, constipation or any urinary symptoms. In ED was found to have leukocytosis, thrombocytosis, elevated creatinine, elevated potassium, elevated C-reactive protein. Hospitalist consulted for admission. Past Medical History Cardiac Medical History: Reports: Hyperlipidema, Hypertension Pulmonary Medical History: Reports: Asthma GI Medical History: Reports: Gastroesophageal Reflux Disease Psychiatric Medical History: Reports: Depression Denies: Dementia Past Surgical History Past Surgical History: Reports: Cholecystectomy, Orthopedic Surgery - left FA Fx Social History Smoking Status: Never Smoker Frequency of Alcohol Use: None Hx Recreational Drug Use: No Drugs: None Hx Prescription Drug Abuse: No - patient denies Family History Family History: Hypertension Parental Family History Reviewed: Yes Children Family History Reviewed: Yes Sibling(s) Family History Reviewed.: Yes Medication/Allergy Home Medications: Duloxetine HCl 60 mg PO Q12 06/01/19 Fluticasone Propionate [Flonase Nasal [place] 50 Mcg/[place] 16 gm] 1 spray NAREB BID 06/01/19 Gabapentin [Neurontin 400 mg Capsule] 400 mg PO Q12 06/01/19 Tramadol HCl [Ultram 50 mg Tablet] 50 mg PO Q6HP PRN 06/01/19 Verapamil HCl [Calan Sr 240 mg Tablet.sa] 240 mg PO DAILY 06/01/19 Magnesium Hydroxide [Milk of Magnesia 30 ml Udcup] 30 ml PO HSP PRN udc 06/11/19 Allergies/Adverse Reactions: No Known Allergies Allergy (Verified 01/28/16 13:17) Review of Systems Review of Systems: as per hpi Physical Exam Vital Signs: Temp Pulse Resp BP Pulse Ox 97.6 F 95 12 138/70 H 98 07/18/19 16:48 07/18/19 16:48 07/18/19 16:48 07/18/19 16:48 07/18/19 16:48 Intake & Output 07/17/19 07/18/19 07/19/19 06:59 06:59 06:59 Intake Total 1100 Balance 1100 Weight 59.8 kg General appearance: PRESENT: no acute distress, well-developed, well-nourished Head exam: PRESENT: atraumatic, normocephalic Respiratory exam: PRESENT: clear to auscultation stephany. ABSENT: rales, rhonchi, wheezes Cardiovascular exam: PRESENT: RRR. ABSENT: diastolic murmur, rubs, systolic murmur GI/Abdominal exam: PRESENT: normal bowel sounds, soft. ABSENT: distended, guarding, mass, organolmegaly, rebound, tenderness Extremities exam: PRESENT: full ROM, tenderness - Bilateral knee effusion and tenderness, no discharge or erythema.. ABSENT: calf tenderness, clubbing, pedal edema Neurological exam: PRESENT: alert, awake, oriented to person, CN II-XII grossly intact. ABSENT: motor sensory deficit Results Laboratory Results: 07/18/19 09:43 07/18/19 07/18/19 07/18/19 09:43 09:43 09:43 WBC 18.4 H RBC 3.24 L Hgb 9.1 L Hct 27.2 L MCV 84 MCH 28.0 MCHC 33.3 RDW 17.0 H Plt Count 723 H Seg Neutrophils % Not Reportable Carbonic Acid HCO3/H2CO3 Ratio ABG pH ABG pCO2 ABG pO2 ABG HCO3 ABG O2 Saturation ABG Base Excess FiO2 Sodium 133.1 L Potassium 5.7 H Chloride 95 L Carbon Dioxide 28 Anion Gap 10 BUN 46 H Creatinine 1.69 H Est GFR ( Amer) 36 L Glucose 122 H Lactic Acid 1.1 Uric Acid 4.5 Calcium 8.7 Total Bilirubin 0.4 AST 36 Alkaline Phosphatase 294 H C-Reactive Protein 388.4 H Total Protein 5.9 L Albumin 2.8 L Urine Color Urine Appearance Urine pH Ur Specific [place] Urine Protein Urine Glucose (UA) Urine Ketones Urine Blood 07/18/19 07/18/19 07/18/19 10:45 10:50 14:00 WBC RBC Hgb Hct MCV MCH MCHC RDW Plt Count Seg Neutrophils % Carbonic Acid 1.24 HCO3/H2CO3 Ratio 20:1 ABG pH 7.41 ABG pCO2 41.3 ABG pO2 68.1 L ABG HCO3 25.4 H ABG O2 Saturation 93.7 L ABG Base Excess 0.6 FiO2 ROOM AIR Sodium Potassium Chloride Carbon Dioxide Anion Gap BUN Creatinine Est GFR ( Amer) Glucose Lactic Acid 0.7 Uric Acid Calcium Total Bilirubin AST Alkaline Phosphatase C-Reactive Protein Total Protein Albumin Urine Color YELLOW Urine Appearance SLIGHTLY-CLOUDY Urine pH 5.0 Ur Specific [place] 1.013 Urine Protein 30 H Urine Glucose (UA) NEGATIVE Urine Ketones NEGATIVE Urine Blood SMALL H Impressions: Chest X-Ray 07/18/19 10:13 IMPRESSION: Low lung volumes with probable bibasilar atelectasis Assessment and Plan - Diagnosis (1) Leukocytosis Qualifiers: Leukocytosis type: unspecified Qualified Code(s): D72.829 - Elevated white blood cell count, unspecified Is this a current diagnosis for this admission?: Yes Plan: Neutrophilic leukocytosis this is likely due to p.o. steroids that patient has been taking for his gouty arthritis or underlying infection. Patient does not seem to have any sepsis. Chest x-ray low volume no infiltra tion. Given history of immunosuppression (on chronic steroids) and hypoxia on RA, will start on empiric IV antibiotics obtain blood culture. (2) Gouty arthritis of both knees Is this a current diagnosis for this admission?: Yes Plan: Chronic gouty arthritis of bilateral knee complicated by underlying osteoarthritis. Patient has bilateral swollen tenderness, no erythema, warmth or discharge. Patient on steroids chronically however seems to be not very active effective. CRP 388. Uric acid 4.5. We will start on colchicine and continue steroids. Patient is to follow-up with rheumatology for severe underlying gouty arthritis. (3) LENIN (acute kidney injury) Is this a current diagnosis for this admission?: Yes Plan: Likely due to combination of prerenal and chronic NSAID use. Patient home meds as naproxen 500. Presented with creatinine of 1.69. Cautious volume resuscitation guided by volume status, monitor electrolytes and replace as needed. Avoid nephrotoxic meds. BMP tomorrow. If no improvement will consult nephrology. (4) Dementia Qualifiers: Dementia type: unspecified type Dementia behavioral disturbance: without behavioral disturbance Qualified Code(s): F03.90 - Unspecified dementia without behavioral disturbance Is this a current diagnosis for this admission?: Yes Plan: Continue supportive measures. Restart home meds. (5) Hypoxia Is this a current diagnosis for this admission?: Yes Plan: No clear reason except for low lung volumes likely atelectasis. Patient denies history of COPD or CHF. Does not seem volume overloaded. We will start on duo nebs, PRN BiPAP, flutter valve and incentive spirometry. (6) Sepsis Is this a current diagnosis for this admission?: Yes Plan: Ruled out. Vitals WNL except for hypoxia which could be explained by atelectasis. Neutrophilic leukocytosis likely due to chronic steroid use. Lactic acid WNL. (7) Chronic diarrhea Is this a current diagnosis for this admission?: Yes Plan: Resume home meds. Monitor vital status and electrolytes, replace as needed. Outpatient gastroenterology and PCP follow-up. (8) Depression Is this a current diagnosis for this admission?: Yes Plan: Denies any suicidal or homicidal ideation. Restart home meds. Outpatient PCP and psychiatry follow-up.
[2019-07-18] MEDS ORDERED: SODIUM POLYSTYRENE SULFONATE 15 GM/60 ML PO ONE (18:30)
[2019-07-18] MEDS: NORMAL SALINE 1000 ML 1,000 ML IV PRN (18:57)
[2019-07-18] MEDS: IPRATROPIUM/ALBUTEROL 0.5-2.5 MG/3 ML AMPUL NEB SCH (20:13)
[2019-07-18] MEDS: HEPARIN SOD (PORCINE) 5,000 UNIT/ML 1 ML VIAL SUBCUT SCH (21:08)
[2019-07-18] MEDS: DULOXETINE HCL 30 MG CAPSULE.DR PO SCH (21:09)
[2019-07-18] MEDS: FAMOTIDINE 20 MG TABLET PO SCH (21:09)
[2019-07-18] MEDS: GABAPENTIN 400 MG CAPSULE PO SCH (21:09)
[2019-07-18] MEDS ORDERED: (PENDING PHARMACY ID) (Duloxetine Hcl [Duloxetine Hcl] 60 MG) PO SCH (22:00)
[2019-07-19 05:18] LABS: HEMATOCRIT 27.3 % (36.0-47.0); HEMOGLOBIN 9.1 g/dL (12.0-15.5); MEAN CORPUSCULAR HEMOGLOBIN 27.5 pg (27.0-33.4); MEAN CORPUSCULAR HGB CONC 33.2 g/dL (32.0-36.0); MEAN CORPUSCULAR VOLUME 83 fl (80-97); PLATELET COUNT 622 10^3/uL (150-450); RED BLOOD COUNT 3.29 10^6/uL (3.72-5.28); RED CELL DISTRIBUTION WIDTH 17.1 % (11.5-14.0); WHITE BLOOD COUNT 12.5 10^3/uL (4.0-10.5)
[2019-07-19 05:32] LABS: ALBUMIN 2.7 g/dL (3.5-5.0); ALKALINE PHOSPHATASE 283 U/L (38-126); ANION GAP 12 (5-19); ASPARTATE AMINO TRANSFERASE 29 U/L (14-36); BILIRUBIN,DIRECT 0.4 mg/dL (0.0-0.4); BILIRUBIN,TOTAL 0.4 mg/dL (0.2-1.3); BLOOD UREA NITROGEN 44 mg/dL (7-20); CALCIUM 8.7 mg/dL (8.4-10.2); CARBON DIOXIDE 24 mmol/L (22-30); CHLORIDE 102 mmol/L (98-107); GLUCOSE 137 mg/dL (75-110); POTASSIUM 5.2 mmol/L (3.6-5.0); TOTAL PROTEIN 5.8 g/dL (6.3-8.2)
[2019-07-19] MEDS: HEPARIN SOD (PORCINE) 5,000 UNIT/ML 1 ML VIAL SUBCUT SCH ×3 (05:59→23:38)
[2019-07-19] MEDS: PIPERACILLIN SODIUM/TAZOBACTAM 4.5 GM in NORMAL SALINE 100 ML IV SCH ×3 (05:59→17:50)
[2019-07-19] MEDS: NORMAL SALINE 1000 ML 1,000 ML IV PRN ×2 (06:05→20:15)
[2019-07-19 06:14] LABS: ABSOLUTE LYMPHOCYTES# (MANUAL) 0.3 10^3/uL (0.5-4.7); BASOPHILS % (MANUAL) 0 % (0-2); EOSINOPHILS % (MANUAL) 0 % (0-6); LYMPHOCYTES % (MANUAL) 2 % (13-45); MONOCYTES % (MANUAL) 0 % (3-13); SEGMENTED NEUTROPHILS % (MAN) 98 % (42-78); TOTAL CELLS COUNTED 100
[2019-07-19 06:15] LABS: ANISOCYTOSIS 1+; OVALOCYTES 1+; PLATELET COMMENT ADEQUATE; POIKILOCYTOSIS 1+; SCHISTOCYTES SLIGHT; TEAR DROP CELLS SLIGHT; TOXIC GRANULATION SLIGHT
[2019-07-19] MEDS ORDERED: SODIUM POLYSTYRENE SULFONATE 15 GM/60 ML PO ONE (08:00)
[2019-07-19] MEDS: IPRATROPIUM/ALBUTEROL 0.5-2.5 MG/3 ML AMPUL NEB SCH ×3 (08:27→20:03)
[2019-07-19] MEDS: GABAPENTIN 400 MG CAPSULE PO SCH ×2 (09:39→23:37)
[2019-07-19] MEDS: FAMOTIDINE 20 MG TABLET PO SCH ×2 (09:39→23:38)
[2019-07-19] MEDS: DULOXETINE HCL 30 MG CAPSULE.DR PO SCH ×2 (09:39→23:37)
[2019-07-19] MEDS ORDERED: VERAPAMIL HCL 240 MG TABLET.SA PO SCH (10:00)
[2019-07-19] MEDS ORDERED: FLUTICASONE NASAL SPRAY 50 MCG/SPRY 120 SPRAY/16 GM NAREB SCH (10:00)
--- NOTE | 2019-07-19 13:36 | PDOC PROGRESS REPORT ---
Subjective Progress Note for:: 07/19/19 Subjective:: OSMAN VALERIO is a 68 year old female who is a resident of [facility] with past medical history of hypertension, bilateral knee severe osteoarthritis complicated by bilateral knee gouty arthritis with chronic bilateral knee effusions, ambulatory dysfunction, dementia, chronic diarrhea, who was sent from [facility] after routine lab found elevated white blood cells and suspicion of sepsis was raised. On my encounter patient comfortably resting in bed, in no apparent distress, alert and oriented only to self, complaining of bilateral chronic knee pain, otherwise does not provide much history due to dementia, denies any fever, chills, shortness of breath, chest pain, nausea, diarrhea, constipation or any urinary symptoms. In ED was found to have leukocytosis, thrombocytosis, elevated creatinine, elevated potassium, elevated C-reactive protein. Hospitalist consulted for admission. 07/19/2019. No acute events overnight. Alert and oriented x3 no apparent distress, reporting moderate improvement of bilateral lower extremity pain, p.o. tolerant, has had one bowel movement, denies any fever, chills, nausea, vomiting, chest pain or any shortness of breath. Reason For Visit: LENIN,ACUTE GOUTY FACE, LEUKOCYTOSIS Physical Exam Vital Signs: Temp Pulse Resp BP Pulse Ox 97.4 F 97 16 149/67 H 99 07/19/19 12:00 07/19/19 12:00 07/19/19 12:00 07/19/19 12:00 07/19/19 12:00 Intake & Output 07/18/19 07/19/19 07/20/19 06:59 06:59 07:59 Intake Total 2400 120 Balance 2400 120 Weight 61.9 kg General appearance: PRESENT: no acute distress, well-developed, well-nourished Head exam: PRESENT: atraumatic, normocephalic Respiratory exam: PRESENT: clear to auscultation stephany. ABSENT: rales, rhonchi, wheezes Cardiovascular exam: PRESENT: RRR. ABSENT: diastolic murmur, rubs, systolic murmur GI/Abdominal exam: PRESENT: normal bowel sounds, soft. ABSENT: distended, guarding, mass, organolmegaly, rebound, tenderness Extremities exam: PRESENT: full ROM, tenderness - Bilateral knee swelling, medial aspect tenderness, no erythema or discharge.. ABSENT: calf tenderness, clubbing, pedal edema Neurological exam: PRESENT: alert, awake, oriented to person, oriented to place, CN II-XII grossly intact. ABSENT: motor sensory deficit Skin exam: PRESENT: dry, intact, warm. ABSENT: cyanosis, rash Results Laboratory Results: 07/19/19 04:36 07/19/19 04:36 07/18/19 07/18/19 07/18/19 14:00 17:19 17:19 WBC RBC Hgb Hct MCV MCH MCHC RDW Plt Count Seg Neutrophils % Sodium 133.6 L Potassium 5.3 H Chloride 100 Carbon Dioxide 23 Anion Gap 11 BUN 40 H Creatinine 1.35 H Est GFR ( Amer) 47 L Glucose 130 H Lactic Acid 0.7 1.0 Calcium 8.7 Total Bilirubin AST Alkaline Phosphatase Total Protein Albumin 07/19/19 07/19/19 04:36 04:36 WBC 12.5 H RBC 3.29 L Hgb 9.1 L Hct 27.3 L MCV 83 MCH 27.5 MCHC 33.2 RDW 17.1 H Plt Count 622 H Seg Neutrophils % Not Reportable Sodium 137.6 Potassium 5.2 H Chloride 102 Carbon Dioxide 24 Anion Gap 12 BUN 44 H Creatinine 1.06 Est GFR ( Amer) > 60 Glucose 137 H Lactic Acid Calcium 8.7 Total Bilirubin 0.4 AST 29 Alkaline Phosphatase 283 H Total Protein 5.8 L Albumin 2.7 L Impressions: Chest X-Ray 07/18/19 10:13 IMPRESSION: Low lung volumes with probable bibasilar atelectasis Assessment and Plan - Diagnosis (1) Leukocytosis Qualifiers: Leukocytosis type: unspecified Qualified Code(s): D72.829 - Elevated white blood cell count, unspecified Is this a current diagnosis for this admission?: Yes Plan: Moderate improvement. Cultures negative x24 hours. UA negative. Presented with neutrophilic leukocytosis this is likely due to p.o. steroids that patient has been taking for his gouty arthritis or underlying infection. Patient does not seem to have any sepsis. Chest x-ray low volume no infiltration. Given history of immunosuppression (on chronic steroids) and hypoxia on RA, will start on empiric IV antibiotics obtain blood culture. Day 2 IV antibiotics. Day 2 IV Zosyn. (2) Gouty arthritis of both knees Is this a current diagnosis for this admission?: Yes Plan: Moderate improvement since being started on colchicine. Chronic gouty arthritis of bilateral knee with frequent flares complicated by underlying osteoarthritis. Patient has bilateral swollen tenderness, no erythema, warmth or discharge. Patient on steroids chronically however seems to be not very active effective. CRP 388. Uric acid 4.5. Was given 1 dose of 1.6 mg colchicine followed by 0.6 mg 1 hour later on the first day. Continue colchicine 0.6 mg p.o. daily until flare is resolved. Resume prednisone if indicated. Avoid NSAIDs due to history of CKD. Patient is to follow-up with rheumatology for severe underlying gouty arthritis. (3) LENIN (acute kidney injury) Is this a current diagnosis for this admission?: Yes Plan: Resolved. Likely due to combination of prerenal and chronic NSAID use. Patient home meds as naproxen 500. Presented with creatinine of 1.69. Avoid nephrotoxic meds. Monitor volume status and electrolytes. Replace as needed. (4) Dementia Qualifiers: Dementia type: unspecified type Dementia behavioral disturbance: without behavioral disturbance Qualified Code(s): F03.90 - Unspecified dementia without behavioral disturbance Is this a current diagnosis for this admission?: Yes Plan: Continue supportive measures. Restart home meds. (5) Hypoxia Is this a current diagnosis for this admission?: Yes Plan: Resolved. SPO2 WNL on RA. No clear reason except for low lung volumes likely atelectasis. Patient denies history of COPD or CHF. Does not seem volume overloaded. We will start on duo nebs, PRN BiPAP, flutter valve and incentive spirometry. (6) Sepsis Is this a current diagnosis for this admission?: Yes Plan: Ruled out. Vitals WNL except for hypoxia which could be explained by atelectasis. Neutrophilic leukocytosis likely due to chronic steroid use. Lactic acid WNL. (7) Chronic diarrhea Is this a current diagnosis for this admission?: Yes Plan: Resume home meds. Monitor vital status and electrolytes, replace as needed. Outpatient gastroenterology and PCP follow-up. (8) Depression Is this a current diagnosis for this admission?: Yes Plan: Denies any suicidal or homicidal ideation. Restart home meds. Outpatient PCP and psychiatry follow-up.
[2019-07-19] MEDS: OXYCODONE-ACETAMINOPHEN 5-325 MG TABLET PO PRN ×2 (14:20→23:37)
[2019-07-19] MEDS: COLCHICINE 0.6 MG TABLET PO SCH (18:29)
[2019-07-20] MEDS: PIPERACILLIN SODIUM/TAZOBACTAM 4.5 GM in NORMAL SALINE 100 ML IV SCH ×2 (00:30→06:01)
[2019-07-20 05:20] LABS: ABSOLUTE LYMPHOCYTES (AUTO) 1.2 10^3/uL (0.5-4.7); ABSOLUTE MONOCYTES (AUTO) 1.2 10^3/uL (0.1-1.4); BASOPHILS % (AUTO) 0.3 % (0-2); HEMATOCRIT 26.3 % (36.0-47.0); HEMOGLOBIN 8.8 g/dL (12.0-15.5); LYMPHOCYTES % (AUTO) 8.9 % (13-45); MEAN CORPUSCULAR HEMOGLOBIN 27.7 pg (27.0-33.4); MEAN CORPUSCULAR HGB CONC 33.4 g/dL (32.0-36.0); MEAN CORPUSCULAR VOLUME 83 fl (80-97); MONOCYTES % (AUTO) 8.7 % (3-13); PLATELET COUNT 669 10^3/uL (150-450); RED BLOOD COUNT 3.16 10^6/uL (3.72-5.28); SEGMENTED NEUTROPHILS % (AUTO) 82.1 % (42-78); TOTAL CELLS COUNTED % (AUTO) 100 %; WHITE BLOOD COUNT 13.5 10^3/uL (4.0-10.5)
[2019-07-20 05:44] LABS: ANION GAP 11 (5-19); BLOOD UREA NITROGEN 32 mg/dL (7-20); CALCIUM 8.1 mg/dL (8.4-10.2); CARBON DIOXIDE 26 mmol/L (22-30); CHLORIDE 104 mmol/L (98-107); GLUCOSE 89 mg/dL (75-110); POTASSIUM 3.3 mmol/L (3.6-5.0)
[2019-07-20] MEDS: HEPARIN SOD (PORCINE) 5,000 UNIT/ML 1 ML VIAL SUBCUT SCH ×3 (06:01→21:50)
[2019-07-20] MEDS: IPRATROPIUM/ALBUTEROL 0.5-2.5 MG/3 ML AMPUL NEB SCH ×2 (08:19→19:42)
[2019-07-20] MEDS ORDERED: AMLODIPINE BESYLATE 5 MG TABLET PO SCH (10:00)
[2019-07-20] MEDS ORDERED: GUAIFENESIN/CODEINE PHOS 100-10 MG/ 5 ML UDC PO PRN (10:18)
[2019-07-20] MEDS ORDERED: VANCOMYCIN HCL 0 MG in DEXTROSE 5%-WATER 250 ML IV NR (10:30)
[2019-07-20] MEDS: OXYCODONE-ACETAMINOPHEN 5-325 MG TABLET PO PRN ×2 (11:04→18:25)
[2019-07-20] MEDS: FAMOTIDINE 20 MG TABLET PO SCH ×2 (11:04→21:50)
[2019-07-20] MEDS: DULOXETINE HCL 30 MG CAPSULE.DR PO SCH ×2 (11:04→21:50)
[2019-07-20] MEDS: GABAPENTIN 400 MG CAPSULE PO SCH ×2 (11:04→21:50)
[2019-07-20] MEDS ORDERED: GUAIFENESIN/CODEINE PHOS 100-10 MG/ 5 ML UDC PO ONE (11:30)
[2019-07-20] MEDS: COLCHICINE 0.6 MG TABLET PO SCH (11:54)
--- NOTE | 2019-07-20 12:23 | PDOC PROGRESS REPORT ---
Subjective Progress Note for:: 07/20/19 Subjective:: OSMAN VALERIO is a 68 year old female who is a resident of [facility] with past medical history of hypertension, bilateral knee severe osteoarthritis complicated by bilateral knee gouty arthritis with chronic bilateral knee effusions, ambulatory dysfunction, dementia, chronic diarrhea, who was sent from [facility] after routine lab found elevated white blood cells and suspicion of sepsis was raised. On my encounter patient comfortably resting in bed, in no apparent distress, alert and oriented only to self, complaining of bilateral chronic knee pain, otherwise does not provide much history due to dementia, denies any fever, chills, shortness of breath, chest pain, nausea, diarrhea, constipation or any urinary symptoms. In ED was found to have leukocytosis, thrombocytosis, elevated creatinine, elevated potassium, elevated C-reactive protein. Hospitalist consulted for admission. 07/19/2019. No acute events overnight. Alert and oriented x3 no apparent distress, reporting moderate improvement of bilateral lower extremity pain, p.o. tolerant, has had one bowel movement, denies any fever, chills, nausea, vomiting, chest pain or any shortness of breath. 07/20/2019. Moderate improvement of bilateral lower extremity pain, patient stating that she was able to walk to the restroom with no significant pain, complaining of cough today, denies any fever, chills, nausea, vomiting, diarrhea, constipation or any urinary symptoms. Alert and oriented x1. Cooperative and interactive. Reason For Visit: LENIN,ACUTE GOUTY FACE, LEUKOCYTOSIS Physical Exam Vital Signs: Temp Pulse Resp BP Pulse Ox 98.6 F 89 16 189/75 H 96 07/20/19 07:25 07/20/19 08:19 07/20/19 08:19 07/20/19 07:25 07/20/19 08:19 Intake & Output 07/19/19 07/20/19 07/21/19 05:59 06:59 06:59 Intake Total Balance Weight General appearance: PRESENT: no acute distress, well-developed, well-nourished Head exam: PRESENT: atraumatic, normocephalic Respiratory exam: PRESENT: clear to auscultation stephany. ABSENT: rales, rhonchi, wheezes Cardiovascular exam: PRESENT: RRR. ABSENT: diastolic murmur, rubs, systolic murmur Pulses: PRESENT: normal dorsalis pedis pul GI/Abdominal exam: PRESENT: normal bowel sounds, soft. ABSENT: distended, guarding, mass, organolmegaly, rebound, tenderness Extremities exam: PRESENT: full ROM, other - Bilateral knee arthritic changes, no erythema or swelling, mild medial aspect tenderness.. ABSENT: calf tenderness, clubbing, pedal edema Neurological exam: PRESENT: alert, awake, oriented to person, oriented to place, oriented to time, oriented to situation, CN II-XII grossly intact. ABSENT: motor sensory deficit Results Laboratory Results: 07/20/19 04:47 07/20/19 04:47 07/20/19 07/20/19 07/20/19 04:47 04:47 04:47 WBC 13.5 H RBC 3.16 L Hgb 8.8 L Hct 26.3 L MCV 83 MCH 27.7 MCHC 33.4 RDW 17.0 H Plt Count 669 H Seg Neutrophils % 82.1 H Sodium 140.8 Potassium 3.3 L Chloride 104 Carbon Dioxide 26 Anion Gap 11 BUN 32 H Creatinine 0.95 Est GFR ( Amer) > 60 Glucose 89 Calcium 8.1 L Magnesium 1.9 C-Reactive Protein 189.4 H Impressions: Chest X-Ray 07/18/19 10:13 IMPRESSION: Low lung volumes with probable bibasilar atelectasis Assessment and Plan - Diagnosis (1) Leukocytosis Qualifiers: Leukocytosis type: unspecified Qualified Code(s): D72.829 - Elevated white blood cell count, unspecified Is this a current diagnosis for this admission?: Yes Plan: Moderate improvement. Cultures negative x24 hours. UA negative. Blood culture positive for gram-positive cocci in clusters pending sensitivity. Presented with neutrophilic leukocytosis this is likely due to p.o. steroids that patient has been taking for his gouty arthritis or underlying infection. Patient does not seem to have any sepsis. Chest x-ray low volume no infiltration. Given history of immunosuppression (on chronic steroids) and hypoxia on RA, will start on empiric IV antibiotics obtain blood culture. Day 3 IV antibiotics. Day 1 IV vancomycin. Received 2 days of IV Zosyn. Zosyn switched to vancomycin as patient has blood cultures positive for gram-positive cocci in clusters. Follow-up culture. (2) Gram-positive bacteremia Is this a current diagnosis for this admission?: Yes Plan: Blood culture on admission 1/ growing gram-positive cocci in clusters. Not sure if this contamination. Repeat blood cultures pending. Switch Zosyn with vancomycin. Day 3 IV antibiotics. Day 1 IV vancomycin. Received 2 days of IV Zosyn. Follow-up blood culture. (3) Gouty arthritis of both knees Is this a current diagnosis for this admission?: Yes Plan: Moderate improvement since being started on colchicine. CRP 189 Down from 388 on admission. Chronic gouty arthritis of bilateral knee with frequent flares complicated by underlying osteoarthritis. Patient has bilateral swollen knee with medial aspect tenderness, no erythema, warmth or discharge. Patient on steroids chronically however seems to be not very active effective. CRP 388. Uric acid 4.5. Received 1.6 mg colchicine followed by 0.6 mg 1 hour later on the first day. Continue colchicine 0.6 mg p.o. daily until flare is resolved. Resume prednisone if indicated. Avoid NSAIDs due to history of CKD. Patient will need to be started on allopurinol once acute gouty flare is resolved. Patient is to follow-up with rheumatology for severe underlying gouty arthritis. (4) LENIN (acute kidney injury) Is this a current diagnosis for this admission?: Yes Plan: Resolved. Likely due to combination of prerenal and chronic NSAID use. Patient home meds as naproxen 500. Presented with creatinine of 1.69. Avoid nephrotoxic meds. Monitor volume status and electrolytes. Replace as needed. (5) Dementia Qualifiers: Dementia type: unspecified type Dementia behavioral disturbance: without behavioral disturbance Qualified Code(s): F03.90 - Unspecified dementia without behavioral disturbance Is this a current diagnosis for this admission?: Yes Plan: Continue supportive measures. Restart home meds. (6) Hypoxia Is this a current diagnosis for this admission?: Yes Plan: Resolved. SPO2 WNL on RA. No clear reason except for low lung volumes likely atelectasis. Patient denies history of COPD or CHF. Does not seem volume overloaded. We will start on duo nebs, PRN BiPAP, flutter valve and incentive spirometry. (7) Sepsis Is this a current diagnosis for this admission?: Yes Plan: Ruled out. Vitals WNL except for hypoxia which could be explained by atelectasis. Neutrophilic leukocytosis likely due to chronic steroid use. Lactic acid WNL. (8) Chronic diarrhea Is this a current diagnosis for this admission?: Yes Plan: Resume home meds. Monitor vital status and electrolytes, replace as needed. Outpatient gastroenterology and PCP follow-up. (9) Depression Is this a current diagnosis for this admission?: Yes Plan: Denies any suicidal or homicidal ideation. Restart home meds. Outpatient PCP and psychiatry follow-up.
[2019-07-20] MEDS: AMLODIPINE BESYLATE 5 MG TABLET PO SCH (13:31)
[2019-07-20] MEDS: VANCOMYCIN HCL 1,250 MG in DEXTROSE 5%-WATER 250 ML IV SCH (18:01)
[2019-07-20] MEDS: TEMAZEPAM 7.5 MG CAPSULE PO PRN (21:50)
[2019-07-21] MEDS: OXYCODONE-ACETAMINOPHEN 5-325 MG TABLET PO PRN ×2 (06:11→22:12)
[2019-07-21] MEDS: HEPARIN SOD (PORCINE) 5,000 UNIT/ML 1 ML VIAL SUBCUT SCH ×3 (06:12→22:13)
[2019-07-21] MEDS: IPRATROPIUM/ALBUTEROL 0.5-2.5 MG/3 ML AMPUL NEB SCH ×2 (08:13→20:50)
[2019-07-21] MEDS: FAMOTIDINE 20 MG TABLET PO SCH ×2 (10:17→22:10)
[2019-07-21] MEDS: AMLODIPINE BESYLATE 5 MG TABLET PO SCH (10:17)
[2019-07-21] MEDS: VANCOMYCIN HCL 1,250 MG in DEXTROSE 5%-WATER 250 ML IV SCH (10:17)
[2019-07-21] MEDS: GABAPENTIN 400 MG CAPSULE PO SCH ×2 (10:17→22:10)
[2019-07-21] MEDS: DULOXETINE HCL 30 MG CAPSULE.DR PO SCH ×2 (10:17→22:10)
[2019-07-21] MEDS: COLCHICINE 0.6 MG TABLET PO SCH (10:23)
[2019-07-21] MEDS ORDERED: AMLODIPINE BESYLATE 5 MG TABLET PO SCH (11:30)
[2019-07-21] MEDS ORDERED: INFLUENZA QUAD (6MOS+) 2019-20 VAC 0.5 ML SYR IM ONE (12:15)
--- NOTE | 2019-07-21 17:24 | PDOC PROGRESS REPORT ---
Subjective Progress Note for:: 07/21/19 Subjective:: Patient still complains of some pain in her right knee but was able to ambulate on it with some help today. Denies any fever or chills Reason For Visit: LENIN,ACUTE GOUTY FACE, LEUKOCYTOSIS Physical Exam Vital Signs: Temp Pulse Resp BP Pulse Ox 98.3 F 109 H 17 121/72 98 07/21/19 15:40 07/21/19 15:40 07/21/19 15:40 07/21/19 15:40 07/21/19 15:40 Intake & Output 07/20/19 07/21/19 07/22/19 06:59 06:59 06:59 Intake Total 1715 970 Balance 1715 970 Weight 61.1 kg General appearance: PRESENT: no acute distress, cooperative Neck exam: ABSENT: JVD Respiratory exam: PRESENT: clear to auscultation stephany, unlabored. ABSENT: tachypnea, wheezes Cardiovascular exam: PRESENT: RRR, +S1, +S2. ABSENT: tachycardia GI/Abdominal exam: PRESENT: soft. ABSENT: rebound, rigid, tenderness Musculoskeletal exam: PRESENT: tenderness - Tenderness noted over right knee without any significant redness and only very mild warmth. Neurological exam: PRESENT: alert, awake, other - Often repeats what she says several times. ABSENT: aphasic Results Laboratory Results: 07/20/19 04:47 07/20/19 04:47 Impressions: Chest X-Ray 07/18/19 10:13 IMPRESSION: Low lung volumes with probable bibasilar atelectasis Assessment and Plan - Diagnosis (1) Leukocytosis Qualifiers: Leukocytosis type: unspecified Qualified Code(s): D72.829 - Elevated white blood cell count, unspecified Is this a current diagnosis for this admission?: Yes Plan: Leukocytosis likely secondary to her chronic steroid use for her underlying gout arthritis. However, currently on antibiotics due to positive blood cultures which I suspect were contamination. Day 4 IV antibiotics. Day 2 IV vancomycin. Received 2 days of IV Zosyn. Zosyn switched to vancomycin as patient has blood cultures positive for gram-positive cocci in clusters. (2) Gouty arthritis of both knees Is this a current diagnosis for this admission?: Yes Plan: Pain in the left knee has resolved but her right knee is forging press lever tender. No e vidence of septic arthritis on examination. Has received colchicine load and will continue on colchicine daily. Tramadol as needed. Avoid NSAIDs given kidney disease. Patient is to follow-up with rheumatology for severe underlying gouty arthritis. (3) Gram-positive bacteremia Is this a current diagnosis for this admission?: Yes Plan: Blood culture on admission 1/2 growing gram-positive cocci in clusters. Highly suspect that this is a contaminant but will wait for repeat blood cultures to become negative after 48 hours before discharging. (4) LENIN (acute kidney injury) Is this a current diagnosis for this admission?: Yes Plan: Resolved. Avoid nephrotoxic meds. Monitor volume status and electrolytes. Replace as needed. (5) Dementia Qualifiers: Dementia type: unspecified type Dementia behavioral disturbance: without behavioral disturbance Qualified Code(s): F03.90 - Unspecified dementia without behavioral disturbance Is this a current diagnosis for this admission?: Yes Plan: Continue supportive measures. Restart home meds. (6) Hypoxia Is this a current diagnosis for this admission?: Yes Plan: Resolved. SPO2 WNL on RA. No clear reason except for low lung volumes likely atelectasis noted on CXR. incentive spirometry. - Time Time Spent with patient: Less than 15 minutes
[2019-07-21] MEDS: TEMAZEPAM 7.5 MG CAPSULE PO PRN (22:13)
[2019-07-22] MEDS: HEPARIN SOD (PORCINE) 5,000 UNIT/ML 1 ML VIAL SUBCUT SCH (05:14)
[2019-07-22 05:40] LABS: HEMATOCRIT 26.4 % (36.0-47.0); MEAN CORPUSCULAR VOLUME 83 fl (80-97); PLATELET COUNT 653 10^3/uL (150-450); RED BLOOD COUNT 3.19 10^6/uL (3.72-5.28); RED CELL DISTRIBUTION WIDTH 17.1 % (11.5-14.0); WHITE BLOOD COUNT 8.6 10^3/uL (4.0-10.5)
[2019-07-22 06:21] LABS: ABSOLUTE LYMPHOCYTES# (MANUAL) 2.6 10^3/uL (0.5-4.7); ABSOLUTE MONOCYTES # (MANUAL) 0.3 10^3/uL (0.1-1.4); BAND NEUTROPHILS % (MANUAL) 1 % (3-5); BASOPHILS % (MANUAL) 1 % (0-2); EOSINOPHILS % (MANUAL) 3 % (0-6); LYMPHOCYTES % (MANUAL) 30 % (13-45); MONOCYTES % (MANUAL) 4 % (3-13); SEGMENTED NEUTROPHILS % (MAN) 59 % (42-78); TOTAL CELLS COUNTED 100
[2019-07-22 06:23] LABS: ANISOCYTOSIS 1+; PLATELET COMMENT INCREASED; POLYCHROMASIA SLIGHT
[2019-07-22 06:24] LABS: PROMYELOCYTES % (MANUAL) 2 % (0)
[2019-07-22] MEDS: IPRATROPIUM/ALBUTEROL 0.5-2.5 MG/3 ML AMPUL NEB SCH (08:39)
[2019-07-22] MEDS: AMLODIPINE BESYLATE 5 MG TABLET PO SCH (09:26)
[2019-07-22] MEDS: GABAPENTIN 400 MG CAPSULE PO SCH (09:26)
[2019-07-22] MEDS: COLCHICINE 0.6 MG TABLET PO SCH (09:26)
[2019-07-22] MEDS: FAMOTIDINE 20 MG TABLET PO SCH (09:26)
[2019-07-22] MEDS: VANCOMYCIN HCL 1,250 MG in DEXTROSE 5%-WATER 250 ML IV SCH (09:27)
[2019-07-22] MEDS: DULOXETINE HCL 30 MG CAPSULE.DR PO SCH (09:27)
[2019-07-22] MEDS: OXYCODONE-ACETAMINOPHEN 5-325 MG TABLET PO PRN (09:28)
--- NOTE | 2019-07-22 11:16 | PDOC TRANSFER SUMMARY ---
Impression - Admit/DC Date/PCP Admission Date/Primary Care Provider: 07/18/19 13:16 TYRONE FLORES MD Discharge Date: 07/22/19 - Discharge Diagnosis (1) Leukocytosis Is this a current diagnosis for this admission?: Yes (2) Gouty arthritis of both knees Is this a current diagnosis for this admission?: Yes (3) Gram-positive bacteremia Is this a current diagnosis for this admission?: Yes (4) LENIN (acute kidney injury) Is this a current diagnosis for this admission?: Yes (5) Dementia Is this a current diagnosis for this admission?: Yes (6) Hypoxia Is this a current diagnosis for this admission?: Yes (7) Atelectasis Is this a current diagnosis for this admission?: Yes - Additional Information Referrals: TYRONE FLORES MD [Primary Care Provider] - Follow up as needed Home Medications: Duloxetine HCl 60 mg PO Q12 06/01/19 Fluticasone Propionate [Flonase Nasal [place] 50 Mcg/[place] 16 gm] 1 spray NAREB BID 06/01/19 Gabapentin [Neurontin 400 mg Capsule] 400 mg PO Q12 06/01/19 Tramadol HCl [Ultram 50 mg Tablet] 50 mg PO Q6HP PRN 06/01/19 Verapamil HCl [Calan Sr 240 mg Tablet.sa] 240 mg PO DAILY 06/01/19 Magnesium Hydroxide [Milk of Magnesia 30 ml Udcup] 30 ml PO HSP PRN udc 06/11/19 Acetaminophen [Tylenol 325 mg Tablet] 325 mg PO Q4HP PRN tablet 07/22/19 Colchicine [Colcrys 0.6 mg Tablet] 0.6 mg PO DAILY tablet 07/22/19 History of Present Illiness History of Present Illness: OSMAN VALERIO is a 68 year old female who is a resident of [facility] with past medical history of hypertension, bilateral knee severe osteoarthritis complicated by bilateral knee gouty arthritis with chronic bilateral knee effusions, ambulatory dysfunction, dementia, chronic diarrhea, who was sent from [facility] after routine lab found elevated white blood cells and suspicion of sepsis was raised. On my encounter patient comfortably resting in bed, in no apparent distress, alert and oriented only to self, complaining of bilateral chronic knee pain, otherwise does not provide much history due to dementia, denies any fever, chills, shortness of breath, chest pain, nausea, diarrhea, constipation or any urinary symptoms. In ED was found to have leukocytosis, thrombocytosis, elevated creatinine, elevated potassium, elevated C-reactive protein. Hospitalist consulted for admission. Hospital Course Hospital Course: Patient was admitted for evaluation of leukocytosis of 18. Vital signs revealed hemodynamic stability. Of note, patient was not septic. Patient was admitted and blood cultures were obtained. Chest x-ray was performed which only showed a very mild area of atelectasis. It was documented that patient demonstrated mild hypoxia on the first day but this spontaneously resolved and patient has been tolerating well on room air with SPO2 in the mid to high 90s pretty much since admission. Initial episode may have been from some atelectasis. Was no evidence of pneumonia. Patient has been afebrile throughout stay. Urinalysis performed was negative for any UTI. Examination of patient's knee effusions and knee pain demonstrated minimal tenderness in the left knee and tenderness of the right knee but without any significant rubor/erythema or hotness to suggest septic arthritis. Patient's right knee pain and swelling is secondary to her gout arthritis which was diagnosed on her recent visit earlier this year through arthrocentesis. Patient has been continued on physical therapy and has done well and has been giving colchicine, tramadol for her pain. Patient did have an LENIN upon admission with creatinine of 1.6 and as such NSAIDs were avoided but her kidney function has improved after receiving IV fluids and her last creatinine was 0.95. Patient's leukocytosis is believed to be secondary to inflammatory process from her gout arthritis and if patient was on prednisone prior to hospitalization that could also account for it. As of this moment, there is no sign of infection. Notes that patient did have a positive blood culture in 1 out of 4 blood culture bottles and received vancomycin for a few days but this has been stopped as the blood culture resulted to be staph epidermidis which was thought to be a contamination. All other blood cultures including repeat blood cultures have all been negative for over 48 hours. Please ensure patient follows up with a medicaid biller for further care. Physical Exam Vital Signs: Temp Pulse Resp BP Pulse Ox 98.0 F 98 18 122/54 L 96 07/21/19 23:43 07/22/19 08:40 07/22/19 08:40 07/21/19 23:43 07/22/19 08:40 Intake & Output 07/21/19 07/22/19 07/23/19 06:59 06:59 06:59 Intake Total 1715 1315 Balance 1715 1315 Weight 61.1 kg 60.3 kg General appearance: PRESENT: no acute distress, cooperative Neck exam: ABSENT: JVD Respiratory exam: PRESENT: clear to auscultation stephany Cardiovascular exam: PRESENT: +S1, +S2 GI/Abdominal exam: PRESENT: soft. ABSENT: tenderness Extremities exam: PRESENT: tenderness - Over right knee but without any significant erythema/rubor and only mild warmth. Has good range of motion., +1 edema Neurological exam: PRESENT: alert, awake Results Laboratory Results: WBC 8.6 10^3/uL (4.0-10.5) 07/22/19 04:58 RBC 3.19 10^6/uL (3.72-5.28) L 07/22/19 04:58 Hgb 9.0 g/dL (12.0-15.5) L 07/22/19 04:58 Hct 26.4 % (36.0-47.0) L 07/22/19 04:58 MCV 83 fl (80-97) 07/22/19 04:58 MCH 28.0 pg (27.0-33.4) 07/22/19 04:58 MCHC 34.0 g/dL (32.0-36.0) 07/22/19 04:58 RDW 17.1 % (11.5-14.0) H 07/22/19 04:58 Plt Count 653 10^3/uL (150-450) H 07/22/19 04:58 Lymph % (Auto) Not Reportable 07/22/19 04:58 Castro % (Auto) Not Reportable 07/22/19 04:58 Eos % (Auto) Not Reportable 07/22/19 04:58 Baso % (Auto) Not Reportable 07/22/19 04:58 Absolute Neuts (auto) Not Reportable 07/22/19 04:58 Absolute Lymphs (auto) Not Reportable 07/22/19 04:58 Absolute Monos (auto) Not Reportable 07/22/19 04:58 Absolute Eos (auto) Not Reportable 07/22/19 04:58 Absolute Basos (auto) Not Reportable 07/22/19 04:58 Total Counted 100 07/22/19 04:58 Seg Neutrophils % Not Reportable 07/22/19 04:58 Seg Neuts % (Manual) 59 % (42-78) 07/22/19 04:58 Band Neutrophils % 1 % (3-5) L 07/22/19 04:58 Lymphocytes % (Manual) 30 % (13-45) 07/22/19 04:58 Monocytes % (Manual) 4 % (3-13) 07/22/19 04:58 Eosinophils % (Manual) 3 % (0-6) 07/22/19 04:58 Basophils % (Manual) 1 % (0-2) 07/22/19 04:58 Promyelocytes % 2 % (0) H 07/22/19 04:58 Abs Neuts (Manual) 5.3 10^3/uL (1.7-8.2) 07/22/19 04:58 Abs Lymphs (Manual) 2.6 10^3/uL (0.5-4.7) 07/22/19 04:58 Abs Monocytes (Manual) 0.3 10^3/uL (0.1-1.4) 07/22/19 04:58 Absolute Eos (Manual) 0.3 10^3/uL (0.0-0.6) 07/22/19 04:58 Abs Basophils (Manual) 0.1 10^3/uL (0.0-0.2) 07/22/19 04:58 Toxic Granulation SLIGHT 07/19/19 04:36 Toxic Vacuolation PRESENT 07/18/19 09:43 Platelet Comment INCREASED 07/22/19 04:58 Polychromasia SLIGHT 07/22/19 04:58 Hypochromasia SLIGHT 07/18/19 09:43 Poikilocytosis 1+ 07/19/19 04:36 Anisocytosis 1+ 07/22/19 04:58 Tear Drop Cells SLIGHT 07/19/19 04:36 Ovalocytes 1+ 07/19/19 04:36 Schistocytes SLIGHT 07/19/19 04:36 PT 14.9 SEC (11.4-15.4) 07/18/19 09:43 INR 1.16 07/18/19 09:43 Carbonic Acid 1.24 mmol/L (1.05-1.35) 07/18/19 10:50 HCO3/H2CO3 Ratio 20:1 07/18/19 10:50 ABG pH 7.41 (7.35-7.45) 07/18/19 10:50 ABG pCO2 41.3 mmHg (35-45) 07/18/19 10:50 ABG pO2 68.1 mmHg (80-100) L 07/18/19 10:50 ABG HCO3 25.4 mmol/L (20-24) H 07/18/19 10:50 ABG Total CO2 26.6 mmol/L (21-25) H 07/18/19 10:50 ABG O2 Saturation 93.7 % (94-98) L 07/18/19 10:50 ABG Base Excess 0.6 mmol/L 07/18/19 10:50 FiO2 ROOM AIR 07/18/19 10:50 Sodium 140.8 mmol/L (137-145) 07/20/19 04:47 Potassium 3.3 mmol/L (3.6-5.0) L 07/20/19 04:47 Chloride 104 mmol/L (98-107) 07/20/19 04:47 Carbon Dioxide 26 mmol/L (22-30) 07/20/19 04:47 Anion Gap 11 (5-19) 07/20/19 04:47 BUN 32 mg/dL (7-20) H 07/20/19 04:47 Creatinine 0.95 mg/dL (0.52-1.25) 07/20/19 04:47 Est GFR ( Amer) > 60 (>60) 07/20/19 04:47 Est GFR (MDRD) Non-Af 58 (>60) L 07/20/19 04:47 Glucose 89 mg/dL (75-110) 07/20/19 04:47 Lactic Acid 1.0 mmol/L (0.7-2.1) 07/18/19 17:19 Uric Acid 4.5 mg/dL (2.5-7.5) 07/18/19 09:43 Calcium 8.1 mg/dL (8.4-10.2) L 07/20/19 04:47 Magnesium 1.9 mg/dL (1.6-2.3) 07/20/19 04:47 Total Bilirubin 0.4 mg/dL (0.2-1.3) 07/19/19 04:36 Direct Bilirubin 0.4 mg/dL (0.0-0.4) 07/19/19 04:36 Neonat Total Bilirubin Not Reportable 07/19/19 04:36 Neonat Direct Bilirubin Not Reportable 07/19/19 04:36 Neonat Indirect Bili Not Reportable 07/19/19 04:36 AST 29 U/L (14-36) 07/19/19 04:36 ALT 23 U/L (<35) 07/19/19 04:36 Alkaline Phosphatase 283 U/L (38-126) H 07/19/19 04:36 C-Reactive Protein 189.4 mg/L (<10.0) H 07/20/19 04:47 Total Protein 5.8 g/dL (6.3-8.2) L 07/19/19 04:36 Albumin 2.7 g/dL (3.5-5.0) L 07/19/19 04:36 Urine Color YELLOW 07/18/19 10:45 Urine Appearance SLIGHTLY-CLOUDY 07/18/19 10:45 Urine pH 5.0 (5.0-9.0) 07/18/19 10:45 Ur Specific [place] 1.013 07/18/19 10:45 Urine Protein 30 mg/dL (NEGATIVE) H 07/18/19 10:45 Urine Glucose (UA) NEGATIVE mg/dL (NEGATIVE) 07/18/19 10:45 Urine Ketones NEGATIVE mg/dL (NEGATIVE) 07/18/19 10:45 Urine Blood SMALL (NEGATIVE) H 07/18/19 10:45 Urine Nitrite (Reflex) NEGATIVE (NEGATIVE) 07/18/19 10:45 Urine Bilirubin NEGATIVE (NEGATIVE) 07/18/19 10:45 Urine Urobilinogen NEGATIVE mg/dL (<2.0) 07/18/19 10:45 Leukocyte Esterase Rfl NEGATIVE (NEGATIVE) 07/18/19 10:45 Urine Bacteria (Auto) TRACE /HPF 07/18/19 10:45 Urine WBC (Reflex) 2 /HPF 07/18/19 10:45 Squamous Epi Cells Auto <1 /HPF 07/18/19 10:45 Urine Mucus (Auto) OCC /LPF 07/18/19 10:45 Urine Ascorbic Acid NEGATIVE (NEGATIVE) 07/18/19 10:45 Impressions: Chest X-Ray 07/18/19 10:13 IMPRESSION: Low lung volumes with probable bibasilar atelectasis Plan Time Spent: Less than 30 Minutes Stroke Is this a Stroke Patient?: No Acute Heart Failure - Is this a Heart Failure Patient?: No
[2019-07-22 11:22] LABS: PATH REVIEW PATHOLOGIST REVIEWED
[2019-07-22 12:19] VITALS: BP 137/75
== END 2019-07-22 13:39 | DRG 815 ==
LOC: ER 09:35 → EH 13:16 → 4S 16:41
PROVIDERS: ADMIT Internal Medicine; ATTEND Internal Medicine
DX: D72.829 Elevated white blood cell count, unspecified (principal); N17.9 Acute kidney failure, unspecified; J98.11 Atelectasis; R78.81 Bacteremia; R78.9 Finding of unspecified substance, not normally found in blood; R09.02 Hypoxemia; I10 Essential (primary) hypertension; E78.00 Pure hypercholesterolemia, unspecified; K21.9 Gastro-esophageal reflux disease without esophagitis; M13.0 Polyarthritis, unspecified; K52.9 Noninfective gastroenteritis and colitis, unspecified; M1A.0620 Idiopathic chronic gout, left knee, without tophus (tophi); M1A.0610 Idiopathic chronic gout, right knee, without tophus (tophi); F32.9 Major depressive disorder, single episode, unspecified; F03.90 Unspecified dementia, unspecified severity, without behavioral disturbance, psychotic disturbance, mood disturbance, and anxiety; Z79.52 Long term (current) use of systemic steroids
CPT/HCPCS: 36415; 71045; 80048; 80053; 81001; 82803; 83605; 83735; 84550; 85025; 85610; 86140; 87040; 87077; 87186; 87804; 93005; 93010; 94640; 94667; 94668; 94799; 96361; 96365; 96375; 99285; J0610; J1100; J1644; J1885; J2543; J3370; J3490; J7030; J7050; J7060; J7620

== ENCOUNTER → 2019-12-01 | Outpatient (CLI) | payer MEDICARE, MEDICAID ==
--- NOTE | 2019-12-01 16:38 | RADIOLOGY REPORT (SQ) ---
EXAM DESCRIPTION: MRI RT LOWER JOINT WITHOUT IMAGES COMPLETED DATE/TIME: 12/01/2019 2:30 pm REASON FOR STUDY: M25.561 PAIN IN RIGHT KNEE M25.561 PAIN IN RIGHT KNEE COMPARISON: 2015. Knee radiographs from May. TECHNIQUE: Rightknee images acquired and stored on PACS. Multiplanar images include fat sensitive s equences as T1, water sensitive sequences as FST2 or STIR, cartilage sensitive sequences as FSPD, and gradient echo sequences. LIMITATIONS: None. FINDINGS: JOINT AND BURSAE: Relatively small knee joint effusion. BONE CORTEX AND MARROW: No alteration of signal to suggest marrow replacement. No worrisome bone lesi ons. No occult fracture. ACL: Intact. No degeneration or ganglion cyst. PCL: Intact. MCL: Intact. No periligamentous edema or fluid. LCL: Intact. No periligamentous edema or fluid. MEDIAL MENISCUS: No high-grade tear. Mild fraying along the free margin with slight extrusion. LATERAL MENISCUS: Extruded appearance. Irregular fraying and blunting along the free margin. MEDIAL COMPARTMENT: Chondral thinning particularly in the weight-bearing femoral condyle. Much of th is looks full-thickness to near full thickness with minimal subchondral cyst formation. LATERAL COMPARTMENT: Irregular chondral thinning throughout. There appears to be focal full-thicknes s to near full-thickness tibial cartilage loss with underlying marrow edema. PATELLA: Chondral thinning in the patella. This looks full-thickness in the medial facet. Mild subc hondral edema. EXTENSOR MECHANISM: Intact. Quadriceps and patella tendons normal. SOFT TISSUES: Mild popliteal cyst. Appropriate vascular flow voids. OTHER: No other significant finding. IMPRESSION: 1. Chondral lesions as described. All compartments. Grade 4 loss particularly in the lateral compar tment and patella. 2. Meniscus findings as above. No discrete high-grade tears but the medial and lateral menisci have an extruded appearance with other findings as noted. TECHNICAL DOCUMENTATION: JOB ID: [id number] 2010 [employer]- All Rights Reserved Reading location - IP/workstation name: [email or web address]
== END ==
LOC: RAD 13:40
PROVIDERS: ATTEND Orthopaedic Surgery
DX: M71.21 Synovial cyst of popliteal space [Baker], right knee (principal); M25.561 Pain in right knee

== ENCOUNTER → 2020-02-03 | Outpatient (CLI) | payer MEDICARE, MEDICAID ==
--- NOTE | 2020-02-03 16:20 | WOMENS IMAGING REPORT ---
EXAM DESCRIPTION: 3D SCREENING MAMMO BILAT IMAGES COMPLETED DATE/TIME: 02/03/2020 3:45 pm REASON FOR STUDY: Z12.31 ENCNTR SCREEN MAMMOGRAM FOR MALIGNANT NEOPLASM OF BREAST Z12.31 ENCNTR SCR EEN MAMMOGRAM FOR MALIGNANT NEOPLASM OF ELMO COMPARISON: 01/29/2019, 01/15/2018, 01/10/2017 EXAM PARAMETERS: Views: Standard craniocaudal and mediolateral oblique views of each breast recorded using digital acquisition and breast tomosynthesis. Read with the assistance of CAD. .[facility] - R2 [employer] Nurse Version 9.2 LIMITATIONS: None. FINDINGS: No suspicious masses, suspicious calcifications or architectural distortion. No areas of c oncern. IMPRESSION: NEGATIVE MAMMOGRAM. BIRADS 1. BREAST DENSITY: b. There are scattered areas of fibroglandular density. BIRAD: ASSESSMENT: 1 NEGATIVE RECOMMENDATION: ROUTINE SCREENING COMMENT: The patient has been notified of the results by letter per MQSA requirements. Additional no tification policies are in place for contacting patient with suspicious or incomplete findings. Quality ID #[id number]: The [employer] recommends an annual screening mammogram for women aged 40 years or over. This facility utilizes a reminder system to ensure that all patients receive reminder letters, and/or direct phone calls for appointments. This includes reminders for routine scr eening mammograms, diagnostic mammograms, or other Breast Imaging Interventions when appropriate. Th is patient will be placed in the appropriate reminder system. TECHNICAL DOCUMENTATION: FINDING NUMBER: (1) ASSESSMENT: (1) JOB ID: [id number] 2010 [employer]- All Rights Reserved Reading location - IP/workstation name: [email or web address]
== END ==
LOC: WI 14:38
PROVIDERS: ATTEND Family Medicine
DX: Z12.31 Encounter for screening mammogram for malignant neoplasm of breast (principal)
CPT/HCPCS: 77063; 77067